=== PATIENT | female | born 1990 | race Caucasian/White ===

== ENCOUNTER 2019-02-09 15:29 | Inpatient (IN) | payer OTHER ==
[2019-02-09] MEDS ORDERED: NA CHLORIDE 0.9% 2,000 ML ONE (16:19)
[2019-02-09] MEDS ORDERED: METHYLPREDNISOLONE 125 MG INJ ONE (16:19)
[2019-02-09] MEDS ORDERED: LEVALBUTEROL 1.25 MG/3 ML NEB ONE (16:19)
[2019-02-09] MEDS ORDERED: MAGNESIUM SULFATE 1 gm IVPB 0 GM/0 ML BAG IV ONE (16:19)
[2019-02-09 16:35] LABS: Absolute Lymphocytes (CBC) 2.9 K/uL (0.7-4.9); Basophils % 0.4 % (0-1.3); Eosinophils % 1.3 % (0-4.4); Lymphocytes % 14.7 % (15.3-44.8); MPV 7.4 fL (7.6-11.3); RBC Red Blood Cell Count 4.91 M/uL (3.86-4.86)
--- NOTE | 2019-02-09 16:37 | RAD REPORT ---
EXAM DESCRIPTION: Landon Marsh And Keila (2 Views)02/09/2019 4:27 pm CLINICAL HISTORY: Cough COMPARISON: None FINDINGS: Very large tension right pneumothorax with shift of mediastinum towards the left IMPRESSION: Very large tension right pneumothorax Dr Rae notified [id number] February 09, 2019
[2019-02-09 16:38] LABS: Protime INR 0.97
[2019-02-09 16:48] LABS: ALT/SGPT 25 U/L (12-78); AST/SGOT 24 U/L (15-37); Albumin 4.3 g/dL (3.4-5.0); Alkaline Phosphatase 70 U/L (45-117); BUN Blood Urea Nitrogen 8 mg/dL (7-18); Bicarbonate 28 mmol/L (21-32); Bilirubin Direct 0.1 mg/dL (0-0.2); Bilirubin Total 0.4 mg/dL (0.2-1.0); CKMB Creatine Kinase MB < 1.0 ng/mL (0.3-3.6); Creatine Phosphokinase 61 U/L (26-192); Glucose Level 128 mg/dL (74-106); Lipase 53 U/L (73-393); Potassium 3.6 mmol/L (3.5-5.1); Protein, Total 8.2 g/dL (6.4-8.2); Sodium Level 140 mmol/L (136-145); Troponin (Emerg Dept Use Only) < 0.02 ng/mL (0.0-0.045)
[2019-02-09] MEDS ORDERED: HYDROMORPHONE HCL 1 MG/ML INJ ONE (16:48)
[2019-02-09] MEDS ORDERED: ONDANSETRON 4 MG/2 ML VIAL ONE ×2 (16:48→20:17)
[2019-02-09] MEDS ORDERED: KETAMINE HCL 500 MG/5 ML VIAL ONE (16:53)
[2019-02-09] MEDS ORDERED: MIDAZOLAM HCL 2 MG/2 ML INJ ONE (16:53)
[2019-02-09] MEDS ORDERED: LIDOCAINE 1% 20 ML MDV ONE (16:54)
--- NOTE | 2019-02-09 17:31 | RAD REPORT ---
EXAM DESCRIPTION: Cmt Single View02/09/2019 5:17 pm CLINICAL HISTORY: Right pneumothorax COMPARISON: February 09, 2019 chest x-ray FINDINGS: A right chest tube has been placed. Partial reexpansion of the right lung. Moderate right pneumothorax persists.
--- NOTE | 2019-02-09 18:13 | RAD REPORT ---
EXAM DESCRIPTION: Landon Single View02/09/2019 5:55 pm CLINICAL HISTORY: Right pneumothorax COMPARISON: February 09, 2019 FINDINGS: Right chest tube has its tip in the upper medial right hemithorax. Right pneumothorax has enlarged and is large. Zachariah from the ER notified 6:07 p.m. February 09, 2019
--- NOTE | 2019-02-09 18:50 | RAD REPORT ---
EXAM DESCRIPTION: Landon Single View02/09/2019 6:29 pm CLINICAL HISTORY: Right pneumothorax FINDINGS: The right chest tube has been retracted. Right pneumothorax still is large. Exam discussed with Dr. Masters in the emergency room 6:45 p.m.
--- NOTE | 2019-02-09 19:23 | RAD REPORT ---
EXAM DESCRIPTION: CT - Thorax W/ Con - 02/09/2019 6:51 pm CLINICAL HISTORY: Chest pain right pneumothorax COMPARISON: Multiple chest x-rays February 09, 2019 TECHNIQUE: Computed axial tomography of the chest was obtained. 100 cc Isovue 300 was administered i ntravenously. All CT scans are performed using dose optimization technique as appropriate and may include automated exposure control or mA/KV adjustment according to patient size. FINDINGS: A large tension right pneumothorax with depression of the right hemidiaphragm. Left lung is clear The right chest tube is entirely subcutaneous. It extends superiorly medially and posterior. No mediastinal or hilar lymphadenopathy is seen. A pleural effusion is not present. A pericardial effusion is not seen. IMPRESSION: Large tension right pneumothorax Right chest tube is subcutaneous Exam discussed Dr. Masters in Emergency Room 6:55 p.m. February 09, 2019
[2019-02-09] MEDS ORDERED: CEFTRIAXONE/SWI 1gm 1 GM/10 ML SYR ONE (19:28)
[2019-02-09] MEDS ORDERED: LIDOCAINE 1% MPF 30 ML VIAL ONE (19:30)
[2019-02-09] MEDS ORDERED: FENTANYL CITR 100 MCG/2 ML ONE (20:17)
--- NOTE | 2019-02-09 20:39 | ER ---
Nurse's Notes [facility] Name: Jemima Parmar Age: 28 yrs Sex: Female : 1990 Arrival Date: 02/09/2019 Time: 15:32 Bed 4 Private MD: Diagnosis: Spontaneous tension pneumothorax Presentation: 02/09 15:33 Presenting complaint: Patient states: i have bronchitis and was Rx with amoxicillin, hj today, my chest congestion is back and coughing is worse and im short of breath and sharp pain on my back; reports fever; reports night sweats;. Transition of care: patient was not received from another setting of care. Onset of symptoms was February 09, 2019. Risk Assessment: Do you want to hurt yourself or someone else? Patient reports no desire to harm self or others. Initial Sepsis Screen: Does the patient meet any 2 criteria? No. Patient's initial sepsis screen is negative. Does the patient have a suspected source of infection? No. Patient's initial sepsis screen is negative. Care prior to arrival: None. 15:33 Method Of Arrival: Ambulatory 15:33 Acuity: DEJON 3 hj 16:15 Acuity: DEJON 2 ss Triage Assessment: 19:45 General: Appears uncomfortable, slender, Behavior is calm, cooperative. Neuro: Level of bb Consciousness is awake, alert, obeys commands, Oriented to person, place, time, situation. Cardiovascular: Heart tones S1 S2 present. Respiratory: Onset: The symptoms/episode began/occurred today, the patient has moderate shortness of breath. GI: No signs and/or symptoms were reported involving the gastrointestinal system. Derm: Skin is pale. Musculoskeletal: Circulation, motion, and sensation intact. WOOL HAT FLANGER: 21:43 LMP N/A - bb Historical: - Allergies: 15:35 No Known Allergies; hj - Home Meds: 17:53 None [Active]; ch - PMHx: 17:53 placenta stuck in uterus, pt bleeding after delivery, given two blood transfusion; ch - PSHx: 15:35 None; hj - Immunization history:: Adult Immunizations up to date. - Social history:: Smoking status: Patient/guardian denies using tobacco. - Ebola Screening: : No symptoms or risks identified at this time. Screenin:56 Abuse screen: Denies threats or abuse. Denies injuries from another. Nutritional ch screening: No deficits noted. Tuberculosis screening: No symptoms or risk factors identified. Fall Risk None identified. Assessment: 15:56 Reassessment: pt appears very anxious, is speaking rapidly, full sentences well. c/o ch back pain, worsening. states family member has similar symptoms. pt is restless. 16:26 Pain: Complains of pain in back Pain currently is 8 out of 10 on a pain scale. ch Cardiovascular: Heart tones S1 S2 present Rhythm is sinus tachycardia. Respiratory: Reports shortness of breath at rest Airway is patent Respiratory effort is even, labored, Breath sounds are diminished in right middle lobe, right lower lobe, right posterior middle lobe and right posterior lower lobe Breath sounds with wheezes bilaterally. GI: Abdomen is flat, non-distended, Bowel sounds present X 4 quads. : No signs and/or symptoms were reported regarding the genitourinary system. Derm: Skin is pale. Musculoskeletal: Circulation, motion, and sensation intact. 16:30 Reassessment: Patient appears in no apparent distress at this time. pneumothorax ch identified, pt moved to room 4. 16:30 Reassessment: Patient appears in no apparent distress at this time. 1635, pt consented. ch 1639, time out performed. 17:21 Reassessment: Patient appears in no apparent distress at this time. Patient is alert, ch oriented x 3, equal unlabored respirations, skin warm/dry/pink. pt numbed at 1645, neb stopped pt placed on NRB. Chest tube successfully paced at 1657. 1658 pt tube sutured in place. Patient states feeling better. Patient states symptoms have improved. 17:26 Reassessment: Patient appears in no apparent distress at this time. pt states she still ch feels quite a bit of pain. Dr. Masters and [place] back in room to reassess, decision made to replace tube with different type due to remaining pneumo. 17:48 Reassessment: chest tube changed to cook tube, pt states she feels much better. X ray ch in room now. 17:55 Reassessment: chest tube in place, pneumo persists. physician in room to readjust and ch reassess. 18:15 Reassessment: when valve removed, suction heard, manual syring pull by results ch in small amount of air and small amount of fluids. consulting another physician now. 18:28 Reassessment: Patient appears in no apparent distress at this time. Patient and/or ch family updated on plan of care and expected duration. Pain level reassessed. Patient is alert, oriented x 3, equal unlabored respirations, skin warm/dry/pink. Patient states feeling better. Patient states symptoms have improved. Respiratory: Airway is patent Respiratory effort is even, unlabored, pt has lung sounds reji, still diminished on R side. 18:36 Reassessment: Patient appears in no apparent distress at this time. Patient and/or ch family updated on plan of care and expected duration. Pain level reassessed. order to close valve and take pt to CT. 19:09 Reassessment: Patient appears in no apparent distress at this time. I accompany pt to ct and return. pt chest tube in subcutaneous. pt tolerated trip well. pt informed she needs another chest tube. pt states she doesn't think she can do that again. pt family is angry and states they want a different dr or a surgeon or something, that her Grandma had it done and they did it on the first try. 19:12 Reassessment: Patient appears in no apparent distress at this time. pt states she is fine with Dr. Masters doing this. pt verb understanding of possible risks. 19:29 Reassessment: Patient appears in no apparent distress at this time. No changes from previously documented assessment. awaiting another Chest tube pt states she is just very tired, sleeping in room. c/o pain to R side and back intermittently. 19:40 Reassessment: pt is resting quietly Dr Masters at bedside for right sided chest tube bb placement, family at bedside. 20:24 Reassessment: Pt resting quietly, states she is feeling better, is able to take a bb deeper breath after chest tube placement. Dr Masters discussed need for admit to hospital pt verbalized understanding of and agrees to plan of care. 21:40 Reassessment: pt is A\T\O x 4, resp unlabored, NRB changed to NC at 4 LPM per verbal bb order Dr Masters, pt /o pain and medicated as ordered see MAR. Chest tube is in place, IV sites intact, patent with no erythema or edema noted. family at bedside. Vital Signs: 15:35 BP 108 / 72; Pulse 130; Resp 20; Temp 97.5(O); Pulse Ox 97% on R/A; Weight 52.62 kg; hj Height 5 ft. 7 in. (170.18 cm); Pain 8/10; 15:56 BP 90 / 52; Pulse 115; Resp 20; Pulse Ox 100% on Nebulizer Mask; ch 16:30 BP 112 / 72; Pulse 122; Resp 27; Pulse Ox 99% on Nebulizer Mask; ch 17:21 BP 124 / 85; Pulse 90; Resp 16; Temp 98.8; Pulse Ox 100% on R/A; Pain 3/10; ch 17:26 BP 128 / 93; Pulse 84; Resp 20; Pulse Ox 100% on R/A; Pain 2/10; ch 18:11 BP 126 / 94; Pulse 90; Resp 17; Pulse Ox 100% on Venturi mask; aj 18:33 BP 123 / 79; Pulse 89; Resp 23; Temp 97.9; Pulse Ox 97% on 4 lpm NC; Pain 2/10; ch 19:09 BP 118 / 81; Pulse 95; Resp 28; Pulse Ox 100% on 100% Non-rebreather mask; Pain 4/10; ch 19:31 BP 122 / 94; Pulse 79; Resp 15; Pulse Ox 100% on Non-rebreather mask; Pain 0/10; ch 20:21 BP 117 / 91; Pulse 74; Resp 18 S; Pulse Ox 100% on Non-rebreather mask; bb 20:30 BP 128 / 97; Pulse 94; Resp 22; Temp 98.5(O); Pulse Ox 100% on 15% Non-rebreather mask; bb Pain 5/10; 21:44 BP 138 / 102; Pulse 87; Resp 22 S; Pulse Ox 100% on 4 lpm NC; bb 15:35 Body Mass Index 18.17 (52.62 kg, 170.18 cm) ED Course: 15:32 Patient arrived in ED. mr 15:34 Triage completed. hj 15:35 Arm band placed on left wrist. hj 15:49 Austin Garcia NP is PHCP. pm1 15:49 Bharat Rae MD is Attending Physician. pm1 15:50 Hortencia Monson, RN is Primary Nurse. 15:56 Patient has correct armband on for positive identification. Bed in low position. Call light in reach. Side rails up X 1. security monitor on. Pulse ox on. NIBP on. Door closed. Noise minimized. Lights dimmed. 15:56 Inserted saline lock: 18 gauge in right upper arm, using aseptic technique. Blood ch collected. 16:24 Chest Pa And Lat (2 Views) XRAY In Process Unspecified. EDMS 16:24 No apparent distress. Resting quietly. ch 16:24 Initial lab(s) drawn, by mi, sent to lab. First set of blood cultures drawn. ch 17:14 XRAY Chest (1 view) In Process Unspecified. EDMS 17:55 XRAY Chest (1 view) In Process Unspecified. EDMS 17:57 Assist provider with chest tube insertion with 16 Fr. in right anterior lateral chest ch wall. Tray was set up. Attached to wall suction, Chest tube inserted by Cleveland Masters MD Placement verified by. 18:29 Chest Single View XRAY In Process Unspecified. EDMS 18:[address] via stretcher. nj 18:51 CT completed. Patient tolerated procedure well. Patient moved back from CT. nj 18:52 CT Chest W/ Con In Process Unspecified. EDMS 19:45 Assist provider with chest tube insertion with 16 Fr. in right anterior lateral chest bb wall. Tray was set up. Attached to wall suction, Chest tube inserted by Cleveland Masters MD Placement verified by CXR, fluctuation of fluid, return of air, Dressed with foam tape, silk tape, 4X4s, tegaderm Patient tolerated poorly. IV is patent, is intact. 20:18 Dionne Álvarez RN is Primary Nurse. bb 20:38 Rohan Sims MD is Hospitalizing Provider. pm1 20:40 XRAY Chest (1 view) In Process Unspecified. EDMS 20:54 Attending Physician role handed off by Bharat Rae MD ps1 20:54 Cleveland Masters MD is Attending Physician. ps1 21:43 Patient admitted, IV remains in place. bb Administered Medications: 16:10 Drug: Xopenex (3) 1.25 mg Route: Inhalation; ch 16:35 Follow up: Response: No adverse reaction; Marked relief of symptoms ch 16:20 Drug: AtroVENT Aerosol 0.5 mg Route: Inhalation; ch 16:40 Follow up: Response: No adverse reaction; Wheezing diminished ch 16:25 Drug: NS 0.9% (30 ml/kg) 30 ml/kg Route: IV; Rate: bolus; Site: right upper arm; ch 18:26 Follow up: IV Status: Order to discontinue infusion; IV Intake: 1000ml 16:25 Drug: NS 0.9% (30 ml/kg) 1500 ml Route: IV; Rate: bolus; Site: right upper arm; ch 19:19 Drug: Rocephin 1 grams Route: IV; Rate: calculated rate; Site: right antecubital; bb 19:25 Follow up: IV Status: Completed infusion; IV Intake: 10ml bb 20:08 Drug: Zofran 4 mg Route: IVP; Site: left antecubital; aj 21:04 Follow up: Response: No adverse reaction bb 20:09 Drug: fentaNYL (PF) 100 mcg Route: IVP; Site: left antecubital; aj 21:00 Follow up: Response: No adverse reaction; Pain is decreased bb 21:39 Drug: morphine 4 mg Route: IVP; Site: right antecubital; bb 21:39 Follow up: Response: medication administered prior to pt transferred to bed 407 bb Intake: 18:26 IV: 1000ml; Total: 1000ml. 19:25 IV: 10ml; Total: 1010ml. bb Outcome: 20:00 Instructed on the need for admit. bb 20:38 Decision to Hospitalize by Provider. pm1 21:42 Admitted to Med/surg accompanied by nurse, family with patient, via stretcher, room bb 407, with oxygen, with chart, Report called to Augustina RN by Ifeoma DANIEL 21:42 Condition: stable 22:00 Patient left the ED. aj Signatures: Dispatcher [employer] EDMS Hortencia Monson RN Deepthi Quijano ch RN Michelle Nguyen mr ÁlvarezDionne RN Cheri Israel RN RN ss Joaquin, Henry, RN RN hj Austin Garcia, YURI FLOOR MANAGER pm1 Edilberto Shaikh Phillip, MD MD ps1 Corrections: (The following items were deleted from the chart) 15:39 15:35 BP 108 / 72; Pulse 121bpm; Resp 20bpm; Pulse Ox 100% RA; Temp 97.5F Oral; 52.62 hj kg; Height 5 ft. 7 in.; BMI: 18.1; Pain 03/21; hj 17:20 15:56 Reassessment: Patient appears in no apparent distress at this time. pt appears ch very anxious, is speaking rapidly, full sentences well. no s/s of distress, c/o back pain, worsening. states family member has similar symptoms. pt is restless. 17:53 15:35 PMHx: None; ch 17:53 17:26 Reassessment: Patient appears in no apparent distress at this time. pt states she ch still feels quite a bit of pain. Dr. Masters and [place] back in room to reassess, decision made to replace tube with different type ch 18:49 18:[address] via wheelchair. nj nj
--- NOTE | 2019-02-09 20:39 | EDPHYS ---
Physician Documentation [facility] Name: Jemima Parmar Age: 28 yrs Sex: Female : 1990 Arrival Date: 02/09/2019 Time: 15:32 Bed 4 Private MD: ED Physician Cleveland Masters HPI: 02/09 17:11 This 28 yrs old Female presents to ER via Ambulatory with complaints of Chest pm1 Congestion, Breathing Difficulty, Back Pain. 17:11 The patient has shortness of breath at rest. Onset: The symptoms/episode began/occurred pm1 this morning. Duration: The symptoms are continuous, and are steadily getting worse. The patient's shortness of breath is aggravated by nothing, is alleviated by nothing. Associated signs and symptoms: Pertinent positives: non-productive cough, right sided back pain, Pertinent negatives: chest pain, fever, nausea, vomiting. Severity of symptoms: in the emergency department the symptoms are worse. The patient has not experienced similar symptoms in the past. The patient has not recently seen a physician. Patient with bronchitis onset about two weeks ago. Finished amoxicillin prescription from [facility] 2 days ago. Patient felt completely well yesterday and was actually went jogging yesterday. Patient reports return of cough, shortness of breath, and right sided back pain. LAB COURIER: 21:43 LMP N/A - bb Historical: - Allergies: 15:35 No Known Allergies; hj - Home Meds: 17:53 None [Active]; ch - PMHx: 17:53 placenta stuck in uterus, pt bleeding after delivery, given two blood transfusion; - PSHx: 15:35 None; hj - Immunization history:: Adult Immunizations up to date. - Social history:: Smoking status: Patient/guardian denies using tobacco. - Ebola Screening: : No symptoms or risks identified at this time. ROS: 17:11 Constitutional: Negative for fever, chills, and weight loss, Eyes: Negative for injury, pm1 pain, redness, and discharge, ENT: Negative for injury, pain, and discharge, Neck: Negative for injury, pain, and swelling, Cardiovascular: Negative for chest pain, palpitations, and edema. 17:11 Abdomen/GI: Negative for abdominal pain, nausea, vomiting, diarrhea, and constipation, Back: Negative for injury and pain, : Negative for injury, bleeding, discharge, and swelling, MS/Extremity: Negative for injury and deformity, Skin: Negative for injury, rash, and discoloration, Neuro: Negative for headache, weakness, numbness, tingling, and seizure. 17:11 Respiratory: Positive for cough, shortness of breath, Negative for wheezing. Exam: 17:11 Constitutional: This is a well developed, well nourished patient who is awake, alert, pm1 and in no acute distress. Head/Face: Normocephalic, atraumatic. Eyes: Pupils equal round and reactive to light, extra-ocular motions intact. Lids and lashes normal. Conjunctiva and sclera are non-icteric and not injected. Cornea within normal limits. Periorbital areas with no swelling, redness, or edema. ENT: Nares patent. No nasal discharge, no septal abnormalities noted. Tympanic membranes are normal and external auditory canals are clear. Oropharynx with no redness, swelling, or masses, exudates, or evidence of obstruction, uvula midline. Mucous membranes moist. Neck: Trachea midline, no thyromegaly or masses palpated, and no cervical lymphadenopathy. Supple, full range of motion without nuchal rigidity, or vertebral point tenderness. No Meningismus. Chest/axilla: Normal chest wall appearance and motion. Nontender with no deformity. No lesions are appreciated. 17:11 Abdomen/GI: Soft, non-tender, with normal bowel sounds. No distension or tympany. No guarding or rebound. No evidence of tenderness throughout. 17:11 Skin: Warm, dry with normal turgor. Normal color with no rashes, no lesions, and no evidence of cellulitis. MS/ Extremity: Pulses equal, no cyanosis. Neurovascular intact. Full, normal range of motion. 17:11 Cardiovascular: Rate: tachycardic, Rhythm: regular, Heart sounds: normal. 17:11 Respiratory: Breath sounds: decreased breath sounds, are heard in the right posterior upper lobe and right posterior middle lobe. 17:11 Back: pain, that is mild, of the right mid back. 17:11 Neuro: Motor: is normal, moves all fours. Vital Signs: 15:35 BP 108 / 72; Pulse 130; Resp 20; Temp 97.5(O); Pulse Ox 97% on R/A; Weight 52.62 kg; hj Height 5 ft. 7 in. (170.18 cm); Pain 8/10; 15:56 BP 90 / 52; Pulse 115; Resp 20; Pulse Ox 100% on Nebulizer Mask; ch 16:30 BP 112 / 72; Pulse 122; Resp 27; Pulse Ox 99% on Nebulizer Mask; ch 17:21 BP 124 / 85; Pulse 90; Resp 16; Temp 98.8; Pulse Ox 100% on R/A; Pain 3/10; ch 17:26 BP 128 / 93; Pulse 84; Resp 20; Pulse Ox 100% on R/A; Pain 2/10; ch 18:11 BP 126 / 94; Pulse 90; Resp 17; Pulse Ox 100% on Venturi mask; aj 18:33 BP 123 / 79; Pulse 89; Resp 23; Temp 97.9; Pulse Ox 97% on 4 lpm NC; Pain 2/10; ch 19:09 BP 118 / 81; Pulse 95; Resp 28; Pulse Ox 100% on 100% Non-rebreather mask; Pain 4/10; ch 19:31 BP 122 / 94; Pulse 79; Resp 15; Pulse Ox 100% on Non-rebreather mask; Pain 0/10; ch 20:21 BP 117 / 91; Pulse 74; Resp 18 S; Pulse Ox 100% on Non-rebreather mask; bb 20:30 BP 128 / 97; Pulse 94; Resp 22; Temp 98.5(O); Pulse Ox 100% on 15% Non-rebreather mask; bb Pain 5/10; 21:44 BP 138 / 102; Pulse 87; Resp 22 S; Pulse Ox 100% on 4 lpm NC; bb 15:35 Body Mass Index 18.17 (52.62 kg, 170.18 cm) Procedures: 17:11 Chest tube insertion: the site was prepped using Betadine, in sterile fashion, Tube pm1 size: a 8 scottish chest tube was inserted, introduced in right lateral [facility], dressed with tegaderm, the patient tolerated the procedure well. MDM: 15:49 Patient medically screened. pm1 20:33 Data reviewed: vital signs. Data interpreted: Pulse oximetry: on room air is 100 %. pm1 Interpretation: normal. Counseling: I had a detailed discussion with the patient and/or guardian regarding: the historical points, exam findings, and any diagnostic results supporting the discharge/admit diagnosis, lab results, radiology results, to return to the emergency department if symptoms worsen or persist or if there are any questions or concerns that arise at home. 20:37 Physician consultation: Rohan Sims MD was called at 20:37, was contacted at 20:37, pm1 regarding admission, patient's condition, and will see patient tomorrow, would like further tests performed, chest xray in the AM. 20:54 ED course: patient initially had a non-fenestrated chest tube placed from the Thal kit. ps1 It had moderate resolution of the pneumothorax. We then used the pneumothorax kit tube. CXR was used for confirmation and it appeared to look in good position but would not pull air and the PTX was worsened. CT was ordered for confimation and tube was subcutaneous in the posterior chest. Replacement of the chest tube was performed by myself and had good condensation in the tube. CXR confirmed resolution of PTX. No complications. Pt to be admitted to surgery service. . 02/09 16:03 Order name: Basic Metabolic Panel pm1 02/09 16:03 Order name: Blood Culture Adult (2) pm1 02/09 16:03 Order name: CBC with Diff pm1 02/09 16:03 Order name: Ckmb pm1 02/09 16:03 Order name: CPK; Complete Time: 17:11 pm1 02/09 16:03 Order name: Lactate; Complete Time: 17:11 pm1 02/09 16:03 Order name: LFT's; Complete Time: 17:11 pm1 02/09 16:03 Order name: Lipase; Complete Time: 17:11 pm1 02/09 16:03 Order name: Procalcitonin; Complete Time: 17:11 pm1 02/09 16:03 Order name: Protime (+inr); Complete Time: 17:11 pm1 02/09 16:03 Order name: Ptt, Activated; Complete Time: 17:11 pm1 02/09 16:03 Order name: Troponin (emerg Dept Use Only); Complete Time: 17:11 pm1 02/09 16:03 Order name: Urine Microscopic Only pm1 02/09 16:04 Order name: Basic Metabolic Panel; Complete Time: 17:11 EDWA 02/09 16:04 Order name: Blood Culture EDWA 02/09 16:04 Order name: CBC with Automated Diff; Complete Time: 17:11 EDWA 02/09 16:04 Order name: CKMB Creatine Kinase MB; Complete Time: 17:11 EDWA 02/09 16:09 Order name: Chest Pa And Lat (2 Views) XRAY; Complete Time: 17:11 pm1 02/09 16:53 Order name: XRAY Chest (1 view); Complete Time: 18:06 ss 02/09 17:38 Order name: XRAY Chest (1 view); Complete Time: 18:19 ss 02/09 18:19 Order name: Chest Single View XRAY; Complete Time: 19:59 pm1 02/09 18:38 Order name: CT Chest W/ Con; Complete Time: 19:59 pm1 02/09 20:17 Order name: XRAY Chest (1 view); Complete Time: 20:47 bb 02/09 16:03 Order name: Cardiac monitoring; Complete Time: 16:25 pm1 02/09 16:03 Order name: EKG - Nurse/Tech; Complete Time: 21:45 pm1 02/09 16:03 Order name: IV Saline Lock - Large Bore; Complete Time: 16:25 pm1 02/09 16:03 Order name: Labs collected and sent; Complete Time: 16:25 pm1 02/09 16:03 Order name: O2 Per Protocol; Complete Time: 16:25 pm1 02/09 16:03 Order name: O2 Sat Monitoring; Complete Time: 16:26 pm1 02/09 20:44 Order name: NPO EDWA Administered Medications: 16:10 Drug: Xopenex (3) 1.25 mg Route: Inhalation; ch 16:35 Follow up: Response: No adverse reaction; Marked relief of symptoms ch 16:20 Drug: AtroVENT Aerosol 0.5 mg Route: Inhalation; ch 16:40 Follow up: Response: No adverse reaction; Wheezing diminished ch 16:25 Drug: NS 0.9% (30 ml/kg) 30 ml/kg Route: IV; Rate: bolus; Site: right upper arm; ch 18:26 Follow up: IV Status: Order to discontinue infusion; IV Intake: 1000ml ch 16:25 Drug: NS 0.9% (30 ml/kg) 1500 ml Route: IV; Rate: bolus; Site: right upper arm; ch 19:19 Drug: Rocephin 1 grams Route: IV; Rate: calculated rate; Site: right antecubital; bb 19:25 Follow up: IV Status: Completed infusion; IV Intake: 10ml bb 20:08 Drug: Zofran 4 mg Route: IVP; Site: left antecubital; aj 21:04 Follow up: Response: No adverse reaction bb 20:09 Drug: fentaNYL (PF) 100 mcg Route: IVP; Site: left antecubital; aj 21:00 Follow up: Response: No adverse reaction; Pain is decreased bb 21:39 Drug: morphine 4 mg Route: IVP; Site: right antecubital; bb 21:39 Follow up: Response: medication administered prior to pt transferred to bed 407 bb Disposition: 02/10 13:13 Co-signature as Attending Physician, Cleveland Masters MD I agree with the assessment and ps1 plan of care. PA/RF MANAGER's history reviewed, patient interviewed, and examined. See my notes for additional details of service. Patient tolerated the procedure well. No VS changes. Pain addressed during procedure and breaks taken to ensure comfort. Pain medications ordered and re-administration of lidocaine injections to site. Patient experienced reasonable expected amount of discomfort during procedure however tolerated the procedure well and I addressed her pain during the procedure. Addressed concerns with patient and family. Patient led the conversation and did not express any concern and requested that I perform the procedure. . Disposition: 02/09/19 20:38 Hospitalization ordered by Rohan Sims for Inpatient Admission. Preliminary diagnosis is Spontaneous tension pneumothorax. - Bed requested for Telemetry/MedSurg (Inpatient). - Status is Inpatient Admission. aj - Condition is Stable. - Problem is new. - Symptoms have improved. UTI on Admission? No Critical care time excluding procedures: 02/09 22:20 Critical care time: Bedside Care: 25 minutes, Consultation: 20 minutes, Family pm1 Intervention: 15 minutes. Total time: 60 minutes Signatures: Dispatcher [employer] Hortencia Johansen RN RN ch Myers, Amanda, RN RN aj Ballard, Brenda, RN RN bb Joaquin, Henry, RN RN hj Garcia, Cindy, RN RN cg Marinas, Patrick, RF MANAGER RF MANAGER pm1 Cleveland Masters MD MD ps1 Corrections: (The following items were deleted from the chart) 16:12 16:05 Chest Single View+RAD.RAD.[email or web address] ordered. EDMS EDMS 17:53 15:35 PMHx: None; ch 18:28 16:03 Accucheck ordered. pm1 ch 20:57 20:38 Hospitalization Ordered by Rohan Sims MD for Inpatient Admission. Preliminary cg diagnosis is Spontaneous tension pneumothorax. Bed requested for Telemetry/MedSurg (Inpatient). Status is Inpatient Admission. Condition is Stable. Problem is new. Symptoms have improved. UTI on Admission? No. pm1 22:00 20:57 02/09/2019 20:38 Hospitalization Ordered by Rohan Sims MD for Inpatient aj Admission. Preliminary diagnosis is Spontaneous tension pneumothorax. Bed requested for Telemetry/MedSurg (Inpatient). Status is Inpatient Admission. Condition is Stable. Problem is new. Symptoms have improved. UTI on Admission? No. cg 02/10 02:49 07 17:11 Chest tube insertion: the site was prepped using Betadine, in sterile pm1 fashion, pm1
--- NOTE | 2019-02-09 20:45 | RAD REPORT ---
EXAM DESCRIPTION: RADChest Single View02/09/2019 8:39 pm CLINICAL HISTORY: Pneumothorax COMPARISON: February 09, 2019 FINDINGS: Right chest tube has been placed with re-expansion of the right lung. Small right residual pneumothorax. Right lateral chest wall subcutaneous emphysema
[2019-02-09] MEDS: NA CHLORIDE 0.9% 1,000 ML IV SCH (22:47)
[2019-02-10] MEDS: MORPHINE 4 MG/ML SYR IV PRN ×4 (04:20→20:04)
[2019-02-10 04:59] LABS: Urine Appearance CLEAR; Urine Bilirubin NEGATIVE (NEG); Urine Blood TRACE (NEG); Urine Color YELLOW; Urine Glucose NEGATIVE (NEG); Urine Protein NEGATIVE (NEG); Urine Specific Gravity >=1.030 (1.005-1.030); Urine Urobilinogen 0.2 mg/dL (0.2-1.0)
[2019-02-10 05:03] LABS: Urine Microscopic Reflex ORDER UMIC
[2019-02-10 05:17] LABS: Urine Bacteria <20 /HPF (<20); Urine Culture Reflex Order NOT NEEDED; Urine RBC <5 /HPF (NONE SEEN)
--- NOTE | 2019-02-10 08:23 | RAD REPORT ---
EXAM DESCRIPTION: RAD - Chest Single View - 02/10/2019 5:49 am CLINICAL HISTORY: Follow up admission chest Xray Chest pain. COMPARISON: Chest Single View dated 02/09/2019; Chest Single View dated 02/09/2019; Chest Single View da randy 02/09/2019; Chest Single View dated 02/09/2019; Thorax W/ Con dated 02/09/2019 FINDINGS: Portable technique limits examination quality. Moderate to large right pneumothorax is present with right-sided chest tube in place. Cardiomediastin al structures are midline. No displaced fractures. IMPRESSION: Moderate to large right pneumothorax is seen with chest tube in place directed cephalad.
[2019-02-10] MEDS: NA CHLORIDE 0.9% 1,000 ML IV SCH ×2 (09:13→17:13)
--- NOTE | 2019-02-10 10:57 | EKG ---
Test Date: 2019-02-09 Test Time: 21:27:28 Plant Taxonomist: BRANDON MEASUREMENT RESULTS: Intervals: Rate: 74 DE: 132 QRSD: 94 QT: 400 QTc: 444 Call: P: 50 DE: 132 QRS: 82 T: 72 INTERPRETIVE STATEMENTS: Normal sinus rhythm Normal ECG No previous ECG available for comparison Electronically Signed On 02-10-19 10:54:57 CDT by Juan M Soriano
--- NOTE | 2019-02-10 11:18 | P.HP ---
Date of Service: 02/10/19 PC: This patient was out running, when she noticed sudden onset of shortness of breath. She came to the emergency room for diagnosis and treatment. HPC: Patient had recently had some bronchitis. Went out for a run to see if she could help clear it. Had some coughing proceeded shortness of breath. PMH: Negative PSHx: Retained placenta SOC: No known allergies SYS REVIEW: Had a cough (which she called bronchitis) last week. No urinary complaints. Otherwise states she has a relatively good health O/E awake alert in no acute distress HEENT: Trachea midline. No JVD Chest: Surgical dressing on the right side of the chest ABD: Soft LOCO: Intact DATA: Chest x-ray shows residual pneumothorax this morning. IMPRESSION: On physical exam today and well explained to the patient her underlying pathology, noted that the wall suction had come detached from the Pleur-Evac. This may account for her residual pneumo. Obviously has air leak has the chest tube is bubbling previous sleep when not connected to the wall. PLAN: I will transfer the patient to the ICU. We will monitor her clinically. Encourage incentive spirometry. She has large bleb seen on the CT scan. I will contact a thoracic surgeon if there is no improvement and she may be a candidate for an early VATS.
--- NOTE | 2019-02-10 11:23 | P.CNS ---
Date of Consult: 02/10/19
[2019-02-10] MEDS: ONDANSETRON 4 MG/2 ML VIAL IV PRN (12:27)
--- NOTE | 2019-02-10 12:54 | RAD REPORT ---
EXAM DESCRIPTION: RAD - Chest Single View - 02/10/2019 12:47 pm CLINICAL HISTORY: Pneumothorax COMPARISON: February 09 and February 10 portable imaging, February 09 CT chest TECHNIQUE: AP portable chest image was obtained 1241 hours in expiration . FINDINGS: Right-sided chest tube remains in place with the tip in the medial right apex. Positioning is stable. Small pneumothorax remains in the apex and lateral upper right chest. The pneumothorax mclaughlin s very substantially improved imaging earlier in the day. Heart size is normal. No vascular engorgement. Minimal right pleural fluid collection present. No acu te bony abnormality seen. No acute aortic finding. Subcutaneous emphysema on the right has not change d. IMPRESSION: Right-sided pneumothorax has substantially reduced from earlier in the day. Approximatel y 10% pneumothorax remaining in the apex and lateral right upper chest. Chest tube is in place with the tip in the medial right apex similar to earlier in the day.
[2019-02-10] MEDS: HYDROCODONE/APAP 5/325 MG TAB PO PRN (17:13)
[2019-02-11] MEDS: HYDROCODONE/APAP 5/325 MG TAB PO PRN ×3 (00:21→20:00)
[2019-02-11] MEDS: NA CHLORIDE 0.9% 1,000 ML IV SCH ×4 (03:00→14:27)
[2019-02-11] MEDS: MORPHINE 4 MG/ML SYR IV PRN ×2 (05:07→20:25)
[2019-02-11 05:46] LABS: BUN Blood Urea Nitrogen 5 mg/dL (7-18); Bicarbonate 29 mmol/L (21-32); Glucose Level 95 mg/dL (74-106); Sodium Level 141 mmol/L (136-145)
[2019-02-11 05:54] LABS: Absolute Lymphocytes (CBC) 2.9 K/uL (0.7-4.9); Basophils % 0.4 % (0-1.3); Eosinophils % 4.4 % (0-4.4); Hematocrit 37.4 % (36.0-45.0); Lymphocytes % 37.7 % (15.3-44.8); MPV 7.3 fL (7.6-11.3); Monocytes % 7.3 % (3.3-12.3); RBC Red Blood Cell Count 4.13 M/uL (3.86-4.86)
--- NOTE | 2019-02-11 08:28 | RAD REPORT ---
EXAM DESCRIPTION: RAD - Chest Pa And Lat (2 Views) - 02/11/2019 7:27 am CLINICAL HISTORY: Pneumothorax, right-sided chest tube COMPARISON: February 10 TECHNIQUE: PA and lateral views the chest were obtained. PA imaging was performed in both inspiratio n and expiration. FINDINGS: The patient's known right-sided pneumothorax has substantially enlarged since the prior da y study. Pneumothorax is approximately 50% on the inspiration film and 60% or greater on the expirati on film. Right pleural fluid collection remains. Chest tube remains in place with the tip in the medi al right apex. Trachea is midline. No acute lung parenchymal process. Subcutaneous emphysema has not changed along the right lateral chest. Heart size is normal and central vasculature is within normal limits. No acute bony finding noted. No aortic abnormality. IMPRESSION: Right-sided hydropneumothorax has substantially enlarged since the prior day study. Pneu mothorax is approximately 50% on the inspiration film and 60% or greater on the expiration film. Pleural fluid volume has not changed. No change in positioning of the chest tube.
[2019-02-11] MEDS ORDERED: IBUPROFEN 200 MG TAB PO PRN (14:22)
--- NOTE | 2019-02-11 14:35 | P.PN ---
Date of Service: 02/11/19 S: S: S: Patient feels well today, in no discomfort at the moment. Does not feel short of breath. [place] tapping in the right side of the chest earlier today , but has resolved. O: Vital signs remain stable, and chest movement appears to be equal bilaterally surgical dressing is intact water-seal as connected to wall suction. Chest x-rays did today showed a 60 to 40% pneumothorax on the right side. A: The patient appears much improved, and from clinical impression I believe that the ruptured bleb is resolving. The chest x-ray today was taken down in the department is bone inspiration and expiration view but more importantly the patient was taken off the negative suction and was just to underwater seal wall she was down in the department. I believe that the size of the air leak is still in there and that is why she had size of residual pneumo on the film. P: I believe that we are making progress with this patient. Her long will stay appy if left to underwater seal and it appears that the air leak is much less today and in fact is only intermittent. Will Chest text x-ray in a.m.. If it shows improvement, may transfer to the floor. Anticipate chest tube removal possibly on Saturday or Saturday with the patient being discharged on Saturday. Later on we will try and arrange for a thoracic surgeon to evaluate this patient and see whether any further surgery such as a VATS is necessary
[2019-02-11] MEDS: ONDANSETRON 4 MG/2 ML VIAL IV PRN (20:25)
[2019-02-12] MEDS: ONDANSETRON 4 MG/2 ML VIAL IV PRN ×2 (01:08→08:32)
[2019-02-12] MEDS: MORPHINE 4 MG/ML SYR IV PRN ×5 (01:10→20:24)
[2019-02-12 07:22] VITALS: BMI 17.6
--- NOTE | 2019-02-12 08:26 | RAD REPORT ---
EXAM DESCRIPTION: RADChest Single View02/12/2019 6:00 am CLINICAL HISTORY: Right pneumothorax COMPARISON: February 11, 2019 FINDINGS: Right pneumothorax has decreased in size and is moderate. The pneumothorax involves the en tire lateral upper, mid and lower right hemithorax. Chest tube has its tip overlying upper medial rig ht hemithorax Small right pleural effusion Mild right lung opacities. Heart is normal size IMPRESSION: Right pneumothorax has decreased in size and is moderate
[2019-02-12] MEDS: NA CHLORIDE 0.9% 1,000 ML IV SCH (08:35)
--- NOTE | 2019-02-12 15:02 | P.PN ---
Date of Service: 02/12/19 S: Patient has no specific complaints. Yesterday evening has some chest discomfort, was relieved by morphine. The like something was poking on her insides. O: Chest x-ray still shows residual pneumothorax. The chest tube system was checked. I suspect the air leak at the wall suction to the apparatus connection. Chest movement equal bilaterally. The old dressing was taken down and the chest tube was inspected from insertion site to the Pleur-Evac. The Pleur-Evac was changed out. A: Considerable progress being made. It appears that the pneumo is starting to resolve. P: Patient stable the transfer to the floor. We will repeat the chest x-ray in the a.m.. In the meantime she is to continue on-20 cm of water. Underwater seal.
[2019-02-12] MEDS: HYDROCODONE/APAP 5/325 MG TAB PO PRN (22:46)
[2019-02-13] MEDS: MORPHINE 4 MG/ML SYR IV PRN ×6 (05:31→22:58)
[2019-02-13] MEDS: HYDROCODONE/APAP 5/325 MG TAB PO PRN ×2 (07:54→21:04)
--- NOTE | 2019-02-13 08:23 | RAD REPORT ---
EXAM DESCRIPTION: Cmt Single View02/13/2019 6:59 am CLINICAL HISTORY: Right pneumothorax COMPARISON: February 12, 2019 FINDINGS: The right chest tube has retracted with its tip lateral to the pleural space. Right pneumo thorax is large. Shift of mediastinum and flattening of the right hemidiaphragm indicates the pneumot horax is under tension IMPRESSION: Large tension right pneumothorax Patient's nurse Renard notified 8:15 a.m. on 02/13/2019
--- NOTE | 2019-02-13 10:01 | RAD REPORT ---
EXAM DESCRIPTION: L[place] Single View02/13/2019 9:53 am CLINICAL HISTORY: Right pneumothorax COMPARISON: February 13, 2019 FINDINGS: Chest tube has been placed with its tip in the medial upper right hemithorax. Right lung h as re-expanded. Small right pneumothorax and small right pleural effusion IMPRESSION: Right chest tube has been inserted. Right lung has re-expanded. Small residual right pne umothorax
--- NOTE | 2019-02-13 10:19 | P.PN ---
Date of Service: 02/13/19 See the call from the surgical floor that the patient's chest tube was out of the pleural cavity. Patient was admitted acute distress, but was transferred to the ICU. On physical exam the patient was relatively comfortable vital signs were stable. A 32 Slovenian chest tube was read placed into the right pleural cavity. Chest x-ray initially showed a to be advanced slightly across the midline. It has been pulled back and another chest x-ray is pending. The patient is comfortable, vital signs are stable, and she is been were reattached to the Pleur-Evac.
--- NOTE | 2019-02-13 10:22 | P.OP ---
Date of Service: 02/13/19 Findings and Operative Technique In the ICU, the patient with position on the bed with the right arm elevated. After observing universal precautions and a surgical time-out, the 5th intercostal space was identified. It was marked and then injected with 1% lidocaine. A skin incision was made. This brought down through the skin and subcutaneous tissue. We were now able to insert a thoracostomy catheter. The catheter is 32 Persian. Then the catheter was sutured in place. A chest x-ray showed that the chest tube was across the midline. It was gently withdrawn and the patient was in a comfortable condition with another chest x-ray pending. A sterile dressing has been applied.
--- NOTE | 2019-02-13 10:40 | RAD REPORT ---
[facility] 10[facility]28 am CLINICAL HISTORY: Right pneumothorax COMPARISON: February 13, 2019 FINDINGS: Right chest tube has been retracted. Tip overlies the medial mid right hemithorax. Right pneumothorax is mildly increased in size and is small to moderate.
[2019-02-13] MEDS: ONDANSETRON 4 MG/2 ML VIAL IV PRN (17:55)
[2019-02-13] MEDS ORDERED: CEFOXITIN SODIUM 1 GM/VIAL IVPB SCH (18:00)
[2019-02-13] MEDS: CEFOXITIN/SWI 1gm 1 GM/10 ML SYR IVP SCH (18:13)
[2019-02-14] MEDS: CEFOXITIN/SWI 1gm 1 GM/10 ML SYR IVP SCH ×4 (00:03→17:27)
[2019-02-14] MEDS: HYDROCODONE/APAP 5/325 MG TAB PO PRN ×2 (03:52→08:28)
--- NOTE | 2019-02-14 11:46 | RAD REPORT ---
EXAM DESCRIPTION: RAD - Chest Single View - 02/14/2019 6:59 am CLINICAL HISTORY: reassess pneumo, chest tube Chest pain. COMPARISON: Chest Single View dated 02/13/2019; Chest Single View dated 02/13/2019; Chest Single View da randy 02/13/2019; Chest Single View dated 02/12/2019; Chest Pa And Lat (2 Views) dated 02/11/2019; Chest Sing le View dated 02/10/2019; Chest Single View dated 02/10/2019 FINDINGS: Portable technique limits examination quality. Large bore right-sided chest tube is in place, unchanged. Small right apical pneumothorax is seen, mi ldly decreased in size since 02/13/2019. The heart is normal in size. Cardiomediastinal structures ar e midline. IMPRESSION: Right-sided chest tube is in place with small right apical pneumothorax, mildly diminish ed in size since 02/13/2019.
[2019-02-14] MEDS ORDERED: MAGNESIUM HYDROXIDE 8% 30 ML PO ONE (12:08)
--- NOTE | 2019-02-14 13:49 | P.PN ---
Date of Service: 02/14/19 Recieved a call from the surgical floor that the patient's chest tube was out of the pleural cavity. Patient was admitted acute distress, but was transferred to the ICU. On physical exam the patient was relatively comfortable vital signs were stable. A 32 [place] chest tube was read placed into the right pleural cavity. Chest x-ray initially showed a to be advanced slightly across the midline. It has been pulled back and another chest x-ray is pending. The patient is comfortable, vital signs are stable, and she is been were reattached to the Pleur-Evac.
--- NOTE | 2019-02-14 13:51 | P.PN ---
Date of Service: 02/14/19 S: The patient is no specific complaints, in fact is quite comfortable today. She does state however she is not had a bowel movement for 1 week. O: Vital signs remain stable, chest x-ray shows small right apical pneumo. No air leak. A: Surgically stable P: Patient will receive a laxative to have stridor have bowel movements. We will leave her on underwater seal until tomorrow's a chest x-ray. At that point , may be stable for transfer to the floor on underwater seal. This was explained to the patient, she seems comfortable with this.
[2019-02-14] MEDS: ONDANSETRON 4 MG/2 ML VIAL IV PRN ×2 (14:59→22:00)
[2019-02-14] MEDS: MORPHINE 4 MG/ML SYR IV PRN (14:59)
[2019-02-14] MEDS ORDERED: MINERAL OIL 30 ML UCUP PO ONE (17:36)
[2019-02-14] MEDS ORDERED: MAGNESIUM CITRATE 300 ML BOT PO SCH (18:00)
[2019-02-14] MEDS: IBUPROFEN 400 MG TAB PO PRN (18:15)
[2019-02-15] MEDS: CEFOXITIN/SWI 1gm 1 GM/10 ML SYR IVP SCH ×4 (00:55→17:24)
[2019-02-15] MEDS: HYDROCODONE/APAP 7.5/325 MG TAB PO PRN ×2 (06:28→21:30)
--- NOTE | 2019-02-15 07:40 | RAD REPORT ---
EXAM DESCRIPTION: RAD - Chest Single View - 02/15/2019 6:52 am CLINICAL HISTORY: Right-sided pneumothorax COMPARISON: February 14 TECHNIQUE: AP portable chest image was obtained 0643 hours . FINDINGS: No change in positioning of the right-side chest tube. Small right apical pneumothorax is still present. Size of the pneumothorax is not significantly different from the prior day study. No new or progressive lung parenchymal finding. Left lung field is clear. Trachea remains in the midl ine. Heart and vasculature are normal. No pleural fluid collection. No acute bony abnormality seen. N o acute aortic findings suspected. IMPRESSION: Right-sided apical pneumothorax stable in size from February 14 study. No change in positioning of the right chest tube.
[2019-02-15] MEDS ORDERED: BISACODYL 10 MG RECTAL SUPP PR ONE (13:00)
[2019-02-15] MEDS: IBUPROFEN 400 MG TAB PO PRN (14:22)
[2019-02-15 17:04] VITALS: O2SAT 97
--- NOTE | 2019-02-15 21:02 | P.PN ---
Date of Service: 02/15/19 S: Patient had a relatively uneventful day. No specific complaints. Finally had bowel movements. O.: Chest x-ray still shows a small apical pneumo on the right side. Chest tube was in good position with the midline inside the chest. No subcutaneous emphysema. Chest tube is on suction and there is no evidence of any leak. A: Surgically stable at the moment. Still has persistent right apical pneumo. Will just 6 x-ray in the a.m.. If still shows pneumo will discuss with thoracic surgeon regarding possible transfer as I am concerned that with the chest tube is removed with the pneumothorax will recur. P: Chest x-ray in a.m.. Possible transfer to the regular floor in the morning.
[2019-02-16] MEDS: CEFOXITIN/SWI 1gm 1 GM/10 ML SYR IVP SCH ×4 (00:50→18:35)
--- NOTE | 2019-02-16 07:52 | RAD REPORT ---
EXAM DESCRIPTION: RAD - Chest Single View - 02/16/2019 7:17 am CLINICAL HISTORY: Pneumothorax COMPARISON: February 15 TECHNIQUE: AP portable chest image was obtained 0713 hours . FINDINGS: Small right apical pneumothorax has not changed. Chest tube is unchanged in position. Left lung field remains clear. Heart and vasculature are normal. No pleural fluid collection. No acut e bony abnormality seen. No acute aortic findings suspected. IMPRESSION: No change the small right apical pneumothorax. No change in positioning of the chest tube.
[2019-02-16] MEDS: HYDROCODONE/APAP 7.5/325 MG TAB PO PRN (07:54)
[2019-02-16] MEDS: ONDANSETRON 4 MG/2 ML VIAL IV PRN (11:19)
[2019-02-16] MEDS ORDERED: DOCUSATE NA 100 MG CAP PO PRN (11:24)
--- NOTE | 2019-02-16 14:04 | P.PN ---
Date of Service: 02/16/19 S: Patient remains comfortable, no respiratory distress, no shortness of breath. O: Vital signs are stable, air entry appears to be equal bilaterally. No oscillation sh from the Pleur-Evac when taking the chest tube off section. However the chest x-ray still shows small apical right pneumothorax. A: Surgically stable but still has small right apical pneumo P: Patient is now on underwater seal. There is no evidence of any air leak. I reviewed the chest x-ray with the radiologist. He does show a small right apical pneumo. My concern is the fact that the patient has bleb seen on the original CT scan. If the chest tube is removed IM concerned that she will have an immediate recurrence or shortly thereafter of her pneumothorax. I will try and transfer this to a thoracic surgeon or at least discuss further management with him.
[2019-02-16 19:12] VITALS: BP 104/68
[2019-02-16 19:19] VITALS: TEMP 97.2
== END 2019-02-16 19:45 | disposition short-term general hospital (02) | DRG 201 ==
LOC: ER 15:29 → ERHOLD 20:40 → 4TH 21:34 → 3RD-ICU 02-10 11:28 → 2ND 02-12 16:10 → 3RD-ICU 02-13 08:45
PROVIDERS: ADMIT Surgery; ATTEND Surgery
PROC: 0W9930Z Drainage of Right Pleural Cavity with Drainage Device, Percutaneous Approach (ICD-10-PCS; principal; 2019-02-09)
PROC: 0W9930Z Drainage of Right Pleural Cavity with Drainage Device, Percutaneous Approach (ICD-10-PCS; 2019-02-13)
DX: J93.0 Spontaneous tension pneumothorax (principal)
CPT/HCPCS: 36415; 71045; 71046; 71260; 80048; 80076; 81003; 81015; 82550; 82553; 83605; 83690; 84145; 84484; 85025; 85610; 85730; 87040; 93005; 99291; 99292; J0696; J1170; J2250; J2405; J2930; J3010; J3475; J7030; Q9967

== ENCOUNTER 2019-03-14 14:15 | Emergency (ER) | payer OTHER ==
--- OUTSIDE RECORDS SUMMARY | 2019-03-14 14:17 | XMS REPORT | Clinical Summary ---
:1990 Author Organization [facility] Address [address] [place] [address] Care Team Providers Name Role Phone Pcp, No Primary Care Provider Unavailable Allergies No Known Allergies Medications Medication Sig Dispensed Refills Start End Date Status Date gabapentin Take 400 mg by 0 02/21/20 Discontinued (NEURONTIN) 400 MG mouth as needed. 19 capsule gabapentin Take 1 capsule 30 capsule 0 03/02/20 (NEURONTIN) 300 MG (300 mg total) 9 19 capsule by mouth 3 (three) times daily for 10 days. acetaminophen Take 2 tablets 30 tablet 0 03/02/20 (TYLENOL) 325 MG (650 mg total) 9 19 tablet by mouth every 6 (six) hours as needed for Pain for up to 10 days. cyclobenzaprine Take 1 tablet 30 tablet 0 03/02/20 (FLEXERIL) 10 MG (10 mg total) by 9 19 tablet mouth 3 (three) times daily as needed for Muscle spasms for up to 10 days. docusate sodium Take 1 capsule 10 capsule 0 03/02/20 (COLACE) 100 MG (100 mg total) 9 19 capsule by mouth 3 (three) times daily as needed for Constipation for up to 10 days. oxyCODONE Take 1 tablet (5 30 tablet 0 03/02/20 (ROXICODONE) 5 MG mg total) by 9 19 immediate release mouth every 4 tablet (four) hours as needed for up to 10 days. Max Daily Amount: 30 mg Active Problems Problem Noted Date Pneumothorax 02/16/2019 Encounters Date Type Specialty Care Team Description 02/17/2019 Anesthesia Event Luan Clarke 02/17/2019 Surgery ChristianoLuan vasquez THORACOSCOPY Ifeoma Mcgee MD (VATS),PARIETAL PLEURECTOMY 02/16/2019 - Hospital Encounter Intensive Care Luan Alvarado Primary spontaneous 02/20/2019 Ifeoma Mcgee MD pneumothorax 02/16/2019 Travel 02/16/2019 Orders Only Jenn Mclain MD after 03/13/2018 Family History Medical History Relation Name Comments Hypertension Father Colon cancer Maternal Grandmother Lung cancer Maternal Grandmother Hypertension Mother Relation Name Status Comments Father Maternal Grandmother Mother Social History Tobacco Use Types Packs/Day Years Used Date Former Smoker Cigarettes 0.5 10 Quit: 01/10/2019 Smokeless Tobacco: Never Used Comments: e-cigs and vape user when quitting cigarettes Alcohol Use Drinks/Week oz/Week Comments No Alcohol Habits Answer Date Recorded How often do you have a drink containing alcohol? Never 02/16/2019 How many drinks containing alcohol do you have on a typical Not asked day when you are drinking? How often do you have six or more drinks on one occasion? Not asked Sex Assigned at Date Recorded Not on file Job Start Date Occupation Industry Not on file Not on file Not on file Travel History Travel Start Travel End No recent travel history available. Last Filed Vital Signs Vital Sign Reading Time Taken Blood Pressure 111/67 02/20/2019 6:00 AM CDT Pulse 92 02/20/2019 8:46 AM CDT Temperature 36.8 C (98.3 F) 02/20/2019 6:00 AM CDT Respiratory Rate 20 02/20/2019 8:46 AM CDT Oxygen Saturation 99% 02/20/2019 8:46 AM CDT Inhaled Oxygen Concentration - - Weight 51.8 kg (114 lb 3.2 oz) 02/20/2019 6:00 AM CDT Height 170.2 cm (5' 7") 02/16/2019 9:00 PM CDT Body Mass Index 17.89 02/20/2019 6:00 AM CDT Plan of Treatment Not on file Procedures Procedure Name Priority Date/Time Associated Comments Diagnosis RHYTHM STRIP - SCAN 02/23/2019 2:14 PM CDT XR CHEST 1 VIEW Routine 02/20/2019 12:13 Results for this PORTABLE/BEDSIDE PM CDT procedure are in the results section. XR CHEST 1 VIEW Routine 02/20/2019 4:04 Results for this PORTABLE/BEDSIDE AM CDT procedure are in the results section. XR CHEST 1 VIEW STAT 02/19/2019 11:00 Results for this PORTABLE/BEDSIDE PM CDT procedure are in the results section. XR CHEST 1 VIEW Routine 02/19/2019 12:15 Results for this PORTABLE/BEDSIDE PM CDT procedure are in the results section. CBC W/PLT COUNT & AUTO Routine 02/19/2019 4:43 Results for this DIFFERENTIAL AM CDT procedure are in the results section. MAGNESIUM Routine 02/19/2019 4:43 Results for this AM CDT procedure are in the results section. BASIC METABOLIC PANEL Routine 02/19/2019 4:43 Results for this (7) AM CDT procedure are in the results section. CBC W/PLT COUNT & AUTO Routine 02/19/2019 4:43 Results for this DIFFERENTIAL AM CDT procedure are in the results section. XR CHEST 1 VIEW Routine 02/19/2019 3:19 Results for this PORTABLE/BEDSIDE AM CDT procedure are in the results section. TRANSFUSION SERVICE 02/18/2019 5:52 REPORT - SCAN PM CDT CBC W/PLT COUNT & AUTO Routine 02/18/2019 12:53 Results for this DIFFERENTIAL PM CDT procedure are in the results section. CBC W/PLT COUNT & AUTO Routine 02/18/2019 12:53 Results for this DIFFERENTIAL PM CDT procedure are in the results section. XR CHEST 1 VIEW Routine 02/18/2019 4:02 Results for this PORTABLE/BEDSIDE AM CDT procedure are in the results section. XR CHEST 1 VIEW Routine 02/17/2019 10:11 Results for this PORTABLE/BEDSIDE AM CDT procedure are in the results section. TISSUE EXAM AP Routine 02/17/2019 8:52 Results for this AM CDT procedure are in the results section. THORACOSCOPY 02/17/2019 7:30 Pneumothorax, (VATS),WEDGE RESECTION AM CDT right W/ OR W/OUT LYMPHADENECTOMY THORACOSCOPY 02/17/2019 7:30 Pneumothorax, (VATS),PLEURODESIS AM CDT right THORACOSCOPY 02/17/2019 7:30 Pneumothorax, (VATS),PARIETAL AM CDT right PLEURECTOMY ABORH, MANUAL STAT 02/17/2019 6:15 Results for this AM CDT procedure are in the results section. PHOSPHORUS Routine 02/17/2019 6:15 Results for this AM CDT procedure are in the results section. MAGNESIUM Routine 02/17/2019 6:15 Results for this AM CDT procedure are in the results section. BASIC METABOLIC PANEL Routine 02/17/2019 6:15 Results for this (7) AM CDT procedure are in the results section. TYPE AND SCREEN, Routine 02/17/2019 5:17 Results for this AUTOMATED AM CDT procedure are in the results section. CBC (HEMOGRAM ONLY) Routine 02/17/2019 5:17 Results for this AM CDT procedure are in the results section. XR CHEST 1 VIEW Routine 02/17/2019 3:45 Results for this PORTABLE/BEDSIDE AM CDT procedure are in the results section. CT CHEST WITHOUT IV STAT 02/17/2019 1:19 Results for this CONTRAST AM CDT procedure are in the results section. SCREEN, URINE REYMUNDO 02/16/2019 10:39 Results for this PM CDT procedure are in the results section. XR CHEST 1 VIEW STAT 02/16/2019 9:42 Results for this PORTABLE/BEDSIDE PM CDT procedure are in the results section. after 03/13/2018 Results RHYTHM STRIP - SCAN (02/23/2019 2:14 PM CDT) Narrative Performed At XR chest 1 view portable / bedside (02/20/2019 12:13 PM CDT)Only the most recent of9 resultswithin the time period is included. Specimen Narrative Performed At FINAL REPORT [facility] Exam: RAD, CHEST, 1 VIEW, NON DEPT Date: 02/20/2019 1:05 PM Indication: Chest tube removal Comparison: Chest radiograph of earlier the same day. FINDINGS: Lines/Tubes: Interval removal of both right chest tubes. EKG leads overlie the thorax. Lungs: The lungs are well-inflated. No focal consolidation or pulmonary edema. Pleura: Unchanged layering right pleural effusion. No pneumothorax. Heart/Mediastinum:The cardiomediastinal silhouette is unchanged in size and contour. Bones/Soft Tissues:No acute fracture or dislocation. Abdomen:No free air under the diaphragm. IMPRESSION: Interval removal of right chest tubes. No pneumothorax. Unchanged layering right pleural effusion. Signed: Radha Cardozo MD Report Verified Date/Time:02/20/2019 13:07:10 Reading Location: [facility] C0[facility] Transitional Reading Room Procedure Note Interface, External Ris In - 02/20/2019 1:09 PM CDT FINAL REPORT Exam: RAD, CHEST, 1 VIEW, NON DEPT Date: 02/20/2019 1:05 PM Indication: Chest tube removal Comparison: Chest radiograph of earlier the same day. FINDINGS: Lines/Tubes: Interval removal of both right chest tubes. EKG leads overlie the thorax. Lungs: The lungs are well-inflated. No focal consolidation or pulmonary edema. Pleura: Unchanged layering right pleural effusion. No pneumothorax. Heart/Mediastinum:The cardiomediastinal silhouette is unchanged in size and contour. Bones/Soft Tissues:No acute fracture or dislocation. Abdomen:No free air under the diaphragm. IMPRESSION: Interval removal of right chest tubes. No pneumothorax. Unchanged layering right pleural effusion. Signed: Radha Cardozo MD Report Verified Date/Time: 02/20/2019 13:07:10 Reading Location: [address] Transitional Reading Room Performing Organization Address City/State/Zipcode Phone Number RIS CBC with platelet count + automated diff (02/19/2019 4:43 AM CDT)Only the most recent of2 resultswithin the time period is included. WBC 10.3 3.5 - 10.5 K/L [facility] RBC 3.06 (L) 3.93 - 5.22 M/L [facility] Hemoglobin 9.3 (L) 11.2 - 15.7 GM/DL [facility] Hematocrit 28.7 (L) 34.1 - 44.9 % [facility] MCV 93.8 79.4 - 94.8 fL [facility] MCH 30.4 25.6 - 32.2 pg [facility] MCHC 32.4 32.2 - 35.5 GM/DL [facility] RDW 11.9 11.7 - 14.4 % [facility] Platelets 283 150 - 450 K/CU MM [facility] MPV 9.2 (L) 9.4 - 12.3 fL [facility] nRBC 0 0 - 0 /100 WBC [facility] % Neutros 59 % [facility] % Lymphs 26 % [facility] % Monos 9 % [facility] % Eos 5 % [facility] % Baso 0 % [facility] # Neutros 6.13 1.56 - 6.13 K/L [facility] # Lymphs 2.71 1.18 - 3.74 K/L [facility] # Monos 0.90 (H) 0.24 - 0.36 K/L [facility] # Eos 0.50 (H) 0.04 - 0.36 K/L [facility] # Baso 0.04 0.01 - 0.08 K/L [facility] Immature Granulocytes-Relative 1 0 - 1 % [facility] Specimen Blood Performing Organization Address City/[facility]/Zipcode Phone Number [address] [address] CENTER Magnesium (02/19/2019 4:43 AM CDT)Only the most recent of2 resultswithin the time period is included. Magnesium 1.7 1.6 - 2.6 mg/dL [facility] Specimen Blood Performing Organization Address City/[facility]/Zipcode Phone Number [address] [address] [phone] CENTER Basic Metabolic Panel (02/19/2019 4:43 AM CDT)Only the most recent of2 resultswithin the time period is included. Sodium 136 136 - 145 meq/L [facility] Potassium 4.0 3.5 - 5.1 meq/L [facility] Chloride 102 98 - 107 meq/L [facility] CO2 26 22 - 29 meq/L [facility] BUN 5 (L) 7 - 21 mg/dL [facility] Creatinine 0.64 0.57 - 1.25 mg/dL [facility] Glucose 129 (H) 70 - 105 mg/dL [facility] Calcium 8.8 8.4 - 10.2 mg/dL [facility] EGFR 112Comment: ESTIMATED GFR IS mL/min/1.73 sq m [facility] NOT ACCURATE CREATININE [facility] CLEARANCE IN PREDICTING GLOMERULAR FILTRATION RATE. ESTIMATED GFR IS NOT APPLICABLE FOR DIALYSIS PATIENTS. Specimen Blood Performing Organization Address City/State/Zipcode Phone Number [address] [address] CENTER TRANSFUSION SERVICE REPORT - SCAN (02/18/2019 5:52 PM CDT) Narrative Performed At Tissue Exam (02/17/2019 8:52 AM CDT) Case Report Surgical Pathology Report Case: [id number] [facility] Authorizing Provider:Luan Alvarado Jr., Collected: 02/17/2019 0852 [facility] Ordering Location: [address]: 02/17/2019 0943 Pathologist: Jing Ch MD Specimens: A) - Lung, Right Middle Lobe, Right Middle Lobe Wedge B) - Lung, Right Upper Lobe, Right Upper Lobe Wedge C) - Pleura, Right Parietal Pleura DIAGNOSIS A. LUNG, RIGHT MIDDLE LOBE, WEDGE RESECTION: [facility] - PLEURAL THICKENING WITH FIBROSIS AND ADHESION [facility] - BENIGN BULLOUS DISEASE - GRANULATION TISSUE AND FOCAL HEMORRHAGE - MESOTHELIAL HYPERPLASIA B. LUNG, RIGHT UPPER LOBE, WEDGE RESECTION: - PLEURAL THICKENING WITH FIBROSIS AND ADHESION - BENIGN BULLOUS DISEASE - GRANULATION TISSUE AND FOCAL HEMORRHAGE - MESOTHELIAL HYPERPLASIA C. RIGHT PARIETAL PLEURA, PARTIAL PARIETAL PLEURECTOMY: - PLEURAL WITH ADHESION, MARKED MESOTHELIAL HYPERPLASIA AND REACTIVE CHANGE CC/pl Signing Pathologist Direct Phone Line: [phone] COMMENT The overall findings are [facility] compatible with history of [facility] spontaneous pneumothorax. Recommend clinical correlation. CPT Code(s) 64495 x2, [address] [facility] CLINICAL HISTORY Pre and postop diagnosis: [facility] Pneumothorax, right [facility] SPECIMEN SOURCE A. Right middle lobe wedge; [facility] B. Right upper lobe wedge; C. [facility] Right parietal pleura GROSS DESCRIPTION A. Received fresh labeled with the patient's name, accession number and "lung, right middle lobe" is a 1.9 cm, 5 x 1.5 x 1 cm lung wedge. The pleura displays a focal area of hemorrhage. The remaining pl [facility] eura is lavender-pink and smooth. The specimen is serially sectioned to reveal pink-red, spongy parenchyma with no gross lesions. The specimen is entirely submitted in A1-A3. [facility] B. Received fresh labeled with the patient's name, accession number and "right upper lobe wedge" is 4.0 gm, 5.9 x 2.5 x 1.3 cm lung wedge. The pleura displays a focal area of adhesion with hemorrhage. T he remaining pleura is lavender-warner, maroon to pink and mottled and smooth. The area of adhesion is inked blue. The specimen is serially sectioned to reveal red-pink, spongy parenchyma with areas of ant hracosis. No gross lesions are identified. Manager Bridge sections of the area of adhesion with hemorrhage are submitted in B1-B3. C. Received in formalin labeled with the patient's name, accession number and "right parietal" is a 2.5 x 2 x 0.3 cm aggregate of multiple, irregular pink -white fibromembranous tissue fragments with att ached adipose tissue. The specimen is submitted in toto in C1. CG/pl MICROSCOPIC DESCRIPTION A and B: The right middle [facility] lobe and right upper lobe [facility] wedge resection show similar findings. They show the lung parenchyma with markedly thickened pleura with fibrosis and adhesion. There is also benign with granulation tissue and hemorrhage . Focal mesothelial hyperplasia is also seen. It is negative for malignancy. Specimen Tissue Tissue - Structure of upper lobe of right lung (body structure) Tissue - Pleural membrane structure (body structure) Performing Organization Address [facility] Phone Number [address] [address] CENTER ABORH, manual (02/17/2019 6:15 AM CDT) ABO Grouping O [facility] Rh Factor NEG [facility] Specimen Blood Performing Organization Address [facility] Phone Number [address] [address] [phone] Phosphorus (02/17/2019 6:15 AM CDT) Phosphorus 3.7Comment: Specimen slightly 2.3 - 4.7 mg/dL [facility] hemolyzed [facility] Specimen Blood Performing Organization Address [facility] Phone Number [address] [address] [phone] CENTER Type and screen, automated (02/17/2019 5:17 AM CDT) ABO/RH AUTOMATED (BEAKER) O NEGATIVE [facility] Ab Scrn NEGATIVE [facility] Specimen Blood Performing Organization Address [facility] Phone Number [address] [address] CBC (Hemogram only) (02/17/2019 5:17 AM CDT) WBC 8.6 3.5 - 10.5 K/L [facility] RBC 4.16 3.93 - 5.22 M/L [facility] Hemoglobin 12.6 11.2 - 15.7 GM/DL [facility] Hematocrit 37.8 34.1 - 44.9 % [facility] MCV 90.9 79.4 - 94.8 fL [facility] MCH 30.3 25.6 - 32.2 pg [facility] MCHC 33.3 32.2 - 35.5 GM/DL [facility] RDW 11.8 11.7 - 14.4 % [facility] Platelets 302 150 - 450 K/CU MM [facility] MPV 9.0 (L) 9.4 - 12.3 fL [facility] nRBC 0 0 - 0 /100 WBC [facility] Specimen Blood Performing Organization Address City/State/Zipcode Phone Number [facility] [address] [place] [address] chest without IV contrast (02/17/2019 1:19 AM CDT) Specimen Narrative Performed At FINAL REPORT [place] CLINICAL INDICATION: Shortness of breath, pneumothorax COMPARISON: None Multiple axial images of the chest were performed without IV contrast. This exam was performed according to our departmental dose-optimization program, which includes automated exposure control, adjustment of the mA and/or kV according to patient size and/or use of the iterative reconstruction technique. FINDINGS: Lung parenchyma: Punctate calcified granulomata in the bilateral upper lobes. No consolidation, mass or suspicious nodule. Small biapical bullae/blebs. Pleural effusion: None. Pneumothorax: Small right pneumothorax, primarily in the nondependent anterior right pleural space. A right chest tube is present in the major fissure. There is a small amount of overlying cutaneous emphysema. Tracheobronchial tree: No significant findings. Pulmonary vasculature: No significant findings. Cardiac contours and great vessels: No significant findings. Mediastinum: No significant findings. Lymph Nodes: No adenopathy in the mediastinum or armando. Skeleton: No acute abnormality. Limited images of upper abdomen: No significant findings. IMPRESSION: Small right pneumothorax. A right chest tube is in place, with the distal portion in the major fissure. Small biapical bullae/blebs. Signed: Oscar Noel MD Report Verified Date/Time:02/17/2019 02:53:00 Reading Location: [address] Reading Room Procedure Note Interface, External Ris In - 02/17/2019 2:55 AM CDT FINAL REPORT CLINICAL INDICATION: Shortness of breath, pneumothorax COMPARISON: None Multiple axial images of the chest were performed without IV contrast. This exam was performed according to our departmental dose-optimization program, which includes automated exposure control, adjustment of the mA and/or kV according to patient size and/or use of the iterative reconstruction technique. FINDINGS: Lung parenchyma: Punctate calcified granulomata in the bilateral upper lobes. No consolidation, mass or suspicious nodule. Small biapical bullae/blebs. Pleural effusion: None. Pneumothorax: Small right pneumothorax, primarily in the nondependent anterior right pleural space. A right chest tube is present in the major fissure. There is a small amount of overlying cutaneous emphysema. Tracheobronchial tree: No significant findings. Pulmonary vasculature: No significant findings. Cardiac contours and great vessels: No significant findings. Mediastinum: No significant findings. Lymph Nodes: No adenopathy in the mediastinum or armando. Skeleton: No acute abnormality. Limited images of upper abdomen: No significant findings. IMPRESSION: Small right pneumothorax. A right chest tube is in place, with the distal portion in the major fissure. Small biapical bullae/blebs. Signed: Oscar Noel MD Report Verified Date/Time: 02/17/2019 02:53:00 Reading Location: [address] Reading Room Performing Organization Address City/State/Zipcode Phone Number RIS Screen, urine (02/16/2019 10:39 PM CDT) Preg Test, Ur Negative [facility] Specimen Urine Performing Organization Address City/[facility]/Zipcode Phone Number [address] [address] [phone] CENTER after 03/13/2018 Insurance Payer Benefit Plan / Subscriber ID Type Phone Address Group MEDICAID - MEDICAID [facility] COMM STAR xxxxxxxxx Medicaid Contracted MGD CARE PLAN Advance Directives For more information, please contact:[address] [phone] Code Status Date Activated Date Inactivated Comments Full Code 02/16/2019 10:02 PM 02/20/2019 5:30 PM This code status was determined by: Patient
--- OUTSIDE RECORDS SUMMARY | 2019-03-14 14:17 | XMS REPORT ---
:1990 [facility] Sourav Tolentino [address] [place] [id number] Care Team Providers Name Role Phone RADHA ARAUJO Unavailable Unavailable Problems This patient has no known problems. Allergies, Adverse Reactions, Alerts This patient has no known allergies or adverse reactions. Medications This patient has no known medications. Results Test Description Test Time Test Comments Text Results Atomic Results Result Comments TISSUE EXAM 2019-02-23 Surgical Pathology Report 18:18:00 Case: [id number] Authorizing Provider: Radha Araujo Jr., Collected: 02/17/2019 0852 Ordering Location: [address] Received: 02/17/2019 0943 Pathologist: Jing Ch MD Specimens: A) - Lung, Right Middle Lobe, Right Middle Lobe Wedge B) - Lung, Right Upper Lobe, Right Upper Lobe Wedge C) - Pleura, Right Parietal Pleura A. LUNG, RIGHT MIDDLE LOBE, WEDGE RESECTION: - PLEURAL THICKENING WITH FIBROSIS AND ADHESION - BENIGN BULLOUS DISEASE - GRANULATION TISSUE AND FOCAL HEMORRHAGE - MESOTHELIAL HYPERPLASIA B. LUNG, RIGHT UPPER LOBE, WEDGE RESECTION: - PLEURAL THICKENING WITH FIBROSIS AND ADHESION - BENIGN BULLOUS DISEASE - GRANULATION TISSUE AND FOCAL HEMORRHAGE - MESOTHELIAL HYPERPLASIAC. RIGHT PARIETAL PLEURA, PARTIAL PARIETAL PLEURECTOMY: - PLEURAL WITH ADHESION, MARKED MESOTHELIAL HYPERPLASIA AND REACTIVE CHANGECC/pl Signing Pathologist Direct Phone Line: [phone] signed by Jing Ch MD on 02/23/2019 at 6:18 PMThe overall findings are compatible with history of spontaneous pneumothorax. [place]. [id number] x2, 15[address]Ffm and postop diagnosis: Pneumothorax, rightA. Right middle lobe wedge; B. Right upper lobe wedge; C. Right parietal pleuraA. Received fresh labeled with the patient's name, accession number and "lung, right middle lobe" is a 1.9 cm, 5 x 1.5 x 1 cm lung wedge. The pleura displays a focal area of hemorrhage. The remaining pleura is lavender-pink and smooth. The specimen is serially sectioned to reveal pink-red, spongy parenchyma with no gross lesions. The specimen is entirely submitted in A1-A3. B. Received fresh labeled with the patient's name, accession number and "right upper lobe wedge" is 4.0 gm, 5.9 x 2.5 x 1.3 cm lung wedge. The pleura displays a focal area of adhesion with hemorrhage. The remaining pleura is lavender-warner, maroon to pink and mottled and smooth. The area of adhesion is inked blue. The specimen is serially sectioned to reveal red-pink, spongy parenchyma with areas of anthracosis. No gross lesions are identified. Paste Mixer Liquid sections of the area of adhesion with hemorrhage are submitted in B1-B3. C. Received in formalin labeled with the patient's name, accession number and "right parietal" is a 2.5 x 2 x 0.3 cm aggregate of multiple, irregular pink-white fibromembranous tissue fragments with attached adipose tissue. The specimen is submitted in toto in C1. CG/pl A and B: The right middle lobe and right upper lobe wedge resection show similar findings. They show the lung parenchyma with markedly thickened pleura with fibrosis and adhesion. There is also benign with granulation tissue and hemorrhage . Focal mesothelial hyperplasia is also seen. It is negative for malignancy. RAD, CHEST, 1 2019-02-20 Reason for exam:->CT FINAL REPORT PATIENT ID: INGA TORIBIO 13:07:00 removalShould this [id number] Exam: RAD, CHEST, 1 DEPT [facility], NON DEPTDate: 02/20/2019 bedside?->Yes 1:05 PM Indication: Chest tube removal Comparison: [...] dislocation. Abdomen:No free air under the diaphragm. IMPRESSION:Interval removal of right chest tubes. No pneumothorax. Unchanged layering right pleural effusion. Signed: Radha Cardozo MDRroseannort Verified Date/Time: 02/20/2019 13:07:10 Reading Location: [facility] [address] [place] [address] Reading Room , CHEST, 1 2019-02-20 Reason for FINAL REPORT PATIENT ID: VIEW, NON 05:26:00 exam:->pneumothoraxS [id number] Chest one view. DEPT hould this be Clinical history: pneumothorax performed at the Comparison: Chest radiograph bedside?->Yes 02/19/2019 Technique: A single frontal view of the chest was obtained. Findings:There are right-sided chest tubes unchanged.The cardiomediastinal contours are stable. There are post surgical changes in the right hemithorax with small loculated pleural fluid. There is no pneumothorax. Signed: Silver Novak MDReport Verified Date/Time: 02/20/2019 05:26:31 , CHEST, 1 2019-02-19 Reason for FINAL REPORT PATIENT ID: VIEW, NON 23:15:00 exam:->pneomothoraxS [id number] EXAMINATION: AP PORTABLE DEPT hould this be CHEST RADIOGRAPH CLINICAL performed at the INDICATION: Pneumothorax. Chest bedside?->Yes tubes. IMPRESSION: Compared with 02/19/2019, 1215 hours. Right-sided chest tubes are again noted, similar in position. Asymmetric right lung parenchymal and pleural opacities are similar to previous. A small right-sided pneumothorax is also again suspected, stable. Left lung remains relatively clear. Cardiac and mediastinal contours are unchanged. Signed: Dereje Elliott MDRroseannort Verified Date/Time: 02/19/2019 23:15:02 Reading Location: [address] Reading Room , CHEST, 1 2019-02-19 Reason for exam:->CT FINAL REPORT PATIENT ID: VIEW, NON 13:31:00 to water sealShould [id number] TECHNIQUE: Frontal DEPT this be performed at chest radiograph dated 02/19/2019. the bedside?->Yes CLINICAL HISTORY: CT to water seal COMPARISON STUDY: Chest radiograph performed earlier the same day Impression:Two right-sided chest tubes are unchanged in position. There is increased density in the lateral aspect of the right lung, likely bilateral layering effusion versus overlying objects. Left lung is clear. No pneumothorax. Cardiomediastinal silhouette is normal in size. No pulmonary edema. Bones appear osteopenic for patient's stated age. Signed: Kali Chavez MDReport Verified Date/Time: 02/19/2019 13:31:14 Reading Location: [facility] Reading Room ESIUM 2019-02-19 06:28:00 Test Item Value Reference Range Comments MAGNESIUM (BEAKER) (test gbjn=147) 1.7 mg/dL 1.6-2.6 BASIC METABOLIC [id number] 06:28:00 Test Item Value Reference Range Comments SODIUM (BEAKER) (test 136 meq/L 136-145 cbgb=115) POTASSIUM (BEAKER) (test 4.0 meq/L 3.5-5.1 rjpa=236) CHLORIDE (BEAKER) (test 102 meq/L 98-107 xgnm=752) CO2 (BEAKER) (test 26 meq/L 22-29 obwv=341) BLOOD UREA NITROGEN 5 mg/dL 7-21 (BEAKER) (test yzcw=140) CREATININE (BEAKER) (test 0.64 mg/dL 0.57-1.25 yiob=992) GLUCOSE RANDOM (BEAKER) 129 mg/dL 70-105 (test sypj=186) CALCIUM (BEAKER) (test 8.8 mg/dL 8.4-10.2 orue=165) EGFR (BEAKER) (test 112 mL/min/1.73 sq m ESTIMATED GFR IS NOT reot=5836) ACCURATE CREATININE CLEARANCE IN PREDICTING GLOMERULAR FILTRATION RATE. ESTIMATED GFR IS NOT APPLICABLE FOR DIALYSIS PATIENTS. CBC W/PLT COUNT & AUTO [id number] 05:42:00 Test Item Value Reference Range Comments WHITE BLOOD CELL COUNT (BEAKER) (test iyrz=207) 10.3 K/ L 3.5-10.5 RED BLOOD CELL COUNT (BEAKER) (test zuym=466) 3.06 M/ L 3.93-5.22 HEMOGLOBIN (BEAKER) (test cspc=857) 9.3 GM/DL 11.2-15.7 HEMATOCRIT (BEAKER) (test wpkh=473) 28.7 % 34.1-44.9 MEAN CORPUSCULAR VOLUME (BEAKER) (test yety=879) 93.8 fL 79.4-94.8 MEAN CORPUSCULAR HEMOGLOBIN (BEAKER) (test 30.4 pg 25.6-32.2 vaoy=709) MEAN CORPUSCULAR HEMOGLOBIN CONC (BEAKER) (test 32.4 GM/DL 32.2-35.5 gltt=208) RED CELL DISTRIBUTION WIDTH (BEAKER) (test 11.9 % 11.7-14.4 vcos=151) PLATELET COUNT (BEAKER) (test sgba=044) 283 K/CU MM 150-450 MEAN PLATELET VOLUME (BEAKER) (test uxkv=116) 9.2 fL 9.4-12.3 NUCLEATED RED BLOOD CELLS (BEAKER) (test 0 /100 WBC 0-0 cdin=345) NEUTROPHILS RELATIVE PERCENT (BEAKER) (test 59 % vdbd=299) LYMPHOCYTES RELATIVE PERCENT (BEAKER) (test 26 % gjpc=773) MONOCYTES RELATIVE PERCENT (BEAKER) (test 9 % tgcn=939) EOSINOPHILS RELATIVE PERCENT (BEAKER) (test 5 % wzyg=798) BASOPHILS RELATIVE PERCENT (BEAKER) (test 0 % wehc=271) NEUTROPHILS ABSOLUTE COUNT (BEAKER) (test 6.13 K/ L 1.56-6.13 jgvk=570) LYMPHOCYTES ABSOLUTE COUNT (BEAKER) (test 2.71 K/ L 1.18-3.74 usmd=170) MONOCYTES ABSOLUTE COUNT (BEAKER) (test 0.90 K/ L 0.24-0.36 iysu=459) EOSINOPHILS ABSOLUTE COUNT (BEAKER) (test 0.50 K/ L 0.04-0.36 ojhl=881) BASOPHILS ABSOLUTE COUNT (BEAKER) (test 0.04 K/ L 0.01-0.08 qtiv=390) IMMATURE GRANULOCYTES-RELATIVE PERCENT (BEAKER) 1 % 0-1 (test qpem=8353) RAD, CHEST, 1 VIEW, NON [id number] 04:23:00Reason for exam:-> pneumothoraxShould this be performed at the bedside?->YesFINAL REPORT EXAMINATION: AP PORTABLE CHEST RADIOGRAPH CLINICAL INDICATION: Pneumothorax IMPRESSION: Compared with 02/18/2019. Right-sided chest tubes are grossly stable in position. The asymmetric right lung opacities, right pleural effusion and small right-sided pneumothorax are similar to previous. No definite evidence of new lung consolidation. Cardiac and mediastinal contours are unchanged. Signed: Dereje Elliott MDReport Verified Date/ Time: 02/19/2019 04:23:03 Reading Location: [address] Reading Room CBC W/PLT COUNT & AUTO [id number] 13:24:00 Test Item Value Reference Range Comments WHITE BLOOD CELL COUNT (BEAKER) (test nxxv=700) 11.6 K/ L 3.5-10.5 RED BLOOD CELL COUNT (BEAKER) (test eibu=725) 3.40 M/ L 3.93-5.22 HEMOGLOBIN (BEAKER) (test sbeo=508) 10.4 GM/DL 11.2-15.7 HEMATOCRIT (BEAKER) (test rpug=691) 31.3 % 34.1-44.9 MEAN CORPUSCULAR VOLUME (BEAKER) (test emed=526) 92.1 fL 79.4-94.8 MEAN CORPUSCULAR HEMOGLOBIN (BEAKER) (test 30.6 pg 25.6-32.2 cofp=489) MEAN CORPUSCULAR HEMOGLOBIN CONC (BEAKER) (test 33.2 GM/DL 32.2-35.5 qmby=826) RED CELL DISTRIBUTION WIDTH (BEAKER) (test 11.9 % 11.7-14.4 rzis=233) PLATELET COUNT (BEAKER) (test xvzg=369) 321 K/CU MM 150-450 MEAN PLATELET VOLUME (BEAKER) (test cmyn=397) 8.9 fL 9.4-12.3 NUCLEATED RED BLOOD CELLS (BEAKER) (test 0 /100 WBC 0-0 ilae=585) NEUTROPHILS RELATIVE PERCENT (BEAKER) (test 67 % hdbc=374) LYMPHOCYTES RELATIVE PERCENT (BEAKER) (test 20 % dfxg=644) MONOCYTES RELATIVE PERCENT (BEAKER) (test 9 % plia=193) EOSINOPHILS RELATIVE PERCENT (BEAKER) (test 3 % ycmj=485) BASOPHILS RELATIVE PERCENT (BEAKER) (test 0 % hyap=164) NEUTROPHILS ABSOLUTE COUNT (BEAKER) (test 7.76 K/ L 1.56-6.13 muda=909) LYMPHOCYTES ABSOLUTE COUNT (BEAKER) (test 2.33 K/ L 1.18-3.74 fgoe=816) MONOCYTES ABSOLUTE COUNT (BEAKER) (test 1.01 K/ L 0.24-0.36 xwnc=333) EOSINOPHILS ABSOLUTE COUNT (BEAKER) (test 0.38 K/ L 0.04-0.36 heif=285) BASOPHILS ABSOLUTE COUNT (BEAKER) (test 0.04 K/ L 0.01-0.08 hbnn=805) IMMATURE GRANULOCYTES-RELATIVE PERCENT (BEAKER) 0 % 0-1 (test lpci=6356) RAD, CHEST, 1 VIEW, NON [id number] 04:39:00Reason for exam:-> pneumothoraxShould this be performed at the bedside?->YesFINAL REPORT CLINICAL INDICATION: Pneumothorax Comparison: 02/17/2019 at 1011 hours The cardiomediastinal contours are stable. Postsurgical changes are present in the right mid toupper lung. There is a stable right hydropneumothorax. Right chest tubes remain in place. Signed: Raciel Macias MDRroseannort Verified Date/Time: 02/18/2019 04:39:20 Reading Location: [address] Reading Room RAD, CHEST, 1 VIEW, NON [id number] 10:34:00Reason for exam:->post opIs the patient ?->NoShould this be performed at the bedside?->YesFINAL REPORT Chest, 1 view. History: Postop. Comparison: 02/17/2019. Impression: There is a grossly stable small right apicolateral pneumothorax. Two right-sided chest tubes are identified in place. The trachea is midline. There is no evidence for new large focal consolidation orsignificant pleural effusion. The cardiomediastinal silhouette is within normal limits. No acute osseous abnormalities identified. Signed: Saud Serrato MDReport Verified Date/Time: 02/17/2019 10:34:25 Reading Location : [facility] Reading Room [id number] 07:07:00 Test Item Value Reference Range Comments MAGNESIUM (BEAKER) (test 1.8 mg/dL 1.6-2.6 Specimen slightly hemolyzed dqru=912) [id number] 07:07:00 Test Item Value Reference Range Comments PHOSPHORUS (BEAKER) (test 3.7 mg/dL 2.3-4.7 Specimen slightly hemolyzed ueas=204) BASIC METABOLIC [id number] 07:07:00 Test Item Value Reference Range Comments SODIUM (BEAKER) (test 136 meq/L 136-145 nrfn=167) POTASSIUM (BEAKER) (test 4.0 meq/L 3.5-5.1 Specimen slightly zoki=470) hemolyzed CHLORIDE (BEAKER) (test 106 meq/L 98-107 pumw=335) CO2 (BEAKER) (test 24 meq/L 22-29 ohri=355) BLOOD UREA NITROGEN 12 mg/dL 7-21 (BEAKER) (test sgql=593) CREATININE (BEAKER) (test 0.65 mg/dL 0.57-1.25 Specimen slightly vbjc=418) hemolyzed GLUCOSE RANDOM (BEAKER) 98 mg/dL 70-105 (test gwzy=935) CALCIUM (BEAKER) (test 9.3 mg/dL 8.4-10.2 wutw=690) EGFR (BEAKER) (test 110 mL/min/1.73 sq m ESTIMATED GFR IS NOT ugjq=7185) ACCURATE CREATININE CLEARANCE IN PREDICTING GLOMERULAR FILTRATION RATE. ESTIMATED GFR IS NOT APPLICABLE FOR DIALYSIS PATIENTS. CBC (HEMOGRAM ONLY)2019-02-17 06:36:00 Test Item Value Reference Range Comments WHITE BLOOD CELL COUNT (BEAKER) (test qcyi=251) 8.6 K/ L 3.5-10.5 RED BLOOD CELL COUNT (BEAKER) (test acnk=228) 4.16 M/ L 3.93-5.22 HEMOGLOBIN (BEAKER) (test ywxf=676) 12.6 GM/DL 11.2-15.7 HEMATOCRIT (BEAKER) (test xtzf=851) 37.8 % 34.1-44.9 MEAN CORPUSCULAR VOLUME (BEAKER) (test xxpu=112) 90.9 fL 79.4-94.8 MEAN CORPUSCULAR HEMOGLOBIN (BEAKER) (test 30.3 pg 25.6-32.2 mxdi=562) MEAN CORPUSCULAR HEMOGLOBIN CONC (BEAKER) (test 33.3 GM/DL 32.2-35.5 dcks=309) RED CELL DISTRIBUTION WIDTH (BEAKER) (test 11.8 % 11.7-14.4 bcud=809) PLATELET COUNT (BEAKER) (test uxoz=654) 302 K/CU MM 150-450 MEAN PLATELET VOLUME (BEAKER) (test zpuo=874) 9.0 fL 9.4-12.3 NUCLEATED RED BLOOD CELLS (BEAKER) (test 0 /100 WBC 0-0 zgva=108) RAD, CHEST, 1 VIEW, NON [id number] 04:59:00Reason for exam:-> pneumothoraxShould this be performed at the bedside?->YesFINAL REPORT RAD, CHEST, 1 VIEW, NON DEPT INDICATION: pneumothorax COMPARISON: Prior day's exam FINDINGS: Portable frontal view of the chest. IMPRESSION: Lungs and pleura: Lungs are clear. No pleural effusion. Unchanged small right apical pneumothorax. No left pneumothorax.Heart and mediastinum: Stable contours. Additional findings: None. Signed: Destiny Cespedes MDReportVerified Date/Time: 02/17/2019 04:59:14 Reading Location: [address] Transitional Reading Room CT, CHEST, WITHOUT [id number] 02:53:00FINAL REPORT CLINICAL INDICATION: Shortness of breath, pneumothorax COMPARISON: None Multiple axial images of the chest were performed without IV contrast. This exam was performed according to our departmental dose- optimization program, which includes automated exposure control, adjustment of the mA and/or kV according to patient size and/or use of the iterative reconstructiontechnique. FINDINGS: Lung parenchyma: Punctate calcified granulomata in [...] armando. Skeleton: No acute abnormality. Limited images ofupper abdomen: No significant findings. IMPRESSION : Small right pneumothorax. A right chest tube is in place, with the distal portion in the major fissure. Small biapical bullae/blebs. Signed: Raciel Macias Verified Date/Time: 02/17/2019 02:53:00 Reading Location: [address] Reading Room PREGNANCY SCREEN, [id number] 23:45:00 Test Item Value Reference Range Comments TEST URINE (BEAKER) (test wxzl=020) Negative RAD, CHEST, 1 VIEW, NON [id number] 22:03:00Reason for exam:-> pneumothoraxShould this be performed at the bedside?->YesIs the patient ?->NoFINAL REPORT History: Pneumothorax. Comparison: None. Findings: A single view of the chest is submitted. There is a right apical pneumothorax with approximately 2.4 cm of lateral separation. A right-sided chest tube is in place. The proximal sidehole appears to be at the chondral margin. The cardiomediastinal contours are unremarkable. There is no focal consolidation, large pleural effusion or evidence of overt pulmonary edema. There is no acute bony abnormality. Signed: Raciel Macias Verified Date/Time: 02/16/2019 22:03:20 Reading Location: [address] Reading Room Electronically signed by: RACIEL MACIAS M.D. on 10:03 PM
[2019-03-14] MEDS ORDERED: NA CHLORIDE 0.9% 1,000 ML ONE ×2 (15:28→16:33)
[2019-03-14 15:33] LABS: Absolute Lymphocytes (CBC) 3.5 K/uL (0.7-4.9); Hematocrit 35.8 % (36.0-45.0); MPV 7.1 fL (7.6-11.3); RBC Red Blood Cell Count 4.07 M/uL (3.86-4.86)
[2019-03-14 15:36] LABS: Protime INR 1.17
[2019-03-14 15:46] LABS: Blood Morphology Comment NOT SEEN (NOT SEEN); Platelet Estimate INCR; Urine White Blood Cell Casts OK
[2019-03-14 15:58] LABS: ALT/SGPT 21 U/L (12-78); AST/SGOT 15 U/L (15-37); Albumin 4.4 g/dL (3.4-5.0); Alkaline Phosphatase 89 U/L (45-117); BUN Blood Urea Nitrogen 8 mg/dL (7-18); Bicarbonate 23 mmol/L (21-32); Bilirubin Direct 0.1 mg/dL (0-0.2); Bilirubin Total 0.4 mg/dL (0.2-1.0); Glucose Level 113 mg/dL (74-106); Potassium 3.8 mmol/L (3.5-5.1); Protein, Total 8.1 g/dL (6.4-8.2); Sodium Level 137 mmol/L (136-145)
[2019-03-14 16:19] LABS: Urine Blood TRACE (NEG); Urine Glucose NEGATIVE (NEG); Urine Protein NEGATIVE (NEG)
[2019-03-14] MEDS ORDERED: DIAZEPAM 5 MG TABLET ONE (16:33)
[2019-03-14 16:34] LABS: Barbiturates NEGATIVE (NEGATIVE); Benzodiazepines NEGATIVE (NEGATIVE); Cocaine NEGATIVE (NEGATIVE); METHAMPHETAM POSITIVE (NEGATIVE); Methadone NEGATIVE (NEGATIVE); Opiates NEGATIVE (NEGATIVE); Phencyclidine NEGATIVE (NEGATIVE); THC Cannibis POSITIVE (NEGATIVE)
--- NOTE | 2019-03-14 17:17 | RAD REPORT ---
EXAM DESCRIPTION: Landon Single View03/14/2019 4:36 pm CLINICAL HISTORY: Chest pain COMPARISON: February 16, 2019 FINDINGS: Postsurgical changes involve the right hemithorax. Right lateral upper hemithorax is luce nt. It is unclear if this is secondary to a pneumothorax, bleb or hypoaerated lungs. Further evaluati on with an unenhanced CT chest would be helpful Left lung appears clear. Heart is normal size
--- NOTE | 2019-03-14 17:44 | ER ---
Nurse's Notes [facility] Name: Jemima Parmar Age: 29 yrs Sex: Female : 1990 Arrival Date: 03/14/2019 Time: 14:18 Bed 3 Private MD: Diagnosis: Methamphetamine abuse and adverse effects;Dehydration Presentation: 03/14 14:18 Presenting complaint: Patient states: "im just having a really bad day, im not sleeping hj for couple of night now, havent been eating well" denies SI or homicidal; pr on triage is A\\T\\O x 3; per mom, "shes not acting right for a week now, she had a 2 year old that she forgets to feed and shes not going out of the house and not driving, not eating well and not taking a shower". Transition of care: patient was not received from another setting of care. Onset of symptoms was March 14, 2019. Risk Assessment: Do you want to hurt yourself or someone else? Patient reports no desire to harm self or others. Initial Sepsis Screen: Does the patient meet any 2 criteria? No. Patient's initial sepsis screen is negative. Does the patient have a suspected source of infection? No. Patient's initial sepsis screen is negative. Care prior to arrival: None. 14:18 Method Of Arrival: Ambulatory 14:18 Acuity: DEJON 2 hj Triage Assessment: 14:44 General: Appears in no apparent distress. comfortable, Behavior is cooperative, bp appropriate for age, anxious. Pain: Denies pain. EENT: No deficits noted. Neuro: Level of Consciousness is awake, alert, obeys commands, Oriented to person, place, time, situation, Appropriate for age Reports CONFUSION. Cardiovascular: No deficits noted. Respiratory: No deficits noted. GI: No signs and/or symptoms were reported involving the gastrointestinal system. : No signs and/or symptoms were reported regarding the genitourinary system. Derm: No deficits noted. Musculoskeletal: No deficits noted. Historical: - Allergies: 14:21 No Known Allergies; hj - PMHx: 14:21 placenta stuck in uterus, pt bleeding after delivery, given two blood transfusion; hj - PSHx: 14:21 lung collapsew surgery; hj - Immunization history:: Adult Immunizations up to date. - Social history:: Smoking status: Patient/guardian denies using tobacco. - Family history:: not pertinent. - Ebola Screening: : No symptoms or risks identified at this time. - Hospitalizations: : Patient was recently seen at. Screenin:45 Abuse screen: Denies threats or abuse. Denies injuries from another. Nutritional bp screening: No deficits noted. Tuberculosis screening: No symptoms or risk factors identified. Fall Risk None identified. Assessment: 14:45 General: SEE TRIAGE NOTE. bp 16:01 Reassessment: UOP OBTAINED AND SENT TO LAB. ALL CURRENT ORDERS COMPLETED, RESULTS bp PENDING. 17:10 Reassessment: Patient appears in no apparent distress at this time. Patient and/or rv family updated on plan of care and expected duration. Pain level reassessed. Patient is alert, oriented x 3, equal unlabored respirations, skin warm/dry/pink. 17:48 Reassessment: PT D/C HOME AMBULATORY WITH FAMILY, DX WITH METHAMPHETAMINE ABUSE. bp Vital Signs: 14:21 BP 133 / 93; Pulse 127; Resp 18; Temp 98.1(O); Pulse Ox 98% on R/A; Weight 56.7 kg; hj Height 5 ft. 8 in. (172.72 cm); Pain 0/10; 16:00 BP 123 / 91; Pulse 110; Resp 18; Pulse Ox 100% ; bp 16:30 BP 120 / 95; Pulse 106; Resp 15; Pulse Ox 100% ; rv 17:00 BP 116 / 91; Pulse 108; Resp 16; Pulse Ox 100% on R/A; rv 14:21 Body Mass Index 19.01 (56.70 kg, 172.72 cm) ED Course: 14:18 Patient arrived in ED. mr 14:21 Triage completed. hj 14:21 Arm band placed on right wrist. hj 14:30 Inserted saline lock: 22 gauge in right antecubital area, using aseptic technique. bp Blood collected. 14:41 Talat Hayden, RN is Primary Nurse. bp 14:43 [place] Lynne MD is Attending Physician. rn 14:45 Patient has correct armband on for positive identification. Placed in gown. Bed in low bp position. Call light in reach. Side rails up X2. Adult w/ patient. 16:36 XRAY Chest (1 view) In Process Unspecified. EDMS 17:21 Acetaminophen Sent. bp 17:21 Basic Metabolic Panel Sent. bp 17:49 No provider procedures requiring assistance completed. IV discontinued, intact, bp bleeding controlled, No redness/swelling at site. Pressure dressing applied. Administered Medications: 15:31 Drug: NS 0.9% 1000 ml Route: IV; Rate: 1000 ml; Site: right antecubital; bp 16:39 Follow up: IV Status: Completed infusion; IV Intake: 1000ml bp 16:39 Drug: NS 0.9% 1000 ml Route: IV; Rate: 1000 ml; Site: right antecubital; bp 16:39 Drug: Valium 5 mg Route: PO; bp 17:21 Follow up: Response: Anxiety decreased bp Intake: 16:39 IV: 1000ml; Total: 1000ml. bp Outcome: 17:43 Discharge ordered by MD. rn 17:49 Discharged to home ambulatory, with family. bp 17:49 Condition: stable 17:49 Discharge instructions given to patient, family, Instructed on discharge instructions, follow up and referral plans. Demonstrated understanding of instructions, follow-up care. 17:49 Patient left the ED. bp Signatures: Dispatcher [employer] LEOBARDOMT JacksonMichelle Roman, MD MD rn Joaquin, Henry, RN RN hj Peltier, Brian, RN RN bp Vicente, Ronaldo, RN RN rv Corrections: (The following items were deleted from the chart) 14:29 14:18 Presenting complaint: Patient states: "im just having a really bad day, im not hj sleeping for couple of night now, havent been eating well" denies SI or homicidal; per mom, "shes not acting right for a week now, she had a 2 year old that she forgets to feed and shes not going out of the house and not driving" hj
--- NOTE | 2019-03-14 17:44 | EDPHYS ---
Physician Documentation [facility] Name: Jemima Parmar Age: 29 yrs Sex: Female : 1990 Arrival Date: 03/14/2019 Time: 14:18 Bed 3 Private MD: ED Physician Berlin Lynne HPI: 03/14 15:33 This 29 yrs old Female presents to ER via Ambulatory with complaints of rn altered mental status. 15:33 The patient presents with agitation, confusion. rn 15:33 Onset: The symptoms/episode began/occurred 3 day(s) ago. Possible causes: unknown. rn Associated signs and symptoms: Pertinent positives: agitation, confusion. Current symptoms: In the emergency department the patient's symptoms have improved. The patient has experienced similar episodes in the past. Family reports was hospitalized with CV surgery for pneumothorax 3 weeks ago, since then just not acting right, hasn't been taking a lot of pain medication, no drug use, no ETOH. + hx of bipolar and depression, used to be on lithium and anti-depressant, but no longer takes. Patient reports is under a lot of stress and can't handle it. Family reports yesterday said "wanted to ", but denies current suicidal or homicidal thoughts. No previous attempts. Reports would not hurt herself. Family reports decreased interest, not leaving house, not eating, not taking proper care of 2 year old daughter. . Historical: - Allergies: 14:21 No Known Allergies; hj - PMHx: 14:21 placenta stuck in uterus, pt bleeding after delivery, given two blood transfusion; hj - PSHx: 14:21 lung collapsew surgery; hj - Immunization history:: Adult Immunizations up to date. - Social history:: Smoking status: Patient/guardian denies using tobacco. - Family history:: not pertinent. - Ebola Screening: : No symptoms or risks identified at this time. - Hospitalizations: : Patient was recently seen at. ROS: 15:33 Constitutional: Negative for fever, chills, and weight loss, Eyes: Negative for injury, rn pain, redness, and discharge, Neck: Negative for injury, pain, and swelling, Cardiovascular: Negative for chest pain, palpitations, and edema, Respiratory: Negative for shortness of breath, cough, wheezing, and pleuritic chest pain, Abdomen/GI: Negative for abdominal pain, nausea, vomiting, diarrhea, and constipation, Back: Negative for injury and pain, : Negative for injury, bleeding, discharge, and swelling, MS/Extremity: Negative for injury and deformity, Skin: Negative for injury, rash, and discoloration, Neuro: + generalized weakness, no headache or focal neurological problem Psych: Negative for suicide ideation, homicidal ideation, and hallucinations. Exam: 15:33 Constitutional: Very thin girl, no acute distress, sleeping Head/Face: Normocephalic, rn atraumatic. Eyes: Pupils equal round and reactive to light, extra-ocular motions intact. Lids and lashes normal. Conjunctiva and sclera are non-icteric and not injected. Cornea within normal limits. Periorbital areas with no swelling, redness, or edema. ENT: dry MM Neck: Trachea midline, no thyromegaly or masses palpated, and no cervical lymphadenopathy. Supple, full range of motion without nuchal rigidity, or vertebral point tenderness. No Meningismus. Cardiovascular: Regular rate and rhythm with a normal S1 and S2. No gallops, murmurs, or rubs. Normal PMI, no JVD. No pulse deficits. Respiratory: Lungs have equal breath sounds bilaterally, clear to auscultation. No increased work of breathing, no retractions or nasal flaring. Speaking full sentences Abdomen/GI: Soft, non-tender, with normal bowel sounds. No distension or tympany. No guarding or rebound. No evidence of tenderness throughout. MS/ Extremity: Pulses equal, no cyanosis. Neurovascular intact. Full, normal range of motion. Equal circumference. Neuro: Awake and alert, GCS 15, oriented to person, place, time, and situation. Cranial nerves II-XII grossly intact. Motor strength 5/5 in all extremities. Sensory grossly intact. Cerebellar exam normal Vital Signs: 14:21 BP 133 / 93; Pulse 127; Resp 18; Temp 98.1(O); Pulse Ox 98% on R/A; Weight 56.7 kg; hj Height 5 ft. 8 in. (172.72 cm); Pain 0/10; 16:00 BP 123 / 91; Pulse 110; Resp 18; Pulse Ox 100% ; bp 16:30 BP 120 / 95; Pulse 106; Resp 15; Pulse Ox 100% ; rv 17:00 BP 116 / 91; Pulse 108; Resp 16; Pulse Ox 100% on R/A; rv 14:21 Body Mass Index 19.01 (56.70 kg, 172.72 cm) hj MDM: 14:43 Patient medically screened. rn 17:23 ED course: Patient + for meth and marijuana, spoke with mother, states she used to use rn meth but has been clean, definitely can explain her agitation/restlessness/decreased sleep/weight loss/decreased appetite. . 17:41 Differential Diagnosis: hypoglycemia, overdose, UTI, volume depletion. Differential rn Diagnosis: electrolyte abnormality. Data reviewed: vital signs, nurses notes. Data reviewed: lab test result(s), EKG, radiologic studies, and as a result, I will discharge patient. Counseling: I had a detailed discussion with the patient and/or guardian regarding: the historical points, exam findings, and any diagnostic results supporting the discharge/admit diagnosis, lab results, radiology results, the need for outpatient follow up, to return to the emergency department if symptoms worsen or persist or if there are any questions or concerns that arise at home. Response to treatment: the patient's symptoms have mildly improved after treatment, and as a result, I will discharge patient. ED course: Patient's mother states patient admits to meth use, has previously used meth, told her we could not admit just for drug use/abuse, and psychiatric transfer likely not going to happen due to drug use and currently denies suicidal/homicidal. . 03/14 15:03 Order name: Acetaminophen rn 03/14 15:03 Order name: Basic Metabolic Panel rn 03/14 15:03 Order name: CBC with Diff; Complete Time: 16:13 rn 03/14 15:03 Order name: ETOH Level; Complete Time: 16:13 rn 03/14 15:03 Order name: Hepatic Function; Complete Time: 16:13 rn 03/14 15:03 Order name: PT-INR; Complete Time: 16:13 rn 03/14 15:03 Order name: Ptt, Activated; Complete Time: 16:13 rn 03/14 15:03 Order name: Salicylate; Complete Time: 16:13 rn 03/14 15:03 Order name: Urine Drug Screen; Complete Time: 17:18 rn 03/14 15:03 Order name: Acetaminophen Level; Complete Time: 16:13 EDMI 03/14 15:03 Order name: Basic Metabolic Panel; Complete Time: 16:13 [facility] 03/14 15:38 Order name: CBC Smear Scan; Complete Time: 16:13 [facility] 03/14 16:17 Order name: Urine Dipstick--Ancillary (enter results); Complete Time: 16:29 03/14 16:17 Order name: Urine --Ancillary (enter results); Complete Time: 16:29 03/14 15:03 Order name: Urine Test (obtain specimen); Complete Time: 16:00 rn 03/14 15:03 Order name: EKG; Complete Time: 15:04 rn 03/14 15:03 Order name: EKG - Nurse/Tech; Complete Time: 15:31 rn 03/14 15:03 Order name: IV Saline Lock; Complete Time: 15: rn 03/14 15:03 Order name: Labs collected and sent; Complete Time: 15:31 rn 03/14 15:03 Order name: Urine Dipstick-Ancillary (obtain specimen); Complete Time: 16:00 rn 03/14 16:14 Order name: XRAY Chest (1 view); Complete Time: 17:19 rn Administered Medications: 15:31 Drug: NS 0.9% 1000 ml Route: IV; Rate: 1000 ml; Site: right antecubital; bp 16:39 Follow up: IV Status: Completed infusion; IV Intake: 1000ml bp 16:39 Drug: NS 0.9% 1000 ml Route: IV; Rate: 1000 ml; Site: right antecubital; bp 16:39 Drug: Valium 5 mg Route: PO; bp 17:21 Follow up: Response: Anxiety decreased bp Disposition: 03/14/19 17:43 Discharged to Home. Impression: Methamphetamine abuse and adverse effects, Dehydration. - Condition is Stable. - Discharge Instructions: Dehydration, Adult, Stimulant Use Disorder-Methamphetamines. - Medication Reconciliation Form, Thank You Letter, Antibiotic Education, Prescription Opioid Use form. - Follow up: Private Physician; When: As needed; Reason: Recheck today's complaints, Re-evaluation by your physician. - Problem is new. - Symptoms have improved. Signatures: Dispatcher [employer] EDMS Berlin Lynne MD MD rn Joaquin, Henry, RN RN hj Peltier, Brian, RN RN bp Corrections: (The following items were deleted from the chart) 17:49 17:43 03/14/2019 17:43 Discharged to Home. Impression: Methamphetamine abuse and bp adverse effects; Dehydration. Condition is Stable. Forms are Medication Reconciliation Form, Thank You Letter, Antibiotic Education, Prescription Opioid Use. Follow up: Private Physician; When: As needed; Reason: Recheck today's complaints, Re-evaluation by your physician. Problem is new. Symptoms have improved. rn
[2019-03-14 18:01] VITALS: TEMP 98.1
[2019-03-14 18:03] VITALS: O2SAT 100
[2019-03-14 18:05] VITALS: BP 116/91
--- NOTE | 2019-03-16 07:47 | EKG ---
Test Date: 2019-03-14 Test Time: 15:12:16 Nursing Teacher: ASHLEY MEASUREMENT RESULTS: Intervals: Rate: 107 ME: 180 QRSD: 104 QT: 346 QTc: 461 Allison: P: 74 ME: 180 QRS: 85 T: 72 INTERPRETIVE STATEMENTS: Sinus tachycardia Incomplete right bundle branch block Borderline ECG Compared to ECG 02/09/2019 21:27:28 Incomplete right bundle-branch block now present Sinus rhythm no longer present Electronically Signed On 03-16-19 07:45:28 CDT by Juancarlos Murray
== END 2019-03-14 17:49 | disposition home or self-care (01) ==
LOC: ER 14:15
DX: E86.0 Dehydration (principal); F15.10 Other stimulant abuse, uncomplicated; T43.625A Adverse effect of amphetamines, initial encounter; F31.9 Bipolar disorder, unspecified
CPT/HCPCS: 93005; 85025; 80048; 36415; 80320; 80329 ×2; 81025; 85610; 80076; 80307 ×8; 85730; 81003; 71045; 96360; 99284; J7030 ×2

== ENCOUNTER 2020-05-17 14:45 | Emergency (ER) | payer OTHER ==
--- NOTE | 2020-05-17 16:19 | RAD REPORT ---
EXAM DESCRIPTION: RAD - Chest Single View - 05/17/2020 4:00 pm CLINICAL HISTORY: Cough;Chest pain COMPARISON: Portable March 2019 TECHNIQUE: AP portable chest image was obtained 05/17/2020 4:00 pm . FINDINGS: Lungs are clear. Granulomatous calcifications are present. Suture line is seen in the late ral mid right chest. Trachea is midline. Heart and vasculature are normal. No measurable pleural effu laurle and no pneumothorax. No acute bony abnormality seen. No acute aortic findings suspected. IMPRESSION: No acute cardiopulmonary process. No significant change from comparison.
--- NOTE | 2020-05-17 16:23 | EDPHYS ---
Physician Documentation [facility] Name: Jemima Parmar Age: 30 yrs Sex: Female : 1990 Arrival Date: 05/17/2020 Time: 14:49 Bed 30 Private MD: ED Physician Berlin Lynne HPI: 05/17 15:46 This 30 yrs old Female presents to ER via Ambulatory with complaints of Side rn Pain, R/O COVID. 15:46 The patient or guardian reports cough. Onset: The symptoms/episode began/occurred 3 rn day(s) ago. Severity of symptoms: At their worst the symptoms were very mild, in the emergency department the symptoms are unchanged. Modifying factors: The symptoms are alleviated by nothing, the symptoms are aggravated by nothing. The patient has experienced a previous episode. Reports came in today to get COVID testing, has slight cough and right chest tightness. Has had spontaneous pneumothorax in past. No fever. NO sick contacts. . 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 - Social history:: Smoking status: Patient reports the use of cigarette tobacco products, smokes one-half pack cigarettes per day. - Family history:: not pertinent. - Hospitalizations: : No recent hospitalization is reported. ROS: 15:46 Constitutional: Negative for fever, chills, and weight loss, Eyes: Negative for injury, rn pain, redness, and discharge, Neck: Negative for injury, pain, and swelling, Cardiovascular: Negative for palpitations, and edema, Respiratory: Negative for shortness of breath, wheezing Abdomen/GI: Negative for abdominal pain, nausea, vomiting, diarrhea, and constipation, MS/Extremity: Negative for injury and deformity, Skin: Negative for injury, rash, and discoloration, Neuro: Negative for headache, weakness, numbness, tingling, and seizure. Exam: 15:46 Constitutional: This is a well developed, well nourished patient who is awake, alert, rn and in no acute distress. Head/Face: Normocephalic, atraumatic. Eyes: Pupils equal round. Periorbital areas normal without swelling. Cardiovascular: Regular rate and rhythm. Respiratory: No increased work of breathing, no retractions or nasal flaring. Skin: Warm, no cyanosis MS/ Extremity: No cyanosis. Neuro: Awake and alert, GCS 15, ambulatory with normal gait. Vital Signs: 15:07 BP 107 / 69; Pulse 79; Resp 17; Temp 98.2; Pulse Ox 100% ; Weight 55.79 kg; Height 5 ll1 ft. 8 in. (172.72 cm); Pain 5/10; 15:07 Body Mass Index 18.70 (55.79 kg, 172.72 cm) ll1 MDM: 15:32 Patient medically screened. rn 16:22 Differential Diagnosis: Viral Syndrome Pneumonia Other pneumothorax. Data reviewed: rn vital signs, nurses notes, radiologic studies, and as a result, I will discharge patient. Counseling: I had a detailed discussion with the patient and/or guardian regarding: the historical points, exam findings, and any diagnostic results supporting the discharge/admit diagnosis, radiology results, the need for outpatient follow up, to return to the emergency department if symptoms worsen or persist or if there are any questions or concerns that arise at home. Special discussion: I discussed with the patient/guardian in detail that at this point there is no indication for admission to the hospital. It is understood, however, that if the symptoms persist or worsen the patient needs to return immediately for re-evaluation. 05/17 15:36 Order name: ASAF-19 rn 05/17 15:36 Order name: XRAY Chest (1 view); Complete Time: 16:22 rn Administered Medications: No medications were administered Disposition: 05/17/20 16:23 Discharged to Home. Impression: Cough, Chest pain, unspecified. - Condition is Stable. - Discharge Instructions: Nonspecific Chest Pain, Chest Wall Pain. - Medication Reconciliation Form, Thank You Letter, Antibiotic Education, Prescription Opioid Use form. - Follow up: Private Physician; When: As needed; Reason: Recheck today's complaints, Re-evaluation by your physician. - Problem is new. - Symptoms are unchanged. Signatures: Dispatcher [employer] EDTory Lozoya RN RN iw Nieto, Roman, MD MD rn Lewis, Lynsay, RN RN ll1 Corrections: (The following items were deleted from the chart) 16:29 16:23 05/17/2020 16:23 Discharged to Home. Impression: Cough; Chest pain, unspecified. iw Condition is Stable. Forms are Medication Reconciliation Form, Thank You Letter, Antibiotic Education, Prescription Opioid Use. Follow up: Private Physician; When: As needed; Reason: Recheck today's complaints, Re-evaluation by your physician. Problem is new. Symptoms are unchanged. rn
--- NOTE | 2020-05-17 16:23 | ER ---
Nurse's Notes [facility] Name: Jemima Parmar Age: 30 yrs Sex: Female : 1990 Arrival Date: 05/17/2020 Time: 14:49 Bed 30 Private MD: Diagnosis: Cough;Chest pain, unspecified Presentation: 05/17 15:07 Chief complaint: Patient states: Nasal congestion, slight cough for 3 days. No fever. ll1 Right lateral CP for 1 week. Had chest tube placed there 1 year ago for collapsed lung. Coronavirus screen: Client denies travel out of the [place] in the last 14 days. congestion, cough unrelated to allergies, headache, sore throat, Client presents with at least one sign or symptom that may indicate coronavirus-19. Standard/surgical mask placed on the client. Ebola Screen: Patient denies travel to an Ebola-affected area in the 21 days before illness onset. Initial Sepsis Screen: Does the patient meet any 2 criteria? No. Patient's initial sepsis screen is negative. Does the patient have a suspected source of infection? Yes: Productive cough/pneumonia. Risk Assessment: Do you want to hurt yourself or someone else? Patient reports no desire to harm self or others. Onset of symptoms was May 14, 2020. 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 - Social history:: Smoking status: Patient reports the use of cigarette tobacco products, smokes one-half pack cigarettes per day. - Family history:: not pertinent. - Hospitalizations: : No recent hospitalization is reported. Screenin:41 Abuse screen: Denies threats or abuse. Denies injuries from another. Nutritional iw screening: No deficits noted. Tuberculosis screening: No symptoms or risk factors identified. Fall Risk None identified. Assessment: 15:40 General: Appears in no apparent distress. Behavior is calm, cooperative. Pain: iw Complains of pain in chest. Neuro: Level of Consciousness is awake, alert, obeys commands, Oriented to person, place, time, situation, Moves all extremities. Full function. Cardiovascular: Patient's skin is warm and dry. Derm: Skin is intact, is healthy with good turgor. Vital Signs: 15:07 BP 107 / 69; Pulse 79; Resp 17; Temp 98.2; Pulse Ox 100% ; Weight 55.79 kg; Height 5 ll1 ft. 8 in. (172.72 cm); Pain 5/10; 15:07 Body Mass Index 18.70 (55.79 kg, 172.72 cm) ll1 ED Course: 14:49 Patient arrived in ED. ag5 15:10 Triage completed. ll1 15:10 Arm band placed on. ll1 15:32 Berlin Lynne MD is Attending Physician. rn 15:37 Tory Bernardo RN is Primary Nurse. iw 15:40 Patient has correct armband on for positive identification. iw 16:00 XRAY Chest (1 view) In Process Unspecified. EDMS 16:28 No provider procedures requiring assistance completed. Patient did not have IV access iw during this emergency room visit. Administered Medications: No medications were administered Outcome: 16:23 Discharge ordered by . rn 16:28 Discharged to home ambulatory, with family. iw 16:28 Condition: good 16:28 Discharge instructions given to patient, Instructed on discharge instructions, follow up and referral plans. Demonstrated understanding of instructions, follow-up care. 16:29 Patient left the ED. iw Addendum: 05/20/2020 10:52 Addendum: COVID-19 Result: Negative result given to RN to notify pt. Contacted by: . shelly valdivia Notified pt of negative COVID 19 swab results. Pt advised that even with a negative test result they should remain in isolation until symptom free for 3 days without medication. Pt also advised to return to the ED for worsening symptoms. Signatures: Dispatcher [employer] EDMS Tory Bernardo, RN RN Berlin Lynne MD MD rn Botello, Elizabeth eb Gaskin, Ajare ag5 Manuel Mcintyre RN RN 1
[2020-05-17 16:45] VITALS: BP 107/69; TEMP 98.2; O2SAT 100
--- OUTSIDE RECORDS SUMMARY | 2020-05-19 15:49 | XMS REPORT | Clinical Summary ---
:1990 Author Organization [facility] Address [address] [place] [address] Care Team Providers Name Role Phone Pcp, No Primary Care Provider Unavailable Allergies No Known Allergies Medications No known medications Active Problems Problem Noted Date Pneumothorax 02/16/2019 Family History Medical History Relation Name Comments Hypertension Father Colon cancer Maternal Grandmother Lung cancer Maternal Grandmother Hypertension Mother Relation Name Status Comments Father Maternal Grandmother Mother Social History Tobacco Use Types Packs/Day Years Used Date Former Smoker Cigarettes 0.5 10 Quit: 01/11/20 19 Smokeless Tobacco: Never Used Comments: e-cigs and vape user when quit ting cigarettes Alcohol Use Drinks/Week oz/Week Comments No Alcohol Habits Answer Date Recorded How often do you have a drink containing alcohol? Never 02/16/2019 How many drinks containing alcohol do you have on a typical Not asked day when you are drinking? How often do you have six or more drinks on one occasion? No t asked Sex Assigned at Date Recorded Not on file Job Start Date Occupation Industry Not on file Not on file Not on file Travel History Travel Start Travel End No recent travel history available. Last Filed Vital Signs Not on file Plan of Treatment Not on file Results Not on fileafter 05/18/2019 Insurance Payer Benefit Plan / Subscriber ID Type Phone Address Group MEDICAID - MEDICAID [facility] xxxxxxxxx Medicaid Contracted [employer] CARE PLAN Advance Directives For more information, please contact:[place] [address] [place], [place] [phone] Code Status Date Activated Date Inactivated Comments Full Code 02/16/2019 10:02 PM 02/20/2019 5:30 PM This code status was determined by: Patient
--- OUTSIDE RECORDS SUMMARY | 2020-05-19 15:49 | XMS REPORT | Continuity of Care Document ---
:1990 Author Organization [facility] t Address [address] [place] [address] Care Team Providers Name Role Phone Pcp, No Primary Care Physician Unavailable Visit, Ang-Rmchp Nurse Attending Clinician Unavailable Doctor Unassigned, Name Attending Clinician Unavailable Sim Cary Attending Clinician IRMA ARAUJO Attending Clinician Unavailable IRMA ARAUJO Admitting Clinician Unavailable Problems Condition Condition Condition Status Onset Resolution Last Treating Co mments Source Name Details Category Date Date Treatment Clinician Date Pneumothor Pneumothor Disease Active [facility] Allergies, Adverse Reactions, Alerts This patient has no known allergies or adverse reactions. Family History Family Member Diagnosis Comments Start Date Stop Date Source Natural father Hypertension [facility] Maternal grandmother Colon cancer [facility] Maternal grandmother Lung cancer [facility] Natural mother Hypertension [facility] Social History Social Habit Start Date Stop Date Quantity Comments Source History SDOH [facility] - Alcohol Std Drinks [facility] Center History SDOH [facility] - Alcohol Binge Medical [facility] ter Sex Assigned At [facility] Cigarettes smoked 2019-02-17 2019-02-17 [facility] - current (pack per 00:00:00 00:00:00 Medical Center day) - Reported Cigarette 2019-02-17 2019-02-[address] [facility] - pack-years 00:00:00 00:00:00 [facility] History SDOH 2019-02-16 2019-02-[address] [facility] - Alcohol Frequency 00:00:00 00:00:00 [facility] Tobacco Comment 2019-02-16 2019-02-16 e-cigs and vape [facility] - 00:00:00 00:00:00 [facility] cigarettes History of tobacco 2019-01-10 Current smoker [facility] - use 00:00:00 [facility] Smoking Status Start Date Stop Date Source Former smoker 2019-02-17 00:00:00 2019-02-17 00:00:[address] [facility] Medications This patient has no known medications. Procedures This patient has no known procedures. Encounters Start End Encounter Admission Attending Care Care Encounter Source Date/Time Date/Time Type Type Clinicians Facility Department ID 2020-05-18 2020-05-18 Nurse Visit, [facility] [id number] 18 13:23:28 13:38:12 Visit Scott PIPELINE SYSTEMS OPERATOR [id number] Nurse [facility] [id number] MATERNAL [id number] & CHILD 107 [facility] 2020-05-18 2020-05-18 Orders Doctor CITLALY [id number] 00:00:00 00:00:00 Only Unassigned, FANNIE [id number] [place] [facility] [id number] [id number] 2019-10-06 2019-10-06 Office [place], [facility] [id number] 15:32:19 16:10:25 Visit Jennifer Montemayor PIPELINE SYSTEMS OPERATOR [id number] [facility] [id number] MATERNAL [id number] & CHILD 107 [facility] 2019-10-06 2019-10-06 Orders Doctor CITLALY [id number] 00:00:00 00:00:00 Only Unassigned, FANNIE [id number] [place] [facility] [id number] [id number] Results Test Description Test Time Test Comments Results Result [facility] e Comments TISSUE EXAM 2019-02-09 Surgical Pathology 5 Report 18:18:00 Case: [id number] Authorizing Provider: Luan Araujo Jr., Collected: 02/17/2019 0852 Ordering Location: [address] Received: 02/17/2019 0943 Pathologist: Jing Ch [...] REACTIVE CHANGECC/pl Signing Pathologist Direct Phone Line: [phone] ally signed by Jing Ch MD on 02/23/2019 at 6:18 PMThe overall findings are compatible with history of spontaneous pneumothorax. [place]. [id number] x2, [id number] and postop diagnosis: Pneumothorax, rightA. 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 No gross lesions are identified. Home Performance Consultant sections of the area of adhesion with [...] is negative for malignancy. RAD, CHEST, 1 2019-02-09 Reason for FINAL REPORT PATIENT VIEW, NON DEPT 2 exam:->CT ID: [id number] Exam: 13:07:00 removalShould this RAD, CHEST, 1 VIEW, be performed at NON DEPTDate: the bedside?->Yes 02/20/2019 1:05 PM Indication: Chest tube removal [...] layering right pleural effusion. Signed: Radha Cardozo MDReport Verified Date/Time: 02/20/2019 13:07:10 Reading Location: [facility] Transitional Reading Room , CHEST, 1 2019-02-09 Reason for FINAL REPORT PATIENT VIEW, NON DEPT 2 exam:->pneumothora ID: [id number] Chest 05:26:00 xShould this be one view. Clinical performed at the history: pneumothorax bedside?->Yes Comparison: Chest radiograph 02/19/2019 Technique: A single frontal view of the chest was obtained. Findings:There are right-sided chest tubes unchanged.The cardiomediastinal contours are stable. There are post surgical changes in the right hemithorax with small loculated pleural fluid. There is no pneumothorax. Signed: Silver Novakort Verified Date/Time: 02/20/2019 05:26:31 , CHEST, 1 2019-02-09 Reason for FINAL REPORT PATIENT VIEW, NON DEPT 1 exam:->pneomothora ID: [id number] 23:15:00 xShould this be EXAMINATION: AP performed at the PORTABLE CHEST bedside?->Yes RADIOGRAPH CLINICAL INDICATION: Pneumothorax. Chest tubes. IMPRESSION: Compared with 02/19/2019, 1215 hours. Right-sided chest tubes are again noted, similar in position. Asymmetric right lung parenchymal and pleural opacities are similar to previous. A small right-sided pneumothorax is also again suspected, stable. Left lung remains relatively clear. Cardiac and mediastinal contours are unchanged. Signed: Dereje Elliott Verified Date/Time: 02/19/2019 23:15:02 Reading Location: [address] Reading Room , CHEST, 1 2019-02-09 Reason for FINAL REPORT PATIENT VIEW, NON DEPT 1 exam:->CT to water ID: [id number] 13:31:00 sealShould this be TECHNIQUE: Frontal performed at the chest radiograph dated bedside?->Yes 02/19/2019. CLINICAL HISTORY: CT to water seal COMPARISON [...] MDReport Verified Date/Time: 02/19/2019 13:31:14 Reading Location: [facility] Reading Room ESIUM 2019-02-19 06:28:00 Test Item Value Reference Range Interpretation Comme nts MAGNESIUM (BEAKER) (test code = 627) 1.7 mg/dL 1.6-2.6 BASIC METABOLIC [id number] 06:28:00 Test Item Value Reference Range Interpretation Comments SODIUM (BEAKER) 136 meq/L 136-145 (test code = 381) POTASSIUM (BEAKER) 4.0 meq/L 3.5-5.1 (test code = 379) CHLORIDE (BEAKER) 102 meq/L 98-107 (test code = 382) CO2 (BEAKER) (test 26 meq/L 22-29 code = 355) BLOOD UREA NITROGEN 5 mg/dL 7-21 L (BEAKER) (test code = 354) CREATININE (BEAKER) 0.64 mg/dL 0.57-1.25 (test code = 358) GLUCOSE RANDOM 129 mg/dL 70-105 H (BEAKER) (test code = 652) CALCIUM (BEAKER) 8.8 mg/dL 8.4-10.2 (test code = 697) EGFR (BEAKER) (test 112 mL/min/1.73 ESTIM ATED GFR IS code = 1092) sq m NOT ACCURATE CREATININE CLEARANCE IN PREDICTING GLOMERULAR FILTRATION RATE . ESTIMATED GFR I S NOT APPLICABLE FOR DIALYSIS PATIEN TS. CBC W/PLT COUNT & AUTO [id number] 05:42:00 Test Item Value Reference Range Interpretation Comments WHITE BLOOD CELL COUNT (BEAKER) 10.3 K/ L 3.5-10.5 (test code = 775) RED BLOOD CELL COUNT (BEAKER) 3.06 M/ L 3.93-5.22 L (test code = 761) HEMOGLOBIN (BEAKER) (test code = 9.3 GM/DL 11.2-15.7 L 410) HEMATOCRIT (BEAKER) (test code = 28.7 % 34.1-44.9 L 411) MEAN CORPUSCULAR VOLUME (BEAKER) 93.8 fL 79.4-94.8 (test code = 753) MEAN CORPUSCULAR HEMOGLOBIN 30.4 pg 25.6-32.2 (BEAKER) (test code = 751) MEAN CORPUSCULAR HEMOGLOBIN CONC 32.4 GM/DL 32.2-35.5 (BEAKER) (test code = 752) RED CELL DISTRIBUTION WIDTH 11.9 % 11.7-14.4 (BEAKER) (test code = 412) PLATELET COUNT (BEAKER) (test 283 K/CU MM 150-450 code = 756) MEAN PLATELET VOLUME (BEAKER) 9.2 fL 9.4-12.3 L (test code = 754) NUCLEATED RED BLOOD CELLS 0 /100 WBC 0-0 (BEAKER) (test code = 413) NEUTROPHILS RELATIVE PERCENT 59 % (BEAKER) (test code = 429) LYMPHOCYTES RELATIVE PERCENT 26 % (BEAKER) (test code = 430) MONOCYTES RELATIVE PERCENT 9 % (BEAKER) (test code = 431) EOSINOPHILS RELATIVE PERCENT 5 % (BEAKER) (test code = 432) BASOPHILS RELATIVE PERCENT 0 % (BEAKER) (test code = 437) NEUTROPHILS ABSOLUTE COUNT 6.13 K/ L 1.56-6.13 (BEAKER) (test code = 670) LYMPHOCYTES ABSOLUTE COUNT 2.71 K/ L 1.18-3.74 (BEAKER) (test code = 414) MONOCYTES ABSOLUTE COUNT (BEAKER) 0.90 K/ L 0.24-0.36 H (test code = 415) EOSINOPHILS ABSOLUTE COUNT 0.50 K/ L 0.04-0.36 H (BEAKER) (test code = 416) BASOPHILS ABSOLUTE COUNT (BEAKER) 0.04 K/ L 0.01-0.08 (test code = 417) IMMATURE GRANULOCYTES-RELATIVE 1 % 0-1 PERCENT (BEAKER) (test code = 2801) RAD, CHEST, 1 VIEW, NON [id number] 04:23:00Reason for exam:- >pneumothoraxShould this be performed at the bedside?->YesFINAL REPORT EXAMINATION: AP PORTABLE CHEST RADIOGRAPH CLINICAL INDICATION: Pneumothorax IMPRESSION: Compared with 02/18/2019. Right-sided chest tubes are grossly stable in position. The asymmetric right lung opacities, right pleural effusion and small right-sided pneumothorax are similar to previous. No definite evidence of new lung consolidation. Cardiac and mediastinal contours are unchanged. Signed: Dereje Elliott MDRroseannort Verified Date/Time: 02/19/2019 04:23:03 Reading Location: [address] Reading Room CBC W/PLT COUNT & AUTO [id number] 13:24:00 Test Item Value Reference Range Interpretation Comments WHITE BLOOD CELL COUNT (BEAKER) 11.6 K/ L 3.5-10.5 H (test code = 775) RED BLOOD CELL COUNT (BEAKER) 3.40 M/ L 3.93-5.22 L (test code = 761) HEMOGLOBIN (BEAKER) (test code = 10.4 GM/DL 11.2-15.7 L 410) HEMATOCRIT (BEAKER) (test code = 31.3 % 34.1-44.9 L 411) MEAN CORPUSCULAR VOLUME (BEAKER) 92.1 fL 79.4-94.8 (test code = 753) MEAN CORPUSCULAR HEMOGLOBIN 30.6 pg 25.6-32.2 (BEAKER) (test code = 751) MEAN CORPUSCULAR HEMOGLOBIN CONC 33.2 GM/DL 32.2-35.5 (BEAKER) (test code = 752) RED CELL DISTRIBUTION WIDTH 11.9 % 11.7-14.4 (BEAKER) (test code = 412) PLATELET COUNT (BEAKER) (test 321 K/CU MM 150-450 code = 756) MEAN PLATELET VOLUME (BEAKER) 8.9 fL 9.4-12.3 L (test code = 754) NUCLEATED RED BLOOD CELLS 0 /100 WBC 0-0 (BEAKER) (test code = 413) NEUTROPHILS RELATIVE PERCENT 67 % (BEAKER) (test code = 429) LYMPHOCYTES RELATIVE PERCENT 20 % (BEAKER) (test code = 430) MONOCYTES RELATIVE PERCENT 9 % (BEAKER) (test code = 431) EOSINOPHILS RELATIVE PERCENT 3 % (BEAKER) (test code = 432) BASOPHILS RELATIVE PERCENT 0 % (BEAKER) (test code = 437) NEUTROPHILS ABSOLUTE COUNT 7.76 K/ L 1.56-6.13 H (BEAKER) (test code = 670) LYMPHOCYTES ABSOLUTE COUNT 2.33 K/ L 1.18-3.74 (BEAKER) (test code = 414) MONOCYTES ABSOLUTE COUNT (BEAKER) 1.01 K/ L 0.24-0.36 H (test code = 415) EOSINOPHILS ABSOLUTE COUNT 0.38 K/ L 0.04-0.36 H (BEAKER) (test code = 416) BASOPHILS ABSOLUTE COUNT (BEAKER) 0.04 K/ L 0.01-0.08 (test code = 417) IMMATURE GRANULOCYTES-RELATIVE 0 % 0-1 PERCENT (BEAKER) (test code = 2801) RAD, CHEST, 1 VIEW, NON [id number] 04:39:00Reason for exam:- >pneumothoraxShould this be performed at the bedside?->YesFINAL REPORT CLINICAL INDICATION: Pneumothorax Comparison: 02/17/2019 at 1011 hours The cardiomediastinal contours are stable. Postsurgical changes are present in the right mid toupper lung. There is a stable right hydropneumothorax. Right chest tubes remain in place. Signed: Raciel Macias MDReport Verified Date/Time: 02/18/2019 04:39:20 Reading Location: [address] Reading Room RAD, CHEST, 1 VIEW, NON [id number] 10:34:00Reason for exam:->post opIs the patient ?->NoShould [...] Serrato MDReport Verified Date/Time: 02/17/2019 10:34:25 Reading Location: [facility] Reading Room [id number] 07:07:00 Test Item Value Reference Range Interpretation Comments MAGNESIUM (BEAKER) 1.8 mg/dL 1.6-2.6 Specimen slightly (test code = 627) hemolyzed [id number] 07:07:00 Test Item Value Reference Range Interpretation Comments PHOSPHORUS (BEAKER) 3.7 mg/dL 2.3-4.7 Specimen slightly (test code = 604) hemolyzed BASIC METABOLIC [id number] 07:07:00 Test Item Value Reference Range Interpretation Comments SODIUM (BEAKER) 136 meq/L 136-145 (test code = 381) POTASSIUM (BEAKER) 4.0 meq/L 3.5-5.1 Specimen slightly (test code = 379) hemolyzed CHLORIDE (BEAKER) 106 meq/L 98-107 (test code = 382) CO2 (BEAKER) (test 24 meq/L 22-29 code = 355) BLOOD UREA NITROGEN 12 mg/dL 7-21 (BEAKER) (test code = 354) CREATININE (BEAKER) 0.65 mg/dL 0.57-1.25 Specimen slightly (test code = 358) hemolyzed GLUCOSE RANDOM 98 mg/dL 70-105 (BEAKER) (test code = 652) CALCIUM (BEAKER) 9.3 mg/dL 8.4-10.2 (test code = 697) EGFR (BEAKER) (test 110 mL/min/1.73 ESTIM ATED GFR IS code = 1092) sq m NOT ACCURATE CREATININE CLEARANCE IN PREDICTING GLOMERULAR FILTRATION RATE . ESTIMATED GFR I S NOT APPLICABLE FOR DIALYSIS PATIEN TS. CBC (HEMOGRAM ONLY)2019-02-17 06:36:00 Test Item Value Reference Range Interpretation Comments WHITE BLOOD CELL COUNT (BEAKER) 8.6 K/ L 3.5-10.5 (test code = 775) RED BLOOD CELL COUNT (BEAKER) 4.16 M/ L 3.93-5.22 (test code = 761) HEMOGLOBIN (BEAKER) (test code = 12.6 GM/DL 11.2-15.7 410) HEMATOCRIT (BEAKER) (test code = 37.8 % 34.1-44.9 411) MEAN CORPUSCULAR VOLUME (BEAKER) 90.9 fL 79.4-94.8 (test code = 753) MEAN CORPUSCULAR HEMOGLOBIN 30.3 pg 25.6-32.2 (BEAKER) (test code = 751) MEAN CORPUSCULAR HEMOGLOBIN CONC 33.3 GM/DL 32.2-35.5 (BEAKER) (test code = 752) RED CELL DISTRIBUTION WIDTH 11.8 % 11.7-14.4 (BEAKER) (test code = 412) PLATELET COUNT (BEAKER) (test 302 K/CU MM 150-450 code = 756) MEAN PLATELET VOLUME (BEAKER) 9.0 fL 9.4-12.3 L (test code = 754) NUCLEATED RED BLOOD CELLS 0 /100 WBC 0-0 (BEAKER) (test code = 413) RAD, CHEST, 1 VIEW, NON [id number] 04:59:00Reason for exam:- >pneumothoraxShould this be performed at the bedside?->YesFINAL REPORT RAD, CHEST, 1 VIEW, NON DEPT INDICATION: pneumothorax COMPARISON: Prior day's exam FINDINGS: Portable frontal view of the chest. IMPRESSION: Lungs and pleura: Lungs are clear. No pleural effusion. Unchanged small right apical pneumothorax. No left pneumothorax.Heart and mediastinum: Stable contours. Additional findings: None. Signed: Destiny Cespedes [facility] SERVICESroseannbarnes-[facility] Verified Date/Time: 02/17/2019 04:59:14 Reading Location: [address] Transitional Reading Room CT, CHEST, WITHOUT [id number] 02:53:00FINAL REPORT CLINICAL INDICATION: Shortness of breath, [...] Limited images ofupper abdomen: No significant findings. IMPRESSION: Small right pneumothorax. A right chest tube is in place, with the distal portion in the major fissure. Small biapical bullae/blebs. Signed: Raciel Macias Verified Date/Time: 02/17/2019 02:53:00 Reading Location: [address] Reading Room PREGNANCY SCREEN, [id number] 23:45:00 Test Item Value Reference Range Interpretation Comments TEST URINE (BEAKER) (test Negative code = 583) RAD, CHEST, 1 VIEW, NON [id number] 22:03:00Reason for exam:- >pneumothoraxShould this be performed at the bedside?->YesIs the [...] no acute bony abnormality. Signed: Raciel Macias MDRroseannort Verified Date/Time: 02/16/2019 22:03:20 Reading Location: [address] on Reading Room
== END 2020-05-17 16:29 | disposition home or self-care (01) ==
LOC: ER 14:45
DX: R07.9 Chest pain, unspecified (principal); Z20.828 Contact with and (suspected) exposure to other viral communicable diseases; F17.210 Nicotine dependence, cigarettes, uncomplicated
CPT/HCPCS: 71045; 99283; U0002

== ENCOUNTER 2020-06-29 09:44 | Emergency (ER) | payer OTHER ==
--- OUTSIDE RECORDS SUMMARY | 2020-06-29 10:05 | XMS REPORT | Summary of Care ---
:1990 Author Organization [facility] - Health Address [address] [place] [address] Care Team Providers Name Role Phone Jennifer Giron LICHA Primary Care Provider [phone] [place], E Insurance Hmo Encounter Details Date Type Department Care Team Description 05/18/2020 Orders Only [facility] Doctor Unassigned, No [address] [facility] [place] [address] [address] [place] [address] Allergies No Known Allergiesdocumented as of this encounter (statuses as of 05/18/2020) Medications Medication Sig Dispensed Refills Start Date End Date Status FERROUS SULFATE ORAL Take by mouth 2 0 Active (two) times daily. ibuprofen 600 mg Take 600 mg by 0 Active tabletIndications: mouth every 6 Palpitations (six) hours as needed. QUEtiapine 100 mg Take 200 mg by 0 Active tabletIndications: mouth daily. Palpitations pramoxine-hydrocortisone Insert into 30 g 0 11/14/2017 Active 1-1 % rectal rectum 2 (two) creamIndications: times daily. Hemorrhoids, unspecified hemorrhoid type norethindrone 0.35 mg Take 1 tablet by 28 tablet 9 03/20/2018 Active tabletIndications: mouth daily. Encounter for contraceptive management, unspecified type azithromycin 250 mg Take 1 tablet by 1 Package 0 09/09/2019 Active tabletIndications: mouth daily. Streptococcal sore Take 500 mg day throat 1, then 250 mg days 2 to 5. norgestimate-ethinyl Take 1 tablet by 1 Package 2 10/06/2019 Active estradiol (ORTHO mouth daily. TRI-CYCLEN, 28,) 0.18/0.215/0.25 mg-35 mcg (28) tabletIndications: Encounter for other contraceptive management documented as of this encounter (statuses as of 05/18/2020) Active Problems Problem Noted Date Encounter for IUD removal 2019 Alopecia 12/25/2018 Overview: Reports may be genetic, her grandmother has it as well Other depression 12/25/2018 UTI symptoms 06/06/2017 Disruption of perineal wound, 01/23/2017 Nexplanon removal 12/06/2016 Overview: Placed in 11/2016 Well woman exam 10/30/2016 Encounter for other contraceptive management 7 documented as of this encounter (statuses as of 05/18/2020) Resolved Problems Problem Noted Date Resolved Date Disruption of perineal wound, 09/25/2016 10/30/2016 Wound disruption 09/25/2016 10/30/2016 Routine follow-up 09/14/2016 10/30/2016 Tear of vaginal muscle 09/14/2016 10/30/2016 hemorrhage 09/13/2016 10/30/2016 Status post vacuum-assisted vaginal delivery 09/11/2016 09/14/2016 S/P dilation and curettage 09/11/2016 09/14/2016 Liveborn by vaginal delivery 09/11/201610/2016 Acute blood loss as cause of postoperative anemia 09/11/2016 09/14/2016 Normal labor 09/10/2016 09/14/2016 History of pyelonephritis 09/10/2016 10/30/2016 Dysuria 05/01/2016 09/10/2016 Pyelonephritis affecting 05/01/201610/30 Overview: On keflex, then suppression therapy UTI in , antepartum 03/07/2016 09/10/2016 Overview: BEATRIZ neg Rh negative state in antepartum period 03/05/2016 0 09/14/2016 Overview: RHOGAM AT 28 WEEKS Supervision of high risk , antepartum 03/02/2016 09/14/2016 Tobacco use affecting , antepartum 03/02/2016 10/30/2016 documented as of this encounter (statuses as of 05/18/2020) Immunizations Name Administration Dates Next Due HPV 09/11/2016 HPV9 03/21/2017, 11/09/2016 Rho (d) Immune Globulin 09/11/2016 TDAP 07/09/2016 documented as of this encounter Social History Tobacco Use Types Packs/Day Years Used Date Current Every Day Smoker Cigarettes 0.5 Sta rted: 12/26/2007 Smokeless Tobacco: Never Used Alcohol Use Drinks/Week oz/Week Comments No 0 Standard drinks or equivalent 0.0 Sex Assigned at Date Recorded Not on file COVID-19 Exposure Response Date Recorded In the last month, have you been in contact with No / Unsure 05/18/2020 1:30 PM CDT someone who was confirmed or suspected to have Coronavirus / COVID-19? documented as of this encounter Last Filed Vital Signs Not on filedocumented in this encounter Plan of Treatment Health Maintenance Due Date Last Done Comments Depression Screening 2004 INFLUENZA VACCINE (#1) 2020 PAP SMEAR 01/08/2022 01/08/2019, 03/02/2016 DTaP,Tdap,and Td Vaccines (2 - Td) 07/09/2026 07/09/2016 PNEUMOCOCCAL 0-64 YEARS COMBINED SERIES Discontinued documented as of this encounter Procedures Procedure Name Priority Date/Time Associated Diagnosis Comme nts ASSIGNMENT OF BENEFITS Routine 05/18/2020 1:39 PM CDT documented in this encounter Results Not on filedocumented in this encounter Insurance Payer Benefit Plan / Subscriber ID Effective Dates Phone Addre ss Type Group [facility] STAR [id number] 2019-Present Medicaid COMM PLAN - MANAGED MEDICAID documented as of this encounter Advance Directives Name Relationship Healthcare Agent Relationship Co mmunication Sara Da Silva Mother Health Care Agent [phone] ( Home)
--- OUTSIDE RECORDS SUMMARY | 2020-06-29 10:05 | XMS REPORT | Clinical Summary ---
:1990 Author Organization [facility] Address [address] [place] [address] Care Team Providers Name Role Phone Pcp, [...] Assigned at Date Recorded Not on file Last Filed Vital Signs Not on file Plan of Treatment Health Maintenance Due Date Last Done Comments INFLUENZA VACCINE (#1) 2020 CERVICAL CANCER SCREENING PAP ONLY (Age 21-65) 01/08/2022 0 01/08/2019 Results Not on fileafter 06/29/2019 Insurance Payer Benefit Plan Subscriber ID Effective Dates Phone Address Type / Group MEDICAID - [facility] COMM [id number] 2019-Michele morgan MEDICAID [employer] STAR PLAN [facility] Advance Directives For more information, please contact: [phone] Code Status Date Activated Date Inactivated Comments Full Code 02/16/2019 10:02 PM 02/20/2019 5:30 PM This code status was determined by: Patient
--- OUTSIDE RECORDS SUMMARY | 2020-06-29 10:06 | XMS REPORT | Continuity of Care Document ---
:1990 Author Organization [facility] t Address [address] [place] [address] Care Team Providers Name Role Phone Pcp Primary Care Physician Unavailable Emily Baker Attending Clinician IRMA ARAUJO Attending Clinician Unavailable IRMA ARAUJO Admitting Clinician Unavailable Problems Condition Condition Condition Status Onset Resolution Last Treating Co mments Source Name Details Category Date Date Treatment Clinician Date Pneumothor Pneumothor Disease Active C [facility] ax ax 02-16 kes - 00:00: [facility] Allergies, Adverse Reactions, Alerts This patient has no known allergies or adverse reactions. Family History Family Member Diagnosis Comments Start Date Stop Date Source Natural father Hypertension [facility] Maternal grandmother Colon cancer [facility] Maternal grandmother Lung cancer [facility] Natural mother Hypertension [facility] Social History Social Habit Start Date Stop Date Quantity Comments Source History SDOH [facility] - Alcohol Std Drinks Medica l Center History SDOH [facility] - Alcohol Binge Medical [facility] ter Sex Assigned At [facility] Cigarettes smoked 2019-02-17 2019-02-17 [facility] - current (pack per 00:00:00 00:00:00 Medical Center day) - Reported Cigarette 2019-02-17 2019-02-17 [facility] - pack-years 00:00:00 00:00:00 [facility] Tobacco use and 2019-02-17 2019-02-[address] [facility] - exposure 00:00:00 00:00:00 [facility] Alcohol intake 2019-02-17 2019-02-[address] [facility] - 00:00:00 00:00:00 non-drinker of Medical Ce nter alcohol (finding) History SDOH 2019-02-16 2019-02-[address] [facility] - Alcohol Frequency 00:00:00 00:00:00 [facility] Tobacco Comment 2019-02-16 2019-02-16 e-cigs and vape [facility] - 00:00:00 00:00:00 [facility] cigarettes History of tobacco 2019-01-10 [facility] sm[facility] use 00:00:00 [facility] Smoking Status Start Date Stop Date Source Former smoker 2019-02-17 00:00:00 2019-02-17 00:00:[address] [facility] Medications This patient has no known medications. Procedures This patient has no known procedures. Plan of Care Planned Activity Planned Date Details Comments Source Future Scheduled 2022-01-[address] [facility] - Test 00:00:00 malignant neoplasm Medical C enter of cervix (procedure) [code = 941516991] Future Scheduled 2020-04-[address] [facility] - Test 00:00:00 (#1) [code = [facility] INFLUENZA VACCINE (#1)] Encounters Start End Encounter Admission Attending Care Care Encounter Source Date/Time Date/Time Type Type Clinicians Facility Department ID 2020-06-01 2020-06-01 [facility] [id number] 00:00:00 00:00:00 Penny Diaz HEALTHCARE PROF [id number] REGIONAL [id number] MATERNAL [id number] & CHILD [address] [place] [address] Results Test Description Test Time Test Comments Results Result [facility] e Comments TISSUE EXAM 2019-02-09 Surgical Pathology 5 Report 18:18:00 Case: [id number] Authorizing Provider: Luan Araujo Jr., Collected: 02/17/2019 0852 Ordering Location: [address] Received: 02/17/2019 0943 Pathologist: Jing Ch [...] REACTIVE CHANGECC/pl Signing Pathologist Direct Phone Line: [phone] ally signed by Jing Ch MD on 02/23/2019 at 6:18 PMThe overall findings are compatible with history of spontaneous pneumothorax. [place]. [id number] x2, [id number] and postop diagnosis: Pneumothorax, rightA. 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 No gross lesions are identified. Primary Operator sections of the area of adhesion with [...] PATIENT VIEW, NON DEPT 2 exam:->CT ID: [id number] Exam: 13:07:00 removalShould this RAD, CHEST, 1 [...] layering right pleural effusion. Signed: Radha Cardozo Verified Date/Time: 02/20/2019 13:07:10 Reading Location: [address] Transitional Reading Room , CHEST, 1 2019-02-09 Reason for FINAL REPORT PATIENT VIEW, NON DEPT 2 exam:->pneumothora ID: [id number] Chest 05:26:00 xShould this be one view. Clinical performed at the history: pneumothorax bedside?->Yes Comparison: Chest radiograph 02/19/2019 Technique: A single frontal view of the chest was obtained. Findings:There are right-sided chest tubes unchanged.The cardiomediastinal contours are stable. There are post surgical changes in the right hemithorax with small loculated pleural fluid. There is no pneumothorax. Signed: Silver Novak Verified Date/Time: 02/20/2019 05:26:31 , CHEST, 1 2019-02-09 Reason for FINAL REPORT PATIENT VIEW, NON DEPT 1 exam:->pneomothora ID: [id number] 23:15:00 xShould this be EXAMINATION: AP performed [...] and mediastinal contours are unchanged. Signed: Dereje Elliottort Verified Date/Time: 02/19/2019 23:15:02 Reading Location: [address] Reading Room , CHEST, 1 2019-02-09 Reason for FINAL REPORT PATIENT VIEW, NON DEPT 1 exam:->CT to water ID: [id number] 13:31:00 sealShould this be TECHNIQUE: Frontal performed [...] osteopenic for patient's stated age. Signed: Kali Chavezeport Verified Date/Time: 02/19/2019 13:31:14 Reading Location: [facility] Reading Room ESIUM 2019-02-19 06:28:00 Test Item Value Reference Range Interpretation Comme nts MAGNESIUM (BEAKER) (test code = 627) 1.7 mg/dL 1.6-2.6 BASIC METABOLIC [id number] 06:28:00 Test Item Value Reference Range Interpretation [...] PATIEN TS. CBC W/PLT COUNT & AUTO [id number] 05:42:00 Test Item Value Reference Range Interpretation [...] = 2801) RAD, CHEST, 1 VIEW, NON [id number] 04:23:00Reason for exam:- >pneumothoraxShould this be performed at the bedside?->YesFINAL REPORT EXAMINATION: AP PORTABLE CHEST RADIOGRAPH CLINICAL INDICATION: Pneumothorax IMPRESSION: Compared with 02/18/2019. Right-sided chest tubes are grossly stable in position. The asymmetric right lung opacities, right pleural effusion and small right-sided pneumothorax are similar to previous. No definite evidence of new lung consolidation. Cardiac and mediastinal contours are unchanged. Signed: [facility] Verified Date/Time: 02/19/2019 04:23:03 Reading Location: [address] Reading Room CBC W/PLT COUNT & AUTO [id number] 13:24:00 Test Item Value Reference Range Interpretation [...] = 2801) RAD, CHEST, 1 VIEW, NON [id number] 04:39:00Reason for exam:- >pneumothoraxShould this be performed at the bedside?->YesFINAL REPORT CLINICAL INDICATION: Pneumothorax Comparison: 02/17/2019 at 1011 hours The cardiomediastinal contours are stable. Postsurgical changes are present in the right mid toupper lung. There is a stable right hydropneumothorax. Right chest tubes remain in place. Signed: Raciel Macias MDReport Verified Date/Time: 02/18/2019 04:39:20 Reading Location: [address] Reading Room RAD, CHEST, 1 VIEW, NON [id number] 10:34:00Reason for exam:->post opIs the patient ?->NoShould [...] MDReport Verified Date/Time: 02/17/2019 10:34:25 Reading Location: [facility] Reading Room [id number] 07:07:00 Test Item Value Reference Range Interpretation Comments MAGNESIUM (BEAKER) 1.8 mg/dL 1.6-2.6 Specimen slightly (test code = 627) hemolyzed [id number] 07:07:00 Test Item Value Reference Range Interpretation Comments PHOSPHORUS (BEAKER) 3.7 mg/dL 2.3-4.7 Specimen slightly (test code = 604) hemolyzed BASIC METABOLIC [id number] 07:07:00 Test Item Value Reference Range Interpretation [...] = 413) RAD, CHEST, 1 VIEW, NON [id number] 04:59:00Reason for exam:- >pneumothoraxShould this be performed at the bedside?->YesFINAL REPORT RAD, CHEST, 1 VIEW, NON DEPT INDICATION: pneumothorax COMPARISON: Prior day's exam FINDINGS: Portable frontal view of the chest. IMPRESSION: Lungs and pleura: Lungs are clear. No pleural effusion. Unchanged small right apical pneumothorax. No left pneumothorax.Heart and mediastinum: Stable contours. Additional findings: None. Signed: Destiny Cespedes MDReport Verified Date/Time: 02/17/2019 04:59:14 Reading Location: [address] Reading [address] CT, CHEST, WITHOUT [id number] 02:53:00FINAL REPORT CLINICAL INDICATION: Shortness of breath, [...] fissure. Small biapical bullae/blebs. Signed: Raciel Macias MDReport Verified Date/Time: 02/17/2019 02:53:00 Reading Location: [address] Reading Room PREGNANCY SCREEN, [id number] 23:45:00 Test Item Value Reference Range Interpretation Comments TEST URINE (BEAKER) (test Negative code = 583) RAD, CHEST, 1 VIEW, NON [id number] 22:03:00Reason for exam:- >pneumothoraxShould this be performed [...] no acute bony abnormality. Signed: Raciel Macias MDReport Verified Date/Time: 02/16/2019 22:03:20 Reading Location: [address] on Reading Room
--- OUTSIDE RECORDS SUMMARY | 2020-06-29 10:06 | XMS REPORT | Summary of Care ---
:1990 Author Organization [facility] - Health Address [address] [place] [address] Care Team Providers Name Role Phone Jennifer Giron [facility] Primary Care Provider [phone] Herib[address] Landrum Insurance Hmo Reason for Visit Reason Comments Well Woman Exam Encounter Details Date Type Department Care Team Description 05/31/2020 Office Visit [facility]- Penny Espinoza control counseling (Primary Dx); Markie R, GOVERNMENT AFFAIRS FELLOW Well woman exam (no gynecological exam); [address] Screen fo r STD (sexually transmitted disease); [address] Tobacco use disorder; [place], [place] [address] Underweight [id number] Allergies No Known Allergiesdocumented as of this encounter (statuses as of 05/31/2020) Medications Medication Sig Dispensed Refills Start Date End Date Status FERROUS SULFATE ORAL Take by 0 0 Discontinued mouth 2 (two) times daily. ibuprofen 600 mg Take 600 mg 0 05/31/2020 Discontinued tabletIndications: by mouth Palpitations every 6 (six) hours as needed. QUEtiapine 100 mg Take 200 mg 0 05/31/2020 Discontinued tabletIndications: by mouth Palpitations daily. pramoxine-hydrocorti Insert into 30 g 0 11/14/201705/31 Discontinued sone 1-1 % rectal rectum 2 creamIndications: (two) times Hemorrhoids, daily. unspecified hemorrhoid type norethindrone 0.35 Take 1 tablet 28 tablet 9 03/20/20182019 Discontinued mg by mouth tabletIndications: daily. Encounter for contraceptive management, unspecified type azithromycin 250 mg Take 1 tablet 1 Package 0 09/09/201905/31 Discontinued tabletIndications: by mouth Streptococcal sore daily. Take throat 500 mg day 1, then 250 mg days 2 to 5. norgestimate-ethinyl Take 1 tablet 1 Package 2 10/06/201905/13 Discontinued estradiol (ORTHO by mouth TRI-CYCLEN, 28,) daily. 0.18/0.215/0.25 mg-35 mcg (28) tabletIndications: Encounter for other contraceptive management documented as of this encounter (statuses as of 05/31/2020) Active Problems Problem Noted Date Underweight 05/31/2020 Tobacco use disorder 05/31/2020 control counseling 2019 Alopecia 12/25/2018 Overview: Reports may be genetic, her grandmother has it as well Other depression 12/25/2018 UTI symptoms 06/06/2017 Disruption of perineal wound, 01/23/2017 Nexplanon removal 12/06/2016 Overview: Placed in 11/2016 Well woman exam 10/30/2016 Encounter for other contraceptive management 7 documented as of this encounter (statuses as of 05/31/2020) Resolved Problems Problem Noted Date Resolved Date Disruption of perineal wound, 09/25/2016 10/30/2016 Wound disruption 09/25/2016 10/30/2016 Routine follow-up 09/14/2016 10/30/2016 Tear of vaginal muscle 09/14/2016 10/30/2016 hemorrhage 09/13/2016 10/30/2016 Status post vacuum-assisted vaginal delivery 09/11/2016 09/14/2016 S/P dilation and curettage 09/11/2016 09/14/2016 Liveborn infant by vaginal delivery 09/11/201610/2016 Acute blood loss [...] as of this encounter (statuses as of 05/31/2020) Immunizations Name Administration Dates Next Due HPV 09/11/2016 HPV9 03/21/2017, 11/09/2016 Influenza Virus Vaccine Quad .5 mL IM 6+ MO 05/18/2020 Rho (d) Immune Globulin 09/11/2016 TDAP 07/09/2016 documented as of this encounter Social History Tobacco Use Types Packs/Day Years Used Date Current Every Day Smoker Cigarettes 0.25 Sta rted: 12/26/2007 Smokeless Tobacco: Never Used Tobacco Cessation: Ready to Quit: No; Co unseling Given: Yes Comments: 6 ciggs a day Alcohol Use Drinks/Week oz/Week Comments No 0 Standard drinks or equivalent 0.0 Sex Assigned at Date Recorded Not on file COVID-19 Exposure Response Date Recorded In the last month, have you been in contact with No / Unsure 05/31/2020 1:40 PM CDT someone who was confirmed or suspected to have Coronavirus / COVID-19? documented as of this encounter Last Filed Vital Signs Vital Sign Reading Time Taken Comments Blood Pressure 122/84 05/31/2020 1:41 PM CDT Pulse 91 05/31/2020 1:41 PM CDT Temperature 36.9 C (98.4 F) 05/31/2020 1:41 PM CDT Respiratory Rate 16 05/31/2020 1:41 PM CDT Oxygen Saturation - - Inhaled Oxygen Concentration - - Weight 52.9 kg (116 lb 11.2 oz) 05/31/2020 1:41 PM CDT Height 170.2 cm (5' 7") 05/31/2020 1:41 PM CDT Body Mass Index 18.28 05/31/2020 1:41 PM CDT documented in this encounter Progress Notes Penny Espinoza, MARCO ANTONIO - 05/31/2020 1:30 PM CDT Chief complaint: Chief Complaint Patient presents with Well Woman Exam HPI 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 Patient denies any abdominal/pelvic pain. Patient denies any other concerns. Patient reports LMP was 05/07/2020. Patient reports lastsexual intercourse was 1 year ago and declines use for BCM. Patient desires need for STD/STI testing. Patient denies current or past physical, sexual or emotional abuse. Histories OB History Para Term AB Living 1 1 1 1 SAB TAB Ectopic Multiple Live Births 1 # Outcome Date GA Lbr Adrian/2nd Weight Sex Delivery Anes PTL Lv 1 Term 09/10/16 37w6d 7 lb 7 oz (3.374 kg) F VAGINAL LEYDA Complications: Other Excessive Bleeding Past Medical History: Diagnosis Date Acute blood loss as cause of postoperative anemia 09/11/2016 Bipolar depression 2016 Depression at 16 years of age, has had thoughts of hurting herself Other depression 12/25/2018 Pyelonephritis affecting in second trimester, antepartum 05/01/2016 Rh negative state in antepartum period 03/05/2016 Transfusion history 08/2016 Family History Problem Relation Age of Onset Hypertension Mother No Significant Medical Problems Father No Significant Medical Problems Sister Diabetes Maternal Grandmother Cancer Maternal Grandmother lung Diabetes Maternal Grandfather Arthritis Paternal Grandmother RA Alzheimers dementia Paternal Grandfather Asthma NoFHx defects NoFHx Breast Cancer NoFHx Colon Cancer NoFHx Ovarian Cancer NoFHx Uterine Cancer NoFHx Depression NoFHx Genetic NoFHx Heart NoFHx High cholesterol NoFHx Mental retardation NoFHx Psychiatry NoFHx Osteoporosis NoFHx Neurological NoFHx Other - see comments NoFHx Family Status Relation Name Status Mo Alive Fa Alive Sis Alive MAunt Alive MUnc Alive PAunt Alive PUnc Alive MGMo Alive MGFa Alive PGMo PGFa Alive NoFHx (Not Specified) Past Surgical History: Procedure Laterality Date DILATION AND CURETTAGE (SHX) N/A 09/10/2016 Surgeon: Hasmukh Alexandra; Location: Labor and Delivery - [facility] Social History Socioeconomic History Marital status: Single Spouse name: Not on file Number of children: Not on file Years of education: Not on file Highest education level: Not on file Occupational History Not on file Social Needs Financial resource strain: Not on file Food insecurity Worry: Not on file Inability: Not on file Transportation needs Medical: Not on file Non-medical: Not on file Tobacco Use Smoking status: Current Every Day Smoker Packs/day: 0.25 Types: Cigarettes Start date: 12/26/2007 Smokeless tobacco: Never Used Tobacco comment: 6 ciggs a day Substance and Sexual Activity Alcohol use: No Alcohol/week: 0.0 standard drinks Drug use: No Sexual activity: Not Currently Partners: Male control/protection: None Comment: last sexual intercourse: 1+ years ago Lifestyle Physical activity Days per week: Not on file Minutes per session: Not on file Stress: Not on file Relationships Social connections Talks on phone: Not on file Gets together: Not on file Attends sabianism service: Not on file Active member of club or organization: Not on file Attends meetings of clubs or organizations: Not on file Relationship status: Not on file Intimate partner violence Fear of current or ex partner: Not on file Emotionally abused: Not on file Physically abused: Not on file Forced sexual activity: Not on file Other Topics Concern Not on file Social History Narrative Anabaptism preference is Quaker. Patient lives with maternal grandparents and child. Social History Substance and Sexual Activity Sexual Activity Not Currently Partners: Male control/protection: None Comment: last sexual intercourse: 1+ years ago Labs Labs are pending. Radiology No new radiology. Allergies Jemima has No Known Allergies. Medications Jemima currently has no medications in their medication list. Review of Systems Constitutional: Negative for activity change, appetite change, fatigue, unexpected weight change, weight gain and weight loss. HENT: Negative for sore throat. Eyes: Negative for visual disturbance. Respiratory: Negative for cough and shortness of breath. Breasts: Negative for discharge, mass, pain and unequal size. Cardiovascular: Negative for chest pain, palpitations and leg swelling. Gastrointestinal: Negative. Negative for abdominal pain, anal bleeding, blood in stool, constipation, diarrhea, nausea, rectal pain and vomiting. Genitourinary: Negative for bladder incontinence, dysuria, urgency, flank pain, vaginal bleeding, vaginal discharge, genital sores, vaginal pain and pelvic pain. Skin: Negative for color change and rash. Neurological: Negative. Negative for dizziness, syncope and headaches. Psychiatric/Behavioral: Negative for confusion, self-injury and sleep disturbance. The patient is not nervous/anxious. Hematological: Negative for cold intolerance and heat intolerance. Endocrine: Negative for hair loss, cold intolerance, heat intolerance, weight gain and weight loss. BP 122/84 (BP Location: Right arm, Patient Position: Sitting, BP CUFF SIZE: Adult Small) | Pulse 91 | Temp 36.9 C (98.4 F) (Oral) | Resp 16 | Ht 5' 7" (1.702 m) | Wt 116 lb 11.2 oz (52.9 kg) | LMP 05/07/2020 | BMI 18.28 kg/m Pregravid BMI: Could not be calculated Physical Exam Vitals reviewed. Constitutional: She is oriented to person, place, and time. She appears well- developed and well-nourished. Her body habitus is normal. Cardiovascular: Regular rate and rhythm. No peripheral edema present. Pulmonary/Chest: Normal inspiratory effort. Neuro/Psychiatric: Inappropriate mood and affect. She is oriented to person, place, and time. Skin: Skin normal. No lesion, no rash and no ulceration present. Assessment/Plan Rubella: VZV: BMI: Td: Pap Smear: Gardasil: Mammogram: Guaiac: Colonoscopy: control counseling (primary encounter diagnosis) Comment: patient declines need for BCM Plan: POCT TEST Well woman exam (no gynecological exam) Comment: Routine WWE Plan: Denies zika virus risk, signs and symptoms such as fever,rash,joint pain, conjunctivitis (red eyes), muscle pain, headaches; outside [place] travel to areas affected by zika, and FOB exposure to zika.Educated on use of mosquito repellent. Covid x12 screening done, screening results are negative. Screen for STD (sexually transmitted disease) Comment: patient desires testing Plan: GC & CHLAMYDIA AMPLIFIED ASSAY, GALV ONLY - SYPHILIS IGG/IGM, HIV 1/2 AG-AB WITH REFLEX Tobacco use disorder Comment: patient smokes 6 cigs a day Plan: Smoking cessation discussed. Patient educated on the effects of chronic health problems of tobacco use on future pregnancies and/or detention health. Underweight Comment: BMI: 18.28 Plan: Patient educated on normal BMI and nutrition Return to clinic in 1 year for WWE. Discussed treatment options. Medications as ordered. Reviewed patient instructions and provided printed copy. This visit did not involve counseling and coordination that comprised more than 50% of the visit time. MARCO ANTONIO [place] 05/31/2020 2:11 PM Mario Tavarez RN - 05/31/2020 1:30 PM CDT30 year old presents to the clinic for wwe. 1) Previous BCM: None 2) Desired BCM: undecided 3) LMP: 05/07/2020 4) Last Ford: 1+ years ago 5) Last Pap: 01/08/2019 Results: Negative 6) Tdap: 2015 7) Gardasil: Completed 8) C/O: Patient denies any issues 9) Patient denies history of physical, emotional, or sexual abuse. Patient states that she currently feels safe at home. MARIO TAVAREZ RN 05/31/2020 1:56 PM documented in this encounter Plan of Treatment Name Type Priority Associated Diagnoses Order S chedule GC & CHLAMYDIA AMPLIFIED LAB Routine Screen for STD ( sexually Ordered: 05/31/2020 ASSAY transmitted disease) [facility] ONLY - SYPHILIS LAB Routine Screen for STD (sexu ally Ordered: 05/31/2020 IGG/IGM transmitted disease) HIV 1/2 AG-AB WITH REFLEX LAB Routine Screen for STD (sexually Ordered: 05/31/2020 transmitted disease) Health Maintenance Due Date Last Done Comments Depression Screening 05/18/2021 05/18/2020 PAP SMEAR 01/08/2022 01/08/2019, 03/02/2016 DTaP,Tdap,and Td Vaccines (2 - Td) 07/09/2026 07/09/2016 INFLUENZA VACCINE Completed 05/18/2020 PNEUMOCOCCAL 0-64 YEARS COMBINED SERIES Discontinued documented as of this encounter Procedures Procedure Name Priority Date/Time Associated Diagnosis Comme nts POCT TEST Routine 05/31/2020 control Results for this counseling procedure are i n the results section . documented in this encounter Results POCT TEST (05/31/2020) Pathologist Sig nature POCT PREG Negative On board controls acceptable Yes with C Line POCT PREG LOT # POCT PREG TEST DATE Specimen Urine - URINE, CLEAN CATCH documented in this encounter Visit Diagnoses Diagnosis control counseling - Primary General counseling for initiation of oth er contraceptive measures Well woman exam (no gynecological exam) Routine general medical examination at a health care facility Screen for STD (sexually transmitted dis ease) Screening examination for venereal disea se Tobacco use disorder Underweight documented in this encounter Insurance Payer Benefit Plan / Subscriber ID Effective Dates Phone Addre ss Type Group [facility] [id number] 2019-Present Medicaid COMM PLAN - MANAGED MEDICAID documented as of this encounter Advance Directives Name Relationship Healthcare Agent Relationship Co mmunication Sara Da Silva Mother Health Care Agent [phone] ( Home)
--- OUTSIDE RECORDS SUMMARY | 2020-06-29 10:06 | XMS REPORT | Summary of Care ---
:[address] [facility] - Health Address [address] [place] [address] Care Team Providers Name Role Phone Jennifer Giron [facility] Primary Care Provider [phone] Heriberto Landrum Insurance Hmo Reason for Visit Reason Comments Well Woman Exam Encounter Details Date Type Department Care Team Description 05/31/2020 Office Visit [facility] RMCHP- Penny Espinoza control counseling (Primary Dx); Markie R, FAILURE ANALYSIS TECHNICIAN Well woman exam (no gynecological exam); [address] Screen fo r STD (sexually transmitted disease); [address] Tobacco use disorder; [place], [place] [address] Underweight [phone] Allergies No Known Allergiesdocumented as of this [...] Alexandra; Location: Labor and Delivery - [facility] [place] Social History Socioeconomic History Marital status: Single [...] file Gets together: Not on file Attends amish service: Not on file Active member of [...] Concern Not on file Social History Narrative Alevism preference is Rastafari. Patient lives with maternal grandparents and child. [...] of tobacco use on future pregnancies and/or shelter health. Underweight Comment: BMI: 18.28 Plan: Patient [...] BCM: undecided 3) LMP: 05/07/2020 4) Last [place]: 1+ years ago 5) Last Pap: 01/08/2019 [...] Effective Dates Phone Addre ss Type Group [facility] STAR [id number] 2019-Present Medicaid COMM PLAN - MANAGED MEDICAID documented as of this encounter Advance Directives Name Relationship Healthcare Agent Relationship Co mmunication Sara Da Silva Mother Health Care Agent [phone] ( Home)
--- OUTSIDE RECORDS SUMMARY | 2020-06-29 10:06 | XMS REPORT | Summary of Care ---
:1990 Author Organization [facility] - Health Address [address] [place] [address] Care Team Providers Name Role Phone Jennifer Giron [facility] Primary Care Provider [phone] Heriberto Landrum Insurance Hmo Reason for Visit Reason Comments Well Woman Exam Encounter Details Date Type Department Care Team Description 05/31/2020 Office Visit [facility] RMCHP- Penny Espinoza control counseling (Primary Dx); Markie R, HAZARDOUS WASTE MANAGEMENT SPECIALIST Well woman exam (no gynecological exam); [address] Screen fo r STD (sexually transmitted disease); [address] [place] Tobacco use disorder; [place], [place] [address] Underweight [phone] Allergies No Known Allergiesdocumented as of this [...] Alexandra; Location: Labor and Delivery - [facility] [place] Social History Socioeconomic History Marital status: Single [...] file Gets together: Not on file Attends temple service: Not on file Active member of [...] Concern Not on file Social History Narrative Worship preference is Restoration. Patient lives with maternal grandparents and child. [...] of tobacco use on future pregnancies and/or fpc health. Underweight Comment: BMI: 18.28 Plan: Patient [...] BCM: undecided 3) LMP: 05/07/2020 4) Last [place]: 1+ years ago 5) Last Pap: 01/08/2019 [...] Effective Dates Phone Addre ss Type Group [facility] STAR [id number] 2019-Present Medicaid COMM PLAN - MANAGED MEDICAID documented as of this encounter Advance Directives Name Relationship Healthcare Agent Relationship Co mmunication Sara Da Silva Mother Health Care Agent [phone] ( Home)
--- OUTSIDE RECORDS SUMMARY | 2020-06-29 10:06 | XMS REPORT | Summary of Care ---
:1990 Author Organization [facility] - Health Address [address] [place] [address] Care Team Providers Name Role Phone Jennifer Giron [facility] Primary Care Provider [phone] Landrum, E Insurance Hmo Reason for Visit Reason Comments NURSE VISIT Encounter Details Date Type Department Care Team Description 05/18/2020 Nurse Visit [facility]- Ezio Giron, [facility] [address] [place], [place] [address] Need for influenza [place] [facility], [facility] Nurse vaccination (Primary [address] [place] [place] Dx) [place] [address] Allergies No Known Allergiesdocumented as of this [...] Sign Reading Time Taken Comments Blood Pressure 119/79 05/18/2020 1:32 PM CDT Pulse 88 05/18/2020 1:32 PM CDT Temperature 36.4 C (97.5 F) 05/18/2020 1:32 PM CDT Respiratory Rate 16 05/18/2020 1:32 PM CDT Oxygen Saturation - - Inhaled Oxygen Concentration - - Weight 54.4 kg (119 lb 14.4 oz) 05/18/2020 1:32 PM CDT Height 172.7 cm (5' 8") 05/18/2020 1:32 PM CDT Body Mass Index 18.23 05/18/2020 1:32 PM CDT documented in this encounter Plan of Treatment Date Type Specialty Care Team Description 06/08/2020 Office Visit [facility] [address] [place], [place] [address] [phone] Health Maintenance Due Date Last Done Comments Depression Screening 05/18/2021 05/18/2020 PAP SMEAR 01/08/2022 01/08/2019, 03/02/2016 DTaP,Tdap,and Td Vaccines (2 - Td) 07/09/2026 07/09/2016 INFLUENZA VACCINE Completed 05/18/2020 PNEUMOCOCCAL 0-64 YEARS COMBINED SERIES Discontinued documented as of this encounter Procedures Procedure Name Priority Date/Time Associated Diagnosis Comme nts FLU VACC ([id number]), Routine 05/18/2020 1:56 PM Need for inf luenza 6+ MONTHS, IM, QUAD CDT vaccination documented in this encounter Results Not on filedocumented in this encounter Visit Diagnoses Diagnosis Need for influenza vaccination - Primary Need for prophylactic vaccination and in oculation against influenza documented in this encounter Insurance Payer Benefit Plan / Subscriber ID Effective Dates Phone Addre ss Type Group [facility] STAR [id number] 2019-Present Medicaid COMM PLAN - MANAGED MEDICAID documented as of this encounter Advance Directives Name Relationship Healthcare Agent Relationship Co mmunication Sara Da Silva Mother Health Care Agent [phone] ( Home)
--- OUTSIDE RECORDS SUMMARY | 2020-06-29 10:07 | XMS REPORT | Summary of Care ---
:1990 Author Organization [facility] - Health Address [address] [place] [address] Care Team Providers Name Role Phone Jennifer Giron [facility] Primary Care Provider [phone] Heriberto Landrum Insurance Hmo Reason for Visit Reason Comments Well Woman Exam Encounter Details Date Type Department Care Team Description 05/31/2020 Office Visit [facility] RMCHP- Penny Espinoza control counseling (Primary Dx); Markie R, FLOW WORKER Well woman exam (no gynecological exam); [address] Screen fo r STD (sexually transmitted disease); [address] [place] Tobacco use disorder; [place], [place] [address] Underweight [phone] Allergies No Known Allergiesdocumented as of this [...] Alexandra; Location: Labor and Delivery - [facility] [place] Social History Socioeconomic History Marital status: Single [...] file Gets together: Not on file Attends latter-day service: Not on file Active member of [...] Concern Not on file Social History Narrative Yarsanism preference is Tenriism. Patient lives with maternal grandparents and child. [...] no rash and no ulceration present. Assessment/Plan Rubella:Positive VZV:Positive BMI:18.28 Td:2016 Pap Smear:2019 Gardasil:2017 Mammogram:N/A Guaiac:N/A Colonoscopy:N/A control counseling (primary encounter diagnosis) Comment: patient [...] of tobacco use on future pregnancies and/or intermission coordinator health. Underweight Comment: BMI: 18.28 Plan: Patient [...] BCM: undecided 3) LMP: 05/07/2020 4) Last [place]: 1+ years ago 5) Last Pap: 01/08/2019 Results: Negative 6) Tdap: 2015 7) Gardasil: Completed 8) C/O: Patient denies any issues 9) Patient denies history of physical, emotional, or sexual abuse. Patient states that she currently feels safe at home. MARIO TAVAREZ RN 05/31/2020 1:56 PM documented in this encounter Plan of Treatment Date Type Specialty Care Team Description 05/31/2021 Office Visit [facility] Penny Espinoza FNP [address] [place], [place] [address] [phone] Name Type Priority Associated Diagnoses Date/Ti me GC & CHLAMYDIA LAB Routine Screen for STD (sexually 1 2:18 PM CDT AMPLIFIED ASSAY transmitted disease) GALV ONLY - [facility] LAB Routine Screen for STD (sexu ally 05/31/2020 2:18 PM CDT IGG/IGM transmitted disease) HIV 1/2 AG-AB WITH LAB Routine Screen for STD (sexual ly 05/31/2020 2:17 PM CDT REFLEX transmitted disease) Health Maintenance Due Date Last [...] Dates Phone Addre ss Type Group [facility] [id number] 2019-Present Medicaid COMM PLAN - MANAGED MEDICAID documented as of this encounter Advance Directives Name Relationship Healthcare Agent Relationship Co mmunication Sara Da Silva Mother Health Care Agent [phone] ( Home)
--- OUTSIDE RECORDS SUMMARY | 2020-06-29 10:07 | XMS REPORT | Summary of Care ---
:1990 Author Organization [facility] - Health Address [address] [place] [address] Care Team Providers Name Role Phone [facility] Primary Care Provider [phone] Landrum, E Insurance Hmo Reason for Visit Reason Comments CHLAMYDIA Encounter Details Date Type Department Care Team Description 06/01/2020 Telephone [facility] Health RMCHP- A Penny Saha, FOOD COUNTER ATTENDANT CHLAMYDIA [address] [facility] [place] [address] [place] [address] [place] [address] [phone] Allergies No Known Allergiesdocumented as of this encounter (statuses as of 06/02/2020) Medications Medication Sig Dispensed Refills Start Date End Date Status azithromycin 500 mg Take 2 tablets 2 tablet 0 06/01/202005/13 Active tabletIndications: by mouth daily Chlamydia for 1 day. documented as of this encounter (statuses as of 06/02/2020) Active Problems Problem Noted Date Underweight 05/31/2020 Tobacco use disorder 05/31/2020 control counseling 2019 Alopecia 12/25/2018 Overview: Reports may be genetic, her grandmother has it as well Other depression 12/25/2018 UTI symptoms 06/06/2017 Disruption of perineal wound, 01/23/2017 Nexplanon removal 12/06/2016 Overview: Placed in 11/2016 Well woman exam 10/30/2016 Encounter for other contraceptive management 7 documented as of this encounter (statuses as of 06/02/2020) Resolved Problems Problem Noted Date Resolved Date [...] as of this encounter (statuses as of 06/02/2020) Immunizations Name Administration Dates Next Due HPV 09/11/2016 HPV9 03/21/2017, 11/09/2016 Influenza Virus Vaccine Quad .5 mL IM 6+ MO 05/18/2020 Rho (d) Immune Globulin 09/11/2016 TDAP 07/09/2016 documented as of this encounter Social History Tobacco Use Types Packs/Day Years Used Date Current Every Day Smoker Cigarettes 0.25 Sta rted: 12/26/2007 Smokeless Tobacco: Never Used Comments: 6 ciggs a day Alcohol Use [...] Signs Not on filedocumented in this encounter Miscellaneous Notes Telephone Encounter - Caryl Shipman LVN - 06/02/2020 8:28 AM CDTJemima Parmar is a 30 year old female 2nd attempt to call patient, no answer, no vm set up. elephone Encounter - Mario Tavarez RN - 06/01/2020 3:38 PM CDT1st attempt. No answer. No vm box set up. MARIO TAVAREZ RN 06/01/2020 3:38 PM Telephone Encounter - Penny Espinoza FNP - 06/01/2020 3:15 PM CDTPlease notify the patient of her positive STI results (Chlmydia+). Please inform patient that RX hasbeen sent to pharmacy. Patient should complete all medication. Please advise her on safe sex practices and to remain abstinent for at least 2 weeks post treatment. Her partner can be treated and testedper protocol. If she is not she will need a BEATRIZ in 3 months, and advise her on HIV testing if she has not recently been tested. documented in this encounter Plan of Treatment Date Type Specialty Care Team Description 05/31/2021 Office Visit [facility] Penny Espinoza FNP [address] [place], [place] [address] [phone] Health Maintenance Due Date Last Done Comments Depression Screening 05/18/2021 05/18/2020 PAP SMEAR 01/08/2022 01/08/2019, 03/02/2016 DTaP,Tdap,and Td Vaccines (2 - Td) 07/09/2026 07/09/2016 INFLUENZA VACCINE Completed 05/18/2020 PNEUMOCOCCAL 0-64 YEARS COMBINED SERIES Discontinued documented as of this encounter Results Not on filedocumented in this encounter Visit Diagnoses Diagnosis Chlamydia - Primary Other specified chlamydial infection, in conditions classified elsewhere and of unspecified site documented in this encounter Insurance Payer Benefit Plan / Subscriber ID Effective Dates Phone Addre ss Type Group [facility] STAR [id number] 2019-Present Medicaid COMM PLAN - MANAGED MEDICAID documented as of this encounter Advance Directives Name Relationship Healthcare Agent Relationship Co mmunication Sara Da Silva Mother Health Care Agent [phone] ( Home)
--- OUTSIDE RECORDS SUMMARY | 2020-06-29 10:07 | XMS REPORT | Summary of Care ---
:1990 Author Organization [facility] - Health Address [address] [place] [address] Care Team Providers Name Role Phone Jennifer Giron [facility] Primary Care Provider [phone] Heriberto Landrum Insurance Hmo Reason for Visit Reason Comments Well Woman Exam Encounter Details Date Type Department Care Team Description 05/31/2020 Office Visit [facility] RMCHP- Penny Espinoza control counseling (Primary Dx); Markie R, COUNTY [place] CITY AUDITOR Well woman exam (no gynecological exam); [address] [place] [address] Screen fo r STD (sexually transmitted disease); [address] [place] Tobacco use disorder; [place], [place] [address] Underweight [phone] Allergies No Known Allergiesdocumented as of this [...] Alexandra; Location: Labor and Delivery - [facility] [place] Social History Socioeconomic History Marital status: Single [...] file Gets together: Not on file Attends moravian service: Not on file Active member of [...] Concern Not on file Social History Narrative Zoroastrian preference is Restoration. Patient lives with maternal [...] of tobacco use on future pregnancies and/or senior living health. Underweight Comment: BMI: 18.28 Plan: Patient [...] BCM: undecided 3) LMP: 05/07/2020 4) Last [place]: 1+ years ago 5) Last Pap: 01/08/2019 [...] [facility] Penny Espinoza FNP [address] [place], [place] [address] [phone] Name Type Priority Associated Diagnoses Date/Ti me [...] Effective Dates Phone Addre ss Type Group [facility] STAR [id number] 2019-Present Medicaid COMM PLAN - MANAGED MEDICAID documented as of this encounter Advance Directives Name Relationship Healthcare Agent Relationship Co mmunication Sara Da Silva Mother Health Care Agent [phone] ( Home)
--- OUTSIDE RECORDS SUMMARY | 2020-06-29 10:07 | XMS REPORT | Summary of Care ---
:1990 Author Organization [facility] - Health Address [address] [place] [address] Care Team Providers Name Role Phone [facility] Primary Care Provider [phone] Landrum, E Insurance Hmo Reason for Visit Reason Comments CHLAMYDIA Encounter Details Date Type Department Care Team Description 06/01/2020 Telephone [facility] Health RMCHP- A Penny Saha, RETAIL PHARMACY MANAGER CHLAMYDIA [address] [facility] [address] [place] [address] [place] [address] [phone] Allergies No Known Allergiesdocumented as of this encounter (statuses as of 06/01/2020) Medications Medication Sig Dispensed Refills Start Date End Date Status azithromycin 500 mg Take 2 tablets 2 tablet 0 06/01/202005/13 Active tabletIndications: by mouth daily Chlamydia for 1 day. documented as of this encounter (statuses as of 06/01/2020) Active Problems Problem Noted Date Underweight 05/31/2020 Tobacco use disorder 05/31/2020 control counseling 2019 Alopecia 12/25/2018 Overview: Reports may be genetic, her grandmother has it as well Other depression 12/25/2018 UTI symptoms 06/06/2017 Disruption of perineal wound, 01/23/2017 Nexplanon removal 12/06/2016 Overview: Placed in 11/2016 Well woman exam 10/30/2016 Encounter for other contraceptive management 7 documented as of this encounter (statuses as of 06/01/2020) Resolved Problems Problem Noted Date Resolved Date [...] as of this encounter (statuses as of 06/01/2020) Immunizations Name Administration Dates Next Due HPV [...] this encounter Miscellaneous Notes Telephone Encounter - Penny Espinoza FNP - [...] [facility] Penny Espinoza FNP [address] [place] [address] [phone] Health Maintenance Due Date Last Done Comments [...] Effective Dates Phone Addre ss Type Group [facility] STAR [id number] 2019-Present Medicaid COMM PLAN - MANAGED MEDICAID documented as of this encounter Advance Directives Name Relationship Healthcare Agent Relationship Co mmunication Sara Da Silva Mother Health Care Agent [phone] ( Home)
--- OUTSIDE RECORDS SUMMARY | 2020-06-29 10:07 | XMS REPORT | Summary of Care ---
:1990 Author Organization [facility] - Health Address [address] [place] [address] Care Team Providers Name Role Phone [facility] Primary Care Provider [phone] Landrum, E Insurance Hmo Reason for Visit Reason Comments CHLAMYDIA Encounter Details Date Type Department Care Team Description 06/01/2020 Telephone [facility] Health RMCHP- A Penny Saha, HELICOPTER TECHNICIAN CHLAMYDIA [address] [facility] tree [address] [place] [address] [place] [address] [phone] Allergies No Known Allergiesdocumented as of this [...] this encounter Miscellaneous Notes Telephone Encounter - Mario Tavarez RN - 06/01/2020 [...] [facility] Penny Espinoza FNP [address] [place], [place] [address] [phone] Health Maintenance Due Date Last Done Comments [...] / Subscriber ID Effective Dates Phone Addre Type Group [facility] [id number] 2019-Present Medicaid COMM PLAN - MANAGED MEDICAID documented as of this encounter Advance Directives Name Relationship Healthcare Agent Relationship Co mmunication Sara Da Silva Mother Health Care Agent [phone] ( Home)
--- OUTSIDE RECORDS SUMMARY | 2020-06-29 10:08 | XMS REPORT | Summary of Care ---
:1990 Author Organization [facility] - Health Address [address] [place] [address] Care Team Providers Name Role Phone [facility] Primary Care Provider [phone] Landrum, E Insurance Hmo Reason for Visit Reason Comments CHLAMYDIA Encounter Details Date Type Department Care Team Description 06/01/2020 Telephone [facility] Health RMCHP- A Penny Saha, TOP EXECUTIVE CHLAMYDIA [address] [facility] tree [address] [place] [address] [place] [address] [phone] Allergies No Known Allergiesdocumented as of this [...] Telephone Encounter - Mario Tavarez RN - 06/02/2020 9:31 AM CDT Notified the patient of her positive STI results Chlamydia. Notified the patient her medication has been sent to her pharmacy on file. Educated patient she should complete the entire course, advised patient to practice safe sex practices and to remain abstinent for at least 1-2 weeks post treatment. Patient declines to have partner treated. Advised patient on HIV testing if she has not recently been tested. Advised BEATRIZ appointment in 3 months. Pt verbalized understanding. MARIO TAVAREZ RN 06/02/2020 9:33 AM Telephone Encounter - Caryl Shipman LVN - [...] Treatment Date Type Specialty Care Team Description 09/02/2020 Acetylene Operator Visit [facility] 05/31/2021 Office Visit [facility] Penny Espinoza FNP [address] [place], [place] [address] [phone] Health Maintenance Due Date Last Done Comments [...] Effective Dates Phone Addre ss Type Group [facility] [id number] 2019-Present Medicaid COMM PLAN - MANAGED MEDICAID documented as of this encounter Advance Directives Name Relationship Healthcare Agent Relationship Co mmunication Sara Da Silva Mother Health Care Agent [phone] ( Home)
--- NOTE | 2020-06-29 10:28 | ER ---
Nurse's Notes [facility] Name: Jemima Parmar Age: 30 yrs Sex: Female : 1990 Arrival Date: 06/29/2020 Time: 09:46 Bed Waiting Private MD: Diagnosis: Assessment: 06/29 10:26 Reassessment: pt told registration that the wait was too long. iw ED Course: 09:46 Patient arrived in ED. ag5 10:01 Brina Zaragoza FNP-C is PSYCHIATRIC. ramos 10:01 Armin Hager MD is Attending Physician. kb Administered Medications: No medications were administered Outcome: : Eloped from waiting room, Time discovered patient gone: June 29, 2020 at 10:26 iw 10:28 Patient left the ED. iw Signatures: Brina Zaragoza FNP-C FNP-Ckb Williams, Irene, MARÍA RN Varghese Smalls ag5
== END 2020-06-29 10:28 | disposition left against medical advice (07) ==
LOC: ER 09:44
DX: Z02.9 Encounter for administrative examinations, unspecified (principal)

== ENCOUNTER 2020-11-20 13:49 | Emergency (ER) | payer OTHER ==
--- OUTSIDE RECORDS SUMMARY | 2020-11-20 13:53 | XMS REPORT | Continuity of Care Document ---
:1990 Author Organization [facility] t Address [address] [place] [address] Care Team Providers Name Role Phone Pcp Primary Care Physician Unavailable Stanislaw BERNARD Attending Clinician Mack IBANEZ C Attending Clinician IRMA ARAUJO Attending Clinician Unavailable IRMA ARAUJO Admitting Clinician Unavailable Problems Condition Condition Condition Status Onset Resolution Last Treating Co mments Source Name Details Category Date Date Treatment Clinician Date Pneumothor Pneumothor Disease Active C HI [facility] ax ax 02-16 [facility] - 00:00: Medical 00 [place] Allergies, Adverse Reactions, Alerts This patient has no known allergies or adverse reactions. Family History Family Member Diagnosis Comments Start Date Stop Date Source Natural father Hypertension [facility] Maternal grandmother Colon cancer [facility] Maternal grandmother Lung cancer [facility] Natural mother Hypertension [facility] Social History Social Habit Start Date Stop Date Quantity Comments Source History SDOH [facility] - Alcohol Std Drinks [facility] History SDOH [facility] - Alcohol Binge [facility] Sex Assigned At [facility] Cigarettes smoked 2019-02-17 2019-02-17 [facility] - current (pack per 00:00:00 00:00:00 [facility] day) - Reported Cigarette 2019-02-17 2019-02-[address] [facility] - pack-years 00:00:00 00:00:00 [facility] Tobacco use and 2019-02-17 2019-02-[address] [facility] - exposure 00:00:00 00:00:00 [facility] Alcohol intake 2019-02-17 2019-02-[address] [facility] - 00:00:00 00:00:00 non-drinker of Medical Ce nter alcohol (finding) History SDOH 2019-02-16 2019-02-[address] [facility] - Alcohol Frequency 00:00:00 00:00:00 [facility] Tobacco Comment 2019-02-16 2019-02-16 e-cigs and vape [facility] - 00:00:00 00:00:[address] [facility] cigarettes History of tobacco 2019-01-10 [facility] sm[facility] use 00:00:00 [facility] Smoking Status Start Date Stop Date Source Former smoker 2019-02-17 00:00:00 2019-02-17 00:00:[address] [facility] - [facility] Medications This patient has no known medications. Procedures This patient has no known procedures. Plan of Care Planned Activity Planned Date Details Comments Source Future Scheduled 2026-07-09 DTAP/TDAP/TD VACCINES [facility] - Test 00:00:00 (2 - Td) [code = [facility] ter DTAP/TDAP/TD VACCINES (2 - Td)] Future Scheduled 2022-01-[address] - Test 00:00:[address] [facility] cervix (procedure) [code = 107434352] Future Scheduled 2021-04-[address] [facility] - Test 00:00:00 (Season Ended) [code Medical Center = INFLUENZA VACCINE (Season Ended)] Future Scheduled 2020-08-[address] [facility] - Test 00:00:00 (12+) [code = [facility] DEPRESSION SCREENING (12+)] Future Scheduled 2010 HEPATITIS C [facility]CRE[facility]ING [facility] - Test 00:00:00 [code = HEPATITIS C [facility] SCREENING] Encounters Start End Encounter Admission Attending Care Care Encounter Source Date/Time Date/Time Type Type Clinicians Facility Department ID 2020-09-06 2020-09-06 Emergency [facility] [id number] 13:53:00 15:52:00 [facility] [id number] [facility] [id number] [facility] [id number] [address] ([facility]) 2020-08-18 2020-08-18 Office Mack [facility] [id number] 14:38:58 15:09:27 Visit Jennifer [facility]em[facility] [id number] [facility] [id number] MATERNAL [id number] & CHILD [address] [place] [address] Results Test Description Test Time Test Comments Results Result [facility] e Comments TISSUE EXAM 2019-02-09 Surgical Pathology 5 Report 18:18:00 Case: [id number] Authorizing Provider: Luan Araujo Jr., Collected: 02/17/2019 0852 Ordering Location: [address] Received: 02/17/2019 0943 Pathologist: Jing Ch [...] REACTIVE CHANGECC/pl Signing Pathologist Direct Phone Line: [phone] ally signed by Jing Ch MD on 02/23/2019 at 6:18 PMThe overall findings are compatible with history of spontaneous pneumothorax. Recommend clinical correlation. [id number] x2, 516[address]Mig and postop diagnosis: Pneumothorax, rightA. 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 No gross lesions are identified. Educational Technology Specialist sections of the area of adhesion with [...] PATIENT VIEW, NON DEPT 2 exam:->CT ID: [id number] Exam: 13:07:00 removalShould this RAD, CHEST, 1 [...] MDReport Verified Date/Time: 02/20/2019 13:07:10 Reading Location: [facility] C013T [facility] Reading Room , CHEST, 1 2019-02-09 Reason for FINAL REPORT PATIENT VIEW, NON DEPT 2 exam:->pneumothora ID: [id number] Chest 05:26:00 xShould this be one view. [...] PATIENT VIEW, NON DEPT 1 exam:->pneomothora ID: [id number] 23:15:00 xShould this be EXAMINATION: AP performed [...] MDRroseannort Verified Date/Time: 02/19/2019 23:15:02 Reading Location: [address] Reading Room , CHEST, 1 2019-02-09 Reason for FINAL REPORT PATIENT VIEW, NON DEPT 1 exam:->CT to water ID: [id number] 13:31:00 sealShould this be TECHNIQUE: Frontal performed [...] MDReport Verified Date/Time: 02/19/2019 13:31:14 Reading Location: [facility] Reading Room ESIUM 2019-02-19 06:28:00 Test Item Value Reference Range Interpretation Comme nts MAGNESIUM (BEAKER) (test code = 627) 1.7 mg/dL 1.6-2.6 BASIC METABOLIC [id number] 06:28:00 Test Item Value Reference Range Interpretation [...] PATIEN TS. CBC W/PLT COUNT & AUTO [id number] 05:42:00 Test Item Value Reference Range Interpretation [...] = 2801) RAD, CHEST, 1 VIEW, NON [id number] 04:23:00Reason for exam:- >pneumothoraxShould this be performed [...] are unchanged. Signed: Dereje Elliott MDReport Verified Date/Time: 02/19/2019 04:23:03 Reading Location: [address] Reading Room CBC W/PLT COUNT & AUTO [id number] 13:24:00 Test Item Value Reference Range Interpretation [...] = 2801) RAD, CHEST, 1 VIEW, NON [id number] 04:39:00Reason for exam:- >pneumothoraxShould this be performed at the bedside?->YesFINAL REPORT CLINICAL INDICATION: Pneumothorax Comparison: 02/17/2019 at 1011 hours The cardiomediastinal contours are stable. Postsurgical changes are present in the right mid toupper lung. There is a stable right hydropneumothorax. Right chest tubes remain in place. Signed: Raciel Macias [facility] Verified Date/Time: 02/18/2019 04:39:20 Reading Location: [address] Reading Room RAD, CHEST, 1 VIEW, NON [id number] 10:34:00Reason for exam:->post opIs the patient ?->NoShould [...] MDReport Verified Date/Time: 02/17/2019 10:34:25 Reading Location: [facility] Radiology Reading Room [id number] 07:07:00 Test Item Value Reference Range Interpretation Comments PHOSPHORUS (BEAKER) 3.7 mg/dL 2.3-4.7 Specimen slightly (test code = 604) hemolyzed BASIC METABOLIC [id number] 07:07:00 Test Item Value Reference Range Interpretation [...] S NOT APPLICABLE FOR DIALYSIS PATIEN TS. [id number] 07:07:00 Test Item Value Reference Range Interpretation Comments MAGNESIUM (BEAKER) 1.8 mg/dL 1.6-2.6 Specimen slightly (test code = 627) hemolyzed CBC (HEMOGRAM ONLY)2019-02-17 06:36:00 Test Item Value [...] = 413) RAD, CHEST, 1 VIEW, NON [id number] 04:59:00Reason for exam:- >pneumothoraxShould this be performed at the bedside?->YesFINAL REPORT RAD, CHEST, 1 VIEW, NON DEPT INDICATION: pneumothorax COMPARISON: Prior day's exam FINDINGS: Portable frontal view of the chest. IMPRESSION: Lungs and pleura: Lungs are clear. No pleural effusion. Unchanged small right apical pneumothorax. No left pneumothorax.Heart and mediastinum: Stable contours. Additional findings: None. Signed: Destiny Cespedes [facility] Verified Date/Time: 02/17/2019 04:59:14 Reading Location: [address] Transitional Reading Room CT, CHEST, WITHOUT [id number] 02:53:00FINAL REPORT CLINICAL INDICATION: Shortness of breath, [...] Macias Verified Date/Time: 02/17/2019 02:53:00 Reading Location: [address] Reading Room PREGNANCY SCREEN, [id number] 23:45:00 Test Item Value Reference Range Interpretation Comments TEST URINE (BEAKER) (test Negative code = 583) RAD, CHEST, 1 VIEW, NON [id number] 22:03:00Reason for exam:- >pneumothoraxShould this be performed [...] There is no acute bony abnormality. Signed: Raceil Macias Verified Date/Time: 02/16/2019 22:03:20 Reading Location: [address] Reading Room
--- NOTE | 2020-11-20 14:42 | RAD REPORT ---
EXAM DESCRIPTION: CT - Head Brain Wo Cont - 11/20/2020 2:36 pm CLINICAL HISTORY: HEADACHE Headache, drowsiness COMPARISON: No comparisons TECHNIQUE: All CT scans are performed using dose optimization technique as appropriate and may inclu de automated exposure control or mA/KV adjustment according to patient size. FINDINGS: No intracranial hemorrhage, hydrocephalus or extra-axial fluid collection.No areas of brai n edema or evidence of midline shift. The paranasal sinuses and mastoids are clear. The calvarium is intact. IMPRESSION: No acute intracranial abnormality.
[2020-11-20 14:43] LABS: Absolute Lymphocytes (CBC) 2.1 K/uL (0.7-4.9); Basophils % 0.7 % (0-1.3); Lymphocytes % 28.9 % (15.3-44.8); RBC Red Blood Cell Count 4.38 M/uL (3.86-4.86)
[2020-11-20] MEDS ORDERED: METOCLOPRAMIDE 10 MG/2mL INJ ONE (14:49)
[2020-11-20] MEDS ORDERED: dexAMETHasone 10 MG/ML VIAL ONE (14:49)
[2020-11-20] MEDS ORDERED: DIPHENHYDRAMINE 50 MG/ML VIAL ONE (14:49)
[2020-11-20] MEDS ORDERED: NA CHLORIDE 0.9% 2,000 ML ONE (14:50)
[2020-11-20 14:55] LABS: BUN Blood Urea Nitrogen 12 mg/dL (7-18); Bicarbonate 30 mmol/L (21-32); Glucose Level 107 mg/dL (74-106); Sodium Level 140 mmol/L (136-145)
[2020-11-20 16:32] LABS: Urine Blood Negative (Negative); Urine Glucose Negative (Negative); Urine Protein Negative (Negative)
--- NOTE | 2020-11-20 16:35 | ER ---
Nurse's Notes [facility] Name: Jemima Parmar Age: 30 yrs Sex: Female : 1990 Arrival Date: 11/20/2020 Time: 13:49 Bed 18 Private MD: Diagnosis: Headache;Nausea;Dehydration;Exposure to excessive natural heat Presentation: 11/20 14:14 Chief complaint: Patient states: nausea for the last few days. Can tolerate fluids. bw Denies sick contacts. Coronavirus screen: At this time, unable to obtain information related to travel outside the [place] At this time, the client does not indicate any symptoms associated with coronavirus-19. Ebola Screen: No symptoms or risks identified at this time. Initial Sepsis Screen: Does the patient meet any 2 criteria? No. Patient's initial sepsis screen is negative. Does the patient have a suspected source of infection? No. Patient's initial sepsis screen is negative. Risk Assessment: Do you want to hurt yourself or someone else? Patient reports no desire to harm self or others. Onset of symptoms is unknown. 14:14 Method Of Arrival: Ambulatory bw 14:14 Acuity: DEJON 3 bw Triage Assessment: 14:18 General: Appears in no apparent distress. Behavior is calm, cooperative, appropriate bw for age. Pain: Denies pain. Neuro: No deficits noted. Cardiovascular: No deficits noted. Respiratory: No deficits noted. GI: Reports nausea, tolerance of fluids, tolerance of food. : No deficits noted. 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 - Social history:: Smoking status: unknown. Screenin:19 Abuse screen: Denies threats or abuse. Nutritional screening: No deficits noted. bw Tuberculosis screening: No symptoms or risk factors identified. 14:19 Fall Risk None identified. bw Assessment: 14:19 Reassessment: see triage assessment. GI: Abdomen is flat, non-distended. bw 15:10 Reassessment: Patient appears in no apparent distress at this time. Patient and/or bw family updated on plan of care and expected duration. Pain level reassessed. Patient is alert, oriented x 3, equal unlabored respirations, skin warm/dry/pink. 16:37 Reassessment: Patient appears in no apparent distress at this time. Patient and/or bw family updated on plan of care and expected duration. Pain level reassessed. Patient is alert, oriented x 3, equal unlabored respirations, skin warm/dry/pink. Vital Signs: 13:58 BP 119 / 81; Pulse 69; Resp 18; Temp 97.7(O); Pulse Ox 100% on R/A; Weight 54.43 kg jp3 (R); Height 5 ft. 7 in. (170.18 cm) (R); Pain 6/10; 15:10 BP 122 / 84; Pulse 71; Resp 18; Pulse Ox 99% on R/A; bw 13:58 Body Mass Index 18.79 (54.43 kg, 170.18 cm) jp3 ED Course: 13:49 Patient arrived in ED. ds1 13:51 Jennifer Marquez, MARÍA is Primary Nurse. bw 13:58 Zachariah Garcia NP is PHCP. pm1 13:58 Berlin Lynne MD is Attending Physician. pm1 13:59 Patient has correct armband on for positive identification. Placed in gown. Bed in low jp3 position. Call light in reach. Side rails up X 1. Warm blanket given. Verbal reassurance given. Pulse ox on. NIBP on. 13:59 Patient maintains SpO2 saturation greater than 95% on room air. jp3 14:16 Triage completed. bw 14:18 Arm band placed on right wrist. bw 14:19 No provider procedures requiring assistance completed. bw 14:26 Initial lab(s) drawn, by nh, sent to lab. Inserted saline lock: 20 gauge in right jp3 antecubital area, using aseptic technique. Blood collected. 14:36 CT Head Brain wo Cont In Process Unspecified. EDMS 16:37 IV discontinued, intact, bleeding controlled, Pressure dressing applied. bw Administered Medications: 14:46 Drug: Decadron - Dexamethasone 10 mg Route: IVP; Site: right antecubital; bw 16:42 Follow up: Response: No adverse reaction bw 14:46 Drug: Benadryl (diphenhydrAMINE) 12.5 mg Route: IVP; Site: right antecubital; bw 16:42 Follow up: Response: No adverse reaction bw 14:47 Drug: NS 0.9% 1000 ml Route: IV; Rate: 1000 ml; Site: right antecubital; bw 16:43 Follow up: IV Status: Completed infusion bw 14:47 Drug: NS 0.9% 1000 ml Route: IV; Rate: 1000 ml; Site: right antecubital; bw 16:43 Follow up: IV Status: Completed infusion bw 14:47 Drug: Reglan 10 mg Route: IVP; Site: right antecubital; bw 16:42 Follow up: Response: No adverse reaction Outcome: 16:34 Discharge ordered by . pm1 16:37 Discharged to home ambulatory. 16:37 Condition: stable 16:37 Discharge instructions given to patient. 16:46 Patient left the ED. Signatures: Dispatcher [employer] EDBelgica Osborne ds1 Zachariah Garcia NP RIGGING LOFT REPAIRER pm1 Kiko Lazaro jp3 Jennifer Marquez RN RN bw
--- NOTE | 2020-11-20 16:35 | EDPHYS ---
Physician Documentation [facility] Name: Jemima Parmar Age: 30 yrs Sex: Female : 1990 Arrival Date: 11/20/2020 Time: 13:49 Bed 18 Private MD: ED Physician Berlin Lynne HPI: 11/20 14:30 This 30 yrs old Female presents to ER via Ambulatory with complaints of pm1 Headache, Nausea. 14:31 The patient complains of pain to the left side of head. The patient describes the pm1 headache as aching, constant. 14:31 Onset: The symptoms/episode began/occurred today. Associated signs and symptoms: pm1 Pertinent positives: nausea. Severity of symptoms: in the emergency department the pain is unchanged. the symptoms are aggravated by possibly heat exposure this AM. [place] She woke up with nausea and left sided headache with left eye pain. . The patient has not experienced similar symptoms in the past. The patient has not recently seen a physician. 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 - Social history:: Smoking status: unknown. ROS: 14:31 Constitutional: Negative for fever, chills, and weight loss, Neck: Negative for injury, pm1 pain, and swelling, Cardiovascular: Negative for chest pain, palpitations, and edema, Respiratory: Negative for shortness of breath, cough, wheezing, and pleuritic chest pain. 14:31 Back: Negative for injury and pain, MS/Extremity: Negative for injury and deformity, Skin: Negative for injury, rash, and discoloration. 14:31 Abdomen/GI: Positive for nausea, Negative for abdominal pain, vomiting, diarrhea, constipation. 14:31 Neuro: Positive for headache, Negative for numbness, tingling, weakness. Exam: 14:31 Constitutional: This is a well developed, well nourished patient who is awake, alert, pm1 and in no acute distress. Head/Face: Normocephalic, atraumatic. 14:31 Back: No spinal tenderness. No costovertebral tenderness. Full range of motion. Skin: Warm, dry with normal turgor. Normal color with no rashes, no lesions, and no evidence of cellulitis. MS/ Extremity: Pulses equal, no cyanosis. Neurovascular intact. Full, normal range of motion. 14:31 Cardiovascular: Exam negative for acute changes, Rate: normal, Rhythm: regular, Pulses: no pulse deficits are appreciated. 14:31 Respiratory: Exam negative for acute changes, respiratory distress, shortness of breath. 14:31 Abdomen/GI: Exam negative for acute changes, Inspection: abdomen appears normal, Palpation: abdomen is soft and non-tender, in all quadrants. 14:31 Neuro: Exam negative for acute changes, Orientation: is normal, Mentation: is normal, Motor: is normal, moves all fours. Vital Signs: 13:58 BP 119 / 81; Pulse 69; Resp 18; Temp 97.7(O); Pulse Ox 100% on R/A; Weight 54.43 kg jp3 (R); Height 5 ft. 7 in. (170.18 cm) (R); Pain 6/10; 15:10 BP 122 / 84; Pulse 71; Resp 18; Pulse Ox 99% on R/A; bw 13:58 Body Mass Index 18.79 (54.43 kg, 170.18 cm) jp3 MDM: 13:58 Patient medically screened. pm1 15:25 Data reviewed: vital signs. Data interpreted: Pulse oximetry: on room air is 99 %. pm1 Interpretation: normal. ED course: Headache 10/19 . 16:20 Counseling: I had a detailed discussion with the patient and/or guardian regarding: the pm1 historical points, exam findings, and any diagnostic results supporting the discharge/admit diagnosis, lab results, the need for outpatient follow up, a neurologist, to return to the emergency department if symptoms worsen or persist or if there are any questions or concerns that arise at home. 11/20 14:13 Order name: CBC with Diff; Complete Time: 14:52 pm1 11/20 14:13 Order name: BMP; Complete Time: 15:16 pm1 11/20 14:18 Order name: CPK; Complete Time: 15:16 pm1 11/20 14:18 Order name: CT Head Brain wo Cont; Complete Time: 14:52 pm1 11/20 16:32 Order name: Urine Dipstick-Ancillary EDMS 11/20 16:34 Order name: Urine --Ancillary (enter results) eb 11/20 14:18 Order name: IV Saline Lock; Complete Time: 14:26 pm1 11/20 14:18 Order name: Urine Dipstick-Ancillary (obtain specimen); Complete Time: 16:25 pm1 11/20 14:18 Order name: Urine Test (obtain specimen); Complete Time: 16:25 pm1 Administered Medications: 14:46 Drug: Decadron - Dexamethasone 10 mg Route: IVP; Site: right antecubital; bw 16:42 Follow up: Response: No adverse reaction bw 14:46 Drug: Benadryl (diphenhydrAMINE) 12.5 mg Route: IVP; Site: right antecubital; bw 16:42 Follow up: Response: No adverse reaction bw 14:47 Drug: NS 0.9% 1000 ml Route: IV; Rate: 1000 ml; Site: right antecubital; bw 16:43 Follow up: IV Status: Completed infusion bw 14:47 Drug: NS 0.9% 1000 ml Route: IV; Rate: 1000 ml; Site: right antecubital; bw 16:43 Follow up: IV Status: Completed infusion bw 14:47 Drug: Reglan 10 mg Route: IVP; Site: right antecubital; bw 16:42 Follow up: Response: No adverse reaction bw Disposition: 17:31 Co-signature as Attending Physician, Berlin Lynne MD. rn Disposition: 11/20/20 16:34 Discharged to Home. Impression: Headache, Nausea, Dehydration, Exposure to excessive natural heat. - Condition is Stable. - Discharge Instructions: Dehydration, Adult, General Headache Without Cause, Heat Exhaustion Information, Rehydration, Adult. - Prescriptions for Fiorinal 50- 325-40 mg Oral Capsule - take 1 capsule by ORAL route every 4 hours As needed - not to exceed 6 capsules per day; 20 capsule. Zofran ODT 4 mg Oral tablet,disintegrating - place 1 tablet by TRANSLINGUAL route every 8 hours As needed; 12 tablet. - Medication Reconciliation Form, Thank You Letter, Antibiotic Education, Prescription Opioid Use form. - Follow up: Emergency Department; When: As needed; Reason: Worsening of condition. Follow up: Private Physician; When: 2 - 3 days; Reason: Recheck today's complaints, Continuance of care, Re-evaluation by your physician. - Problem is new. - Symptoms have improved. Signatures: Dispatcher [employer] EDMS Berlin Lynne MD MD rn Marinas, Patrick, YURI TECHNOLOGY RESOURCE TEACHER pm1 Jennifer Marquez RN RN bw Corrections: (The following items were deleted from the chart) 16:46 16:34 11/20/2020 16:34 Discharged to Home. Impression: Headache; Nausea; Dehydration; bw Exposure to excessive natural heat. Condition is Stable. Discharge Instructions: Dehydration, Adult, General Headache Without Cause, Rehydration, Adult, Heat Exhaustion Information. Prescriptions for Fiorinal 50-325-40 mg Oral Capsule - take 1 capsule by ORAL route every 4 hours As needed - not to exceed 6 capsules per day; 20 capsule, Zofran ODT 4 mg Oral tablet,disintegrating - place 1 tablet by TRANSLINGUAL route every 8 hours As needed; 12 tablet. and Forms are Medication Reconciliation Form, Thank You Letter, Antibiotic Education, Prescription Opioid Use. Follow up: Emergency Department; When: As needed; Reason: Worsening of condition. Follow up: Private Physician; When: 2 - 3 days; Reason: Recheck today's complaints, Continuance of care, Re-evaluation by your physician. Problem is new. Symptoms have improved. pm1
[2020-11-20 17:06] VITALS: TEMP 97.7
[2020-11-20 17:07] VITALS: BP 122/84; O2SAT 99
== END 2020-11-20 16:46 | disposition home or self-care (01) ==
LOC: ER 13:49
DX: E86.0 Dehydration (principal); R11.0 Nausea; X30.XXXA Exposure to excessive natural heat, initial encounter; Y93.89 Activity, other specified; Y92.832 Beach as the place of occurrence of the external cause
CPT/HCPCS: 96361; 85025; 80048; 36415; 82550; 81025; 81003; 70450; 96375; 96374; 99284; J2765; J1200; J1100; J7030

== ENCOUNTER 2020-12-01 10:15 | Emergency (ER) | payer OTHER ==
--- OUTSIDE RECORDS SUMMARY | 2020-12-01 10:18 | XMS REPORT | Continuity of Care Document ---
:[address] [facility] t Address [address] [place] [address] Care Team Providers Name Role Phone Pcp Primary Care Physician Unavailable Stanislaw BERNARD Attending Clinician Mack IBANEZ C Attending Clinician IRMA ARAUJO Attending Clinician Unavailable IRMA ARAUJO Admitting Clinician Unavailable Problems Condition Condition Condition Status Onset Resolution Last Treating Co mments Source Name Details Category Date Date Treatment Clinician Date Pneumothor Pneumothor Disease Active C HI St ax ax 02-16 [facility] - 00:00: Medical 00 [place] Allergies, Adverse Reactions, Alerts This patient has no known allergies or adverse reactions. Family History Family Member Diagnosis Comments Start Date Stop Date Source Natural father Hypertension [facility] Maternal grandmother Colon cancer [facility] Maternal grandmother Lung cancer [facility] Natural mother Hypertension [facility] Social History Social Habit Start Date Stop Date Quantity Comments Source History SDOH [facility] - Alcohol Std Drinks [facility] Center History SDOH [facility] - Alcohol Binge Medical [facility] Sex Assigned At [facility] Cigarettes smoked 2019-02-17 2019-02-17 [facility] - current (pack per 00:00:00 00:00:00 Medical Center day) - Reported Cigarette 2019-02-17 2019-02-[address] [facility] - pack-years 00:00:00 00:00:00 [facility] Tobacco use and 2019-02-17 2019-02-[address] [facility] - exposure 00:00:00 00:00:00 [facility] Alcohol intake 2019-02-17 2019-02-[address] [facility] - 00:00:00 00:00:00 non-drinker of Medical Ce nter alcohol (finding) History SDOH 2019-02-16 2019-02-[address] [facility] - Alcohol Frequency 00:00:00 00:00:00 [facility] Tobacco Comment 2019-02-16 2019-02-16 e-cigs and vape [facility] - 00:00:00 00:00:00 user when quitting [facility] cigarettes History of tobacco 2019-01-10 [facility] sm[facility] - use 00[facility]:00 [facility] Smoking Status Start Date Stop Date Source Former smoker 2019-02-17 00:00:00 2019-02-17 00:00:[address] [facility] Medications This patient has no known medications. Procedures This patient has no known procedures. Plan of Care Planned Activity Planned Date Details Comments Source Future Scheduled 2026-07-09 DTAP/TDAP/TD VACCINES [facility] - Test 00:00:00 (2 - Td) [code = [facility] ter DTAP/TDAP/TD VACCINES (2 - Td)] Future Scheduled 2022-01-[address] [facility] - Test 00:00:00 malignant neoplasm of [facility] cervix (procedure) [code = 907075110] Future Scheduled 2021-04-[address] [facility] - Test 00:00:00 (Season Ended) [code Medical Center = INFLUENZA VACCINE (Season Ended)] Future Scheduled 2020-08-[address] [facility] - Test 00:00:00 (12+) [code = [facility] DEPRESSION SCREENING (12+)] Future Scheduled 2010 HEPATITIS C [facility] - Test 00:00:00 [code = HEPATITIS C [facility] Center SCREENING] Encounters Start End Encounter Admission Attending Care Care Encounter Source Date/Time Date/Time Type Type Clinicians Facility Department ID 2020-09-06 2020-09-06 Emergency [facility] [id number] 13:53:00 15:52:00 [facility] [id number] [facility] [id number] [facility] [id number] [address] ([facility]) 2020-08-18 2020-08-18 Office Mack [facility] [id number] 14:38:58 15:09:27 Visit Jennifer Montemayor [employer] [id number] [facility] [id number] MATERNAL [id number] & CHILD [address] [place] [address] Results Test Description Test Time Test Comments Results Result [facility] e Comments TISSUE EXAM 2019-02-09 Surgical Pathology 5 Report 18:18:00 Case: [id number] Authorizing Provider: Luan Araujo Jr., Collected: 02/17/2019 0852 Ordering Location: [address] Received: 02/17/2019 0943 Pathologist: Jing Ch [...] REACTIVE CHANGECC/pl Signing Pathologist Direct Phone Line: [phone] ally signed by Jing Ch MD on 02/23/2019 at 6:18 PMThe overall findings are compatible with history of spontaneous pneumothorax. Recommend clinical correlation. [address] x2, [id number] and postop diagnosis: Pneumothorax, rightA. 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 No gross lesions are identified. Globe Tester sections of the area of adhesion with [...] PATIENT VIEW, NON DEPT 2 exam:->CT ID: [id number] Exam: 13:07:00 removalShould this RAD, CHEST, 1 [...] MDReport Verified Date/Time: 02/20/2019 13:07:10 Reading Location: [facility] C013T [facility] Reading Room , CHEST, 1 2019-02-09 Reason for FINAL REPORT PATIENT VIEW, NON DEPT 2 exam:->pneumothora ID: [id number] Chest 05:26:00 xShould this be one view. [...] PATIENT VIEW, NON DEPT 1 exam:->pneomothora ID: [id number] 23:15:00 xShould this be EXAMINATION: AP performed [...] MDRroseannort Verified Date/Time: 02/19/2019 23:15:02 Reading Location: [address] Reading Room , CHEST, 1 2019-02-09 Reason for FINAL REPORT PATIENT VIEW, NON DEPT 1 exam:->CT to water ID: [id number] 13:31:00 sealShould this be TECHNIQUE: Frontal performed [...] MDReport Verified Date/Time: 02/19/2019 13:31:14 Reading Location: [facility] Reading Room ESIUM 2019-02-19 06:28:00 Test Item Value Reference Range Interpretation Comme nts MAGNESIUM (BEAKER) (test code = 627) 1.7 mg/dL 1.6-2.6 BASIC METABOLIC [id number] 06:28:00 Test Item Value Reference Range Interpretation [...] PATIEN TS. CBC W/PLT COUNT & AUTO [id number] 05:42:00 Test Item Value Reference Range Interpretation [...] = 2801) RAD, CHEST, 1 VIEW, NON [id number] 04:23:00Reason for exam:- >pneumothoraxShould this be performed [...] MDReport Verified Date/Time: 02/19/2019 04:23:03 Reading Location: [address] Reading Room CBC W/PLT COUNT & AUTO [id number] 13:24:00 Test Item Value Reference Range Interpretation [...] = 2801) RAD, CHEST, 1 VIEW, NON [id number] 04:39:00Reason for exam:- >pneumothoraxShould this be performed at the bedside?->YesFINAL REPORT CLINICAL INDICATION: Pneumothorax Comparison: 02/17/2019 at 1011 hours The cardiomediastinal contours are stable. Postsurgical changes are present in the right mid toupper lung. There is a stable right hydropneumothorax. Right chest tubes remain in place. Signed: Raciel Macias [facility] Verified Date/Time: 02/18/2019 04:39:20 Reading Location: [address] Reading Room RAD, CHEST, 1 VIEW, NON [id number] 10:34:00Reason for exam:->post opIs the patient ?->NoShould [...] MDReport Verified Date/Time: 02/17/2019 10:34:25 Reading Location: [facility] Radiology Reading Room [id number] 07:07:00 Test Item Value Reference Range Interpretation Comments PHOSPHORUS (BEAKER) 3.7 mg/dL 2.3-4.7 Specimen slightly (test code = 604) hemolyzed BASIC METABOLIC [id number] 07:07:00 Test Item Value Reference Range Interpretation [...] S NOT APPLICABLE FOR DIALYSIS PATIEN TS. [id number] 07:07:00 Test Item Value Reference Range Interpretation [...] = 413) RAD, CHEST, 1 VIEW, NON [id number] 04:59:00Reason for exam:- >pneumothoraxShould this be performed at the bedside?->YesFINAL REPORT RAD, CHEST, 1 VIEW, NON DEPT INDICATION: pneumothorax COMPARISON: Prior day's exam FINDINGS: Portable frontal view of the chest. IMPRESSION: Lungs and pleura: Lungs are clear. No pleural effusion. Unchanged small right apical pneumothorax. No left pneumothorax.Heart and mediastinum: Stable contours. Additional findings: None. Signed: Destiny Cespedes [facility] Verified Date/Time: 02/17/2019 04:59:14 Reading Location: [address] Transitional Reading Room CT, CHEST, WITHOUT [id number] 02:53:00FINAL REPORT CLINICAL INDICATION: Shortness of breath, [...] Macias Verified Date/Time: 02/17/2019 02:53:00 Reading Location: [address] Reading Room PREGNANCY SCREEN, [id number] 23:45:00 Test Item Value Reference Range Interpretation Comments TEST URINE (BEAKER) (test Negative code = 583) RAD, CHEST, 1 VIEW, NON [id number] 22:03:00Reason for exam:- >pneumothoraxShould this be performed [...] Macias Verified Date/Time: 02/16/2019 22:03:20 Reading Location: [address] Reading Room
--- NOTE | 2020-12-01 10:46 | ER ---
Nurse's Notes [facility] Name: Jemima Parmar Age: 30 yrs Sex: Female : 1990 Arrival Date: 12/01/2020 Time: 10:16 Bed 17 Private MD: Iman Dent Diagnosis: Presentation: 12/01 10:20 Chief complaint: Patient states: nausea and vomiting "for a while now". aa5 10:20 Coronavirus screen: nausea, vomiting. Ebola Screen: Patient negative for fever greater aa5 than or equal to 101.5 degrees Fahrenheit, and additional compatible Ebola Virus Disease symptoms. Initial Sepsis Screen: Does the patient meet any 2 criteria? No. Patient's initial sepsis screen is negative. Does the patient have a suspected source of infection? No. Patient's initial sepsis screen is negative. Risk Assessment: Do you want to hurt yourself or someone else? Patient reports no desire to harm self or others. Onset of symptoms was November 2020. 10:20 Acuity: DEJON 3 aa5 10:20 Method Of Arrival: Ambulatory aa5 Historical: - Allergies: 10:16 No Known Allergies; aa5 - PMHx: 10:16 placenta stuck in uterus, pt bleeding after delivery, given two blood transfusion; aa5 Collapsed lung; Assessment: 10:21 General: Appears in no apparent distress. Behavior is calm, cooperative, appropriate tr6 for age, pt reports that she is here to receive blood work and COVID test to get in to a facility. Pain: Denies pain. Neuro: No deficits noted. Cardiovascular: No deficits noted. Respiratory: No deficits noted. GI: No deficits noted. : No deficits noted. EENT: No deficits noted. Derm: No deficits noted. Musculoskeletal: No deficits noted. Vital Signs: 10:20 BP 98 / 68; Pulse 79; Resp 20 S; Temp 98.1(O); Pulse Ox 100% on R/A; Weight 54.43 kg aa5 (R); Height 5 ft. 8 in. (172.72 cm) (R); 10:20 Body Mass Index 18.25 (54.43 kg, 172.72 cm) aa5 ED Course: 10:16 Patient arrived in ED. am2 10:16 Iman Dent is Private Physician. am2 10:20 Arm band placed on Patient placed in an exam room, on a stretcher. aa5 10:28 Bull Campbell PA is PHCP. jr8 10:28 Berlin Lynne MD is Attending Physician. jr8 10:30 Triage completed. aa5 Administered Medications: No medications were administered Outcome: 11:00 Patient left the ED. tr6 Signatures: Ely Rios RN RN aa5 Bull Campbell PA PA jr8 Deepthi Styles am2 Lori Verma RN RN tr6
--- NOTE | 2020-12-01 10:46 | EDPHYS ---
Physician Documentation [facility] Name: Jemima Parmar Age: 30 yrs Sex: Female : 1990 Arrival Date: 12/01/2020 Time: 10:16 Bed 17 Private MD: Iman Dent ED Physician Berlin Lynne HPI: 12/01 10:40 This 30 yrs old Female presents to ER via Ambulatory with complaints of jr8 Nausea. 10:40 Patient requests only lab work and results same day for HEP A, B, C, HIV, UPT to be jr8 able to check into rehab. After additional inquires on the labs capability, she found [facility] to be available and she left prior to visit continuation. . Historical: - Allergies: 10:16 No Known Allergies; aa5 - PMHx: 10:16 placenta stuck in uterus, pt bleeding after delivery, given two blood transfusion; aa5 Collapsed lung; Vital Signs: 10:20 BP 98 / 68; Pulse 79; Resp 20 S; Temp 98.1(O); Pulse Ox 100% on R/A; Weight 54.43 kg aa5 (R); Height 5 ft. 8 in. (172.72 cm) (R); 10:20 Body Mass Index 18.25 (54.43 kg, 172.72 cm) aa5 MDM: 10:29 Patient medically screened. jr8 Administered Medications: No medications were administered Disposition: 11:30 Co-signature as Attending Physician, Berlin Lynne MD. rn Disposition: 12/01/20 10:45 Patient left the facility after being seen by provider. - Patient left due to other. - Condition is Stable. Signatures: Berlin Lynne MD MD rn Calderon, Audri RN RN aa5 Bull Campbell PA PA jr8 Lori Verma RN RN tr6 Corrections: (The following items were deleted from the chart) 11:00 10:45 12/01/2020 10:45 Patient left the facility after being seen by provider. Reason tr6 stated they are leaving due to other. Condition is Stable. jr8
[2020-12-01 11:04] VITALS: BP 98/68; TEMP 98.1; O2SAT 100
[2020-12-01] MEDS ORDERED: METHYLPREDNISOLONE 125 MG INJ ONE (11:08)
[2020-12-01] MEDS ORDERED: LIDOCAINE 1% MPF 5 ML VIAL ONE (12:42)
== END 2020-12-01 11:00 | disposition left against medical advice (07) ==
LOC: ER 10:15
DX: Z02.2 Encounter for examination for admission to residential institution (principal); R11.0 Nausea; Z53.29 Procedure and treatment not carried out because of patient's decision for other reasons
CPT/HCPCS: 99281; J2930

== ENCOUNTER 2020-12-08 13:56 | Emergency (ER) | payer SELFPAY ==
--- OUTSIDE RECORDS SUMMARY | 2020-12-08 13:59 | XMS REPORT | Continuity of Care Document ---
:1990 Author Organization [facility] t Address [address] [place] [address] Care Team Providers Name Role Phone Pcp Primary Care Physician Unavailable Derek Donahue Attending Clinician Noe Bernardo DO Attending Clinician Stanislaw BERNARD Attending Clinician Sim Cary Attending Clinician IRMA ARAUJO Attending Clinician Unavailable IRMA ARAUJO Admitting Clinician Unavailable Payers Payer Name Policy Type Policy Effective Date Expiration Date Sour ce Number MEDICAID - [id number] 2019 [facility] MEDICAID MGD 00:00[facility]00 [facility] [id number]/8/ 2019-PresentMedic aid Contracted Problems Condition Condition Condition Status Onset Resolution Last Treating Co mments Source Name Details Category Date Date Treatment Clinician Date Pneumothor Pneumothor Disease Active C HI [facility] ax ax 02-16 [facility] - 00:00: Medical 00 Center Allergies, Adverse Reactions, Alerts This patient has no known allergies or adverse reactions. Family History Family Member Diagnosis Comments Start Date Stop Date Source Natural father Hypertension [facility] Maternal grandmother Colon cancer [facility] I [facility] Maternal grandmother Lung cancer [facility] Natural mother Hypertension [facility] Social History Social Habit Start Date Stop Date Quantity Comments Source History [facility] - Alcohol Std Drinks [facility] History [facility] - Alcohol Binge Medical [facility] ter Sex Assigned At [facility] Cigarettes smoked 2019-02-17 2019-02-[address] [facility] - current (pack per 00:00:00 00:00:00 [facility] day) - Reported Cigarette 2019-02-17 2019-02-[address] [facility] - pack-years 00:00:00 00:00:00 [facility] Tobacco use and 2019-02-17 2019-02-17 Never used [facility] - exposure 00:00:00 00:00:00 [facility] Alcohol intake 2019-02-17 2019-02-[address] [facility] - 00:00:00 00:00:00 non-drinker of Medical Ce nter alcohol (finding) History [facility] 2019-02-16 2019-02-[address] [facility] - Alcohol Frequency 00:00:00 00:00:00 [facility] Tobacco Comment 2019-02-16 2019-02-16 e-cigs and vape [facility] - 00:[facility]:00 00:00:00 user when quitting [facility] cigarettes History of tobacco 2019-01-[address] [facility] - use 00:00:00 [facility] Smoking Status Start Date Stop Date Source Former smoker 2019-02-17 00:00:00 2019-02-17 00:00:00 [facility] Medications This patient has no known medications. Procedures This patient has no known procedures. Plan of Care Planned Activity Planned Date Details Comments Source Future Scheduled 2026-07-09 DTAP/TDAP/TD VACCINES [facility] - Test 00:00:00 (2 - Td) [code = Medical Stan ter DTAP/TDAP/TD VACCINES (2 - Td)] Future Scheduled 2022-01-[address] [facility] - Test 00:00:00 malignant neoplasm of [facility] cervix (procedure) [code = 086606583] Future Scheduled 2021-04-[address] [facility] - Test 00:00:00 (Season Ended) [code Medical Center = INFLUENZA VACCINE (Season Ended)] Future Scheduled 2020-08-[address] [facility] - Test 00:00:00 (12+) [code = Medical Center DEPRESSION SCREENING (12+)] Future Scheduled 2010 HEPATITIS C [facility]CRE[facility]ING [facility] - Test 00:00:00 [code = HEPATITIS C Medical Center SCREENING] Encounters Start End Encounter Admission Attending Care Care Encounter Source Date/Time Date/Time Type Type Clinicians Facility Department ID 2020-12-02 2020-12-02 Emergency [facility] [id number] 13:36:00 16:09:00 Pattie Noe [place] [id number] [place] 4.2.7.2.686 [place] [id number] 2020-09-06 2020-09-06 Emergency [facility] [id number] 13:53:00 15:52:00 [facility] [id number] [facility] [id number] [facility] [id number] [address] ([facility]) 2020-08-18 2020-08-18 Office [facility] [id number] 14:38:58 15:09:27 Visit 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 [id number] [facility] [id number] MATERNAL [id number] & CHILD [address] [place] [address] Results Test Description Test Time Test Comments Results Result [facility] e Comments TISSUE EXAM 2019-02-09 Surgical Pathology 5 Report 18:18:00 Case: [id number] Authorizing Provider: Luan Araujo Jr., Collected: 02/17/2019 [id number] Ordering Location: [address] Received: 02/17/2019 0943 Pathologist: Jing Ch [...] REACTIVE CHANGECC/pl Signing Pathologist Direct Phone Line: [phone] ally signed by Jing Ch MD on 02/23/2019 at 6:18 PMThe overall findings are compatible with history of spontaneous pneumothorax. Recommend clinical correlation. 95594 x2, [id number] and postop diagnosis: Pneumothorax, rightA. 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 No gross lesions are identified. Lawn Mower Sharpener sections of the area of adhesion with [...] PATIENT VIEW, NON DEPT 2 exam:->CT ID: [id number] Exam: 13:07:00 removalShould this RAD, CHEST, 1 [...] Cardozo Verified Date/Time: 02/20/2019 13:07:10 Reading Location: [address] Transitional Reading Room , CHEST, 1 2019-02-09 Reason for FINAL REPORT PATIENT VIEW, NON DEPT 2 exam:->pneumothora ID: [id number] Chest 05:26:00 xShould this be one view. [...] PATIENT VIEW, NON DEPT 1 exam:->pneomothora ID: [id number] 23:15:00 xShould this be EXAMINATION: AP performed [...] Signed: Dereje Elliott MDReport Verified Date/Time: 02/19/2019 23:15:02 Reading Location: [address] Reading Room , CHEST, 1 2019-02-09 Reason for FINAL REPORT PATIENT VIEW, NON DEPT 1 exam:->CT to water ID: [id number] 13:31:00 sealShould this be TECHNIQUE: Frontal performed [...] MDReport Verified Date/Time: 02/19/2019 13:31:14 Reading Location: [facility] Reading Room ESIUM 2019-02-19 06:28:00 Test Item Value Reference Range Interpretation Comme nts MAGNESIUM (BEAKER) (test code = 627) 1.7 mg/dL 1.6-2.6 BASIC METABOLIC [id number] 06:28:00 Test Item Value Reference Range Interpretation [...] PATIEN TS. CBC W/PLT COUNT & AUTO [id number] 05:42:00 Test Item Value Reference Range Interpretation [...] = 2801) RAD, CHEST, 1 VIEW, NON [id number] 04:23:00Reason for exam:- >pneumothoraxShould this be performed [...] MDReport Verified Date/Time: 02/19/2019 04:23:03 Reading Location: [address] Reading Room CBC W/PLT COUNT & AUTO [id number] 13:24:00 Test Item Value Reference Range Interpretation [...] = 2801) RAD, CHEST, 1 VIEW, NON [id number] 04:39:00Reason for exam:- >pneumothoraxShould this be performed at the bedside?->YesFINAL REPORT CLINICAL INDICATION: Pneumothorax Comparison: 02/17/2019 at 1011 hours The cardiomediastinal contours are stable. Postsurgical changes are present in the right mid toupper lung. There is a stable right hydropneumothorax. Right chest tubes remain in place. Signed: Raciel Macias MDReport Verified Date/Time: 02/18/2019 04:39:20 Reading Location: [address] Reading Room RAD, CHEST, 1 VIEW, NON [id number] 10:34:00Reason for exam:->post opIs the patient ?->NoShould [...] MDReport Verified Date/Time: 02/17/2019 10:34:25 Reading Location: [facility] Radiology Reading Room [id number] 07:07:00 Test Item Value Reference Range Interpretation Comments MAGNESIUM (BEAKER) 1.8 mg/dL 1.6-2.6 Specimen slightly (test code = 627) hemolyzed [id number] 07:07:00 Test Item Value Reference Range Interpretation Comments PHOSPHORUS (BEAKER) 3.7 mg/dL 2.3-4.7 Specimen slightly (test code = 604) hemolyzed BASIC METABOLIC [id number] 07:07:00 Test Item Value Reference Range Interpretation [...] = 413) RAD, CHEST, 1 VIEW, NON [id number] 04:59:00Reason for exam:- >pneumothoraxShould this be performed [...] MDReport Verified Date/Time: 02/17/2019 04:59:14 Reading Location: [facility] C013[facility] Reading Room CT, CHEST, WITHOUT [id number] 02:53:00FINAL REPORT CLINICAL INDICATION: Shortness of breath, [...] MDReport Verified Date/Time: 02/17/2019 02:53:00 Reading Location: [address] Reading Room PREGNANCY SCREEN, [id number] 23:45:00 Test Item Value Reference Range Interpretation Comments TEST URINE (BEAKER) (test Negative code = 583) RAD, CHEST, 1 VIEW, NON [id number] 22:03:00Reason for exam:- >pneumothoraxShould this be performed [...] MDReport Verified Date/Time: 02/16/2019 22:03:20 Reading Location: [address] Reading Room
--- NOTE | 2020-12-08 18:44 | ER ---
Nurse's Notes [facility] Name: Jemima Parmar Age: 30 yrs Sex: Female : 1990 Arrival Date: 12/08/2020 Time: 13:58 Bed Waiting Private MD: Diagnosis: Presentation: 12/08 14:03 Chief complaint: Patient states: i got this blister yesterday on my LEFT foot on the tw2 side and it is swollen and red and hurting, also on my right foot there is a spot too, also i am coughing for 2 days and i feel like i have bronchitis pt states it is the boots she is wearing. Coronavirus screen: cough unrelated to allergies, Client presents with at least one sign or symptom that may indicate coronavirus-19. Standard/surgical mask placed on the client. Provider contacted for isolation considerations. Ebola Screen: Patient denies travel to an Ebola-affected area in the 21 days before illness onset. Initial Sepsis Screen: Does the patient meet any 2 criteria? No. Patient's initial sepsis screen is negative. Does the patient have a suspected source of infection? No. Patient's initial sepsis screen is negative. Risk Assessment: Do you want to hurt yourself or someone else? Patient reports no desire to harm self or others. Onset of symptoms was December 08, 2020. 14:03 Method Of Arrival: Wheelchair tw2 14:03 Acuity: DEJON 3 tw2 Triage Assessment: 14:06 General: Appears in no apparent distress. slender, Behavior is calm, cooperative, tw2 appropriate for age. Pain: Complains of pain in right foot and left foot. Respiratory: Reports cough that is non-productive, persistent. Historical: - Allergies: 14:06 No Known Allergies; tw2 - Home Meds: 14:06 None [Active]; tw2 - PMHx: 14:06 COLLAPSED LUNG; placenta stuck in uterus, pt bleeding after delivery, given two blood tw2 transfusion; - PSHx: 14:06 None; tw2 - Immunization history:: Adult Immunizations unknown, Last tetanus immunization: unknown. - Social history:: Smoking status: Patient reports the use of cigarette tobacco products, smokes one-half pack cigarettes per day. Assessment: 18:38 Reassessment: called from ER lobby to exam room. No answer. 18:42 Reassessment: called from ER [facility]. No answer. Unable to locate patient. ss Vital Signs: 14:03 BP 95 / 67; Pulse 82; Resp 17; Temp 97.8(TE); Pulse Ox 100% on R/A; Weight 54.43 kg tw2 (R); Height 5 ft. 8 in. (172.72 cm) (R); Pain 8/10; 14:03 Body Mass Index 18.25 (54.43 kg, 172.72 cm) tw2 ED Course: 13:58 Patient arrived in ED. ds1 14:05 Triage completed. tw2 14:06 Arm band placed on. tw2 18:35 Nawaf Stevens PA is PHCP. cp 18:35 Armin Hager MD is Attending Physician. cp Administered Medications: No medications were administered Outcome: 18:43 Eloped from waiting room. ss 18:43 Patient left the ED. ss Signatures: Belgica Contreras ds1 Cheri Briseno RN RN Nawaf Stevens PA PA cp Nettie Arellano RN RN tw2
[2020-12-08 18:54] VITALS: BP 95/67; TEMP 97.8; O2SAT 100
== END 2020-12-08 18:43 | disposition left against medical advice (07) ==
LOC: ER 13:56
DX: Z53.21 Procedure and treatment not carried out due to patient leaving prior to being seen by health care provider (principal)
CPT/HCPCS: 99281

== ENCOUNTER 2023-02-25 11:27 | Emergency (ER) | payer OTHER ==
--- NOTE | 2023-02-25 17:34 | ER ---
Nurse's Notes [facility] Name: Jemima Parmar Age: 32 yrs Sex: Female : 1990 Arrival Date: 02/25/2023 Time: 11:27 Bed IW1 Private MD: Diagnosis: Encounter for screening for dental disorders Assessment: 02/25 11:59 Reassessment: Seen by MARCO ANTONIO Yost. Left before triage and without discharge ll1 instructions. ED Course: 11:28 Patient arrived in ED. am2 11:28 Brina Zaragoza [facility]-C [facility] kb 11:28 Berlin Lynne MD is Attending Physician. kb Administered Medications: No medications were administered Outcome: :59 Discharge ordered by . kb 12:48 Patient left the ED. ll1 Signatures: Brina Zaragoza FNP-C FNP-Deepthi Lopez am2 Manuel Mcintyre, RN RN ll1
--- NOTE | 2023-02-25 17:34 | EDPHYS ---
Physician Documentation [facility] Name: Jemima Parmar Age: 32 yrs Sex: Female : 1990 Arrival Date: 02/25/2023 Time: 11:27 Bed IW1 Private MD: ED Physician Berlin Lynne HPI: 02/25 11:57 This 32 yrs old Female presents to ER via Unassigned with complaints of Jaw kb Pain - infection. 11:57 Pt presented for jaw and tooth pain, concerned for an infection. I introduced myself at the registration window and informed pt that we would pull her into triage shortly to perform an exam and get more information. Pt elected to leave shortly after taking a seat in the lobby. ROS: 11:56 Unable to obtain ROS due to pt elected to leave from lobby prior to full evaluation and kb ROS. 12:01 Constitutional: . kb Exam: 11:56 Constitutional: This is a well developed, well nourished patient who is awake, alert, kb and in no acute distress. Respiratory: Respirations even and unlabored. No increased work of breathing. Talking in full sentences Skin: Warm, dry with normal turgor. Normal color. Neuro: Awake and alert, GCS 15. Moves all extremities. Normal gait. MDM: 11:30 Patient medically screened. kb 12:00 Data reviewed: old medical records. kb Administered Medications: No medications were administered Disposition: 12:51 Co-signature as Attending Physician, Berlin Lynne MD I reviewed the patient's care rn provided by the Advanced Practice Provider and agree with the diagnosis and treatment plan. Disposition Summary: 02/25/23 11:59 Discharge Ordered Location: Home kb Condition: Stable kb Diagnosis - Encounter for screening for dental disorders kb Followup: kb - With: Emergency Department - When: As needed - Reason: Worsening of condition Followup: kb - With: Private Physician - When: 2 - 3 days - Reason: Recheck today's complaints, Continuance of care, Re-evaluation by your physician Forms: - Medication Reconciliation Form kb - Thank You Letter kb - Antibiotic Education kb - Prescription Opioid Use kb - Patient Portal Instructions kb Signatures: Brina Zaragoza, MASTER BAKER-C MASTER BAKER-Ckb Berlin Lynne MD MD rn patient care: (The following items were deleted from the chart) 12:01 12:00 Constitutional: Negative for fever, chills, and weight loss, kb kb
--- OUTSIDE RECORDS SUMMARY | 2023-02-25 17:42 | XMS REPORT | Continuity of Care Document ---
:1990 Author Organization [facility] t Address [address] [facility] [address] [place] [address] Care Team Providers Name Role Phone Pcp , Kelly Primary Care Physician Unavailable [place] MASTERS Attending Clinician Unavailable Cleveland Masters DO Attending Clinician Julieta Loomis Attending Clinician Unavailable PATTIE CARNEY Attending Clinician Unavailable Pattie Carney DO Attending Clinician PENNY SHERWOOD Attending Clinician Unavailable Jay Mitchell Attending Clinician Ian Dc MD Attending Clinician Kenny Bo Attending Clinician Tom VALVERDE, Susan [place] Attending Clinician Melania WELCH, Reina Kapoor Attending Clinician Seamus Donahue Attending Clinician Rojelio Zee Attending Clinician ROJELIO SOTO Attending Clinician Unavailable MAYRA GIRON Attending Clinician Unavailable Mayra Cary Attending Clinician [phone] Roseanna DANIEL, Gail Coe Attending Clinician Unavailable Doctor Unassigned, [place] Attending Clinician Unavailable Penny Baker [facility]ician Unavailable RADHA ARAUJO Attending Clinician Unavailable ROJELIO SOTO Admitting Clinician Unavailable RADHA ARAUJO Admitting Clinician Unavailable Payers Payer Name Policy Type Policy Number Effective Date Expiration Date [place] [facility] [id number] 2019 00:00:00 Problems Condition Condition Condition Status Onset Resolution Last Treating Co mments Source Name Details Category Date Date Treatment Clinician Date Underweigh Underweigh Disease Active 2019-08 U nivers t t 0-20 ity of 00:00: [facility] Tobacco Tobacco Disease Active 2019-08 Univers use use 0-20 ity of disorder disorder 00:00: [place] [facility] Disease Active Univers control control 7-23 [place] [facility] IUD IUD Disease Active Univers (intrauter (intrauter 7-23 it y of ine ine 00:00: [place] device) in device) in [address] Branch Pneumothor Pneumothor Disease Active [facility] Alopecia Alopecia Disease Active Overview: Un gaurang 5-16 Formattin ity of 00:00: g of this 00 note Medical might be Branch different from the original. Reports may be genetic, her grandmoth er has it as well Other Other Disease Active 2018- Univers depression depression 5-16 it y of 00:00: [place] [facility] UTI UTI Disease Active 2016-08 Univers symptoms symptoms 0-26 ity of 00:00: Medical Branch Disruption Disruption Disease Active U nivers of of 6-14 ity of perineal perineal 00:00: [place] wound, wound, 00 Medical Br anch Nexplanon Nexplanon Disease Active Overview: Univers removal removal 12-06 Formattin ity o f 00:00: g of this [place] 00 note Medical might be Branch different from the original. Placed in 11/2016 Encounter Encounter Disease Active Uni vers for other for other 3-21 [place]y of contracept [place]pt [place] puneet puneet 00 Medical management management Br anch Allergies, Adverse Reactions, Alerts Allergy Allergy Status Severity Reaction(s) Onset Inactive Treating Comm ents Source Name Type Date Date Clinician No Known DA Active U [facility] Drug 8-30 Allergie 00:00: s 00 NO KNOWN Drug Active Univers ALLERGIE Class ity of S [facility] [facility] Family History Family Member Diagnosis Comments Start Date Stop Date Source Natural father Hypertension [facility] Maternal grandmother Colon cancer [facility] Maternal grandmother Lung cancer [facility] Natural mother Hypertension [facility] Social History Social Habit Start Date Stop Date Quantity Comments Source History of tobacco 2007-12-26 Cigarette Smoker University of use 00:00:00 [facility] History SDOH [facility] Alcohol Std Drinks Medica l Center History SDOH [facility] Alcohol Binge Medical Stan ter History SDOH [facility] Alcohol Comment Medical C enter Exposure to 2022-02-26 2022-03-08 Not sure University of SARS-CoV-2 (event) 00:00:00 10:26:00 [facility] [facility] Tobacco use and 2020-05-31 2020-05-31 Smokeless tobacco Un iversity of exposure 00:00:00 00:00:00 non-user [facility] Alcohol intake 2019-02-17 2019-02-[address] [facility] 00:[facility]00 00:00:00 non-drinker of Medical Ce nter alcohol (finding) History SDOH 2019-02-17 2019-02-[address] [facility] Alcohol Frequency 00:00:00 00:00:00 [facility] Tobacco Comment 2019-02-16 2019-02-16 e-cigs and vape [facility] 00:00:00 00:00:00 user when [facility] quitting cigarettes Cigarettes smoked 2019-02-16 2019-02-[address] [facility] current (pack per 00:00:00 00:00:00 Medical Center day) - Reported Cigarette 2019-02-16 2019-02-16 PATT Woodward pack-years 00:00:00 00:00:00 [facility] Sex Assigned At [birth year] PATT Braswells 00:00:00 00:00:00 [facility] Smoking Status Start Date Stop Date Source Smokes tobacco daily 2020-05-31 00:00:00 Univers ity of [facility] [facility] Former smoker 2019-02-16 00:00:00 2019-02-16 00:00:00 [facility] Medications Ordered Filled Start Stop Current Ordering Indication Dosage Frequency Signature Comments Components Source Medication Medication Date Date Medication? Clinician (SIG) Name Name cefTRIAXone 2020- No 1000mg 1,000 mg, Univers (ROCEPHIN) 04-18 IV ity of 1,000 mg in 04:30: 16:29 [place], [place] NaCl 0.9% 00 :00 ONCE, 1 Medical (NS) 50 mL dose, Mon Bran ch MINI-BAG 04/17/21 at 2330, Administer over 30 Minutes, 50 mL
Reas on for Anti-Infec tive: Documented Infection< br>Documen randy Infection Site: Urine
D uration of Therapy: 7 days cefTRIAXone 2020- No 1000mg 1,000 mg, Univers (ROCEPHIN) 04-18 IV ity of 1,000 mg in 04:30: 16:29 [place], [place] NaCl 0.9% 00 :00 ONCE, 1 Medical (NS) 50 mL dose, Mon Bran ch MINI-BAG 04/17/21 at 2330, Administer over 30 Minutes, 50 mL
Reas on for Anti-Infec tive: Documented Infection< br>Documen randy Infection Site: Urine
D uration of Therapy: 7 days NaCl 0.9% 2020- No 1000mL at 999 Uni vers (NS) bolus 04-18 mL/hr, ity of infusion 01:15: 03:51 1,000 mL, Gt as 1,000 mL 00 :00 IV Medical [facility] ONCE, 1 dose, 04/17/21 at 2015, STAT NaCl 0.9% 2020- No 1000mL at 999 Uni vers (NS) bolus 04-18 mL/hr, ity of infusion 01:15: 03:51 1,000 mL, Gt as 1,000 mL 00 :00 IV Medical [facility] [place] ONCE, 1 dose, 04/17/21 at 2015, STAT cefdinir 2020-2020- No [id number] 300mg Take 1 Univers 300 mg 04-17 capsule by ity of capsule 00:00: 04:59 mouth 2 [place] 00 :00 (two) Medical times Branch daily for 7 days. cefdinir 2020- No [id number] 300mg Take 1 Univers 300 mg 04-17 capsule by ity of capsule 00:00: 04:59 mouth 2 [place] 00 :00 (two) Medical times [place] daily for 7 days. clindamycin 2020- No [id number] 300mg Take 1 Univers 300 mg 04-15 [id number] capsule by ity of capsule 00:00: 04:59 mouth 4 [place] 00 :00 (four) Medical times [place] daily for 10 days. clindamycin 2020- No [id number] 300mg Take 1 Univers 300 mg 04-15 [id number] capsule by ity of capsule 00:00: 04:59 mouth 4 [place] 00 :00 (four) Medical times [place] daily for 10 days. clindamycin 2020- No [id number] 300mg Take 1 Univers 300 mg 04-15 [id number] capsule by ity of capsule 00:00: 04:59 mouth 4 [place] 00 :00 (four) Medical times Branch daily for 10 days. clindamycin 2020- No [id number] 300mg Take 1 Univers 300 mg 04-15 [id number] capsule by ity of capsule 00:00: 04:59 mouth 4 [place] 00 :00 (four) Medical times Branch daily for 10 days. cefTRIAXone 2020-2020- No 1000mg 1,000 mg, Univers (ROCEPHIN) 03-17 IV ity of 1,000 mg in 07:00: 06:39 [place] NaCl 0.9% 00 :00 ONCE, 1 Medical (NS) 50 mL dose, Fri MINI-BAG 03/17/21 at 0200, Administer over 30 Minutes, 50 mL
Reas on for Anti-Infec tive: Documented Infection< br>Documen randy Infection Site: Urine
D uration of Therapy: 7 days ondansetron 2020- No 4mg 4 mg, Slow Univers (ZOFRAN 03-17 08-06 IV Push, ity of (PF)) 06:00: 05:50 ONCE, 1 [place] injection 4 00 :00 dose, Fri Med ical mg 03/17/21 at Branch 0100, [place] NaCl 0.9% 2020- No 1000mL at 999 Uni vers (NS) bolus 03-17 08-06 mL/hr, ity of infusion 06:00: 07:00 1,000 mL, Gt as 1,000 mL 00 :00 IV Medical Infusion, Branch ONCE, 1 dose, 03/17/21 at 0100, STAT ibuprofen Yes [id number] 600mg Take 1 U nivers 600 mg 8-06 tablet by ity of tablet 00:00: mouth [place] 00 every 6 Medical (six) Branch hours as needed for Pain (scale 4-6). ondansetron Yes [id number] 4mg Take 1 Univers (ZOFRAN 8-06 tablet by ity of ODT) 4 mg 00:00: mouth [place] disintegrat 00 every 8 Medic al ing tablet (eight) Branch hours as needed for Nausea and Vomiting (N/V). ibuprofen Yes [id number] 600mg Take 1 U nivers 600 mg 8-06 tablet by ity of tablet 00:00: mouth [place] 00 every 6 Medical (six) Branch hours as needed for Pain (scale 4-6). ondansetron 0 Yes [id number] 4mg Take 1 Univers (ZOFRAN 8-06 tablet by ity of ODT) 4 mg 00:00: mouth [place] disintegrat 00 every 8 Medic al ing tablet (eight) Branch hours as needed for Nausea and Vomiting (N/V). ibuprofen 0 Yes [id number] 600mg Take 1 U nivers 600 mg 8-06 tablet by ity of tablet 00:00: mouth [place] 00 every 6 Medical (six) Branch hours as needed for Pain (scale 4-6). ondansetron 2021-0 Yes [id number] 4mg Take 1 Univers (ZOFRAN 8-06 tablet by ity of ODT) 4 mg 00:00: mouth [place] disintegrat 00 every 8 Medic al ing tablet (eight) Branch hours as needed for Nausea and Vomiting (N/V). ibuprofen 2020-0 Yes [id number] 600mg Take 1 U nivers 600 mg 8-06 tablet by ity of tablet 00:00: mouth [place] 00 every 6 Medical (six) Branch hours as needed for Pain (scale 4-6). ondansetron 2020-0 Yes [id number] 4mg Take 1 Univers (ZOFRAN 8-06 tablet by ity of ODT) 4 mg 00:00: mouth [place] disintegrat 00 every 8 Medic al ing tablet (eight) Branch hours as needed for Nausea and Vomiting (N/V). ibuprofen 2020-0 Yes [id number] 600mg Take 1 U nivers 600 mg 8-06 tablet by ity of tablet 00:00: mouth [place] 00 every 6 Medical (six) Branch hours as needed for Pain (scale 4-6). ondansetron 2020-0 Yes [id number] 4mg Take 1 Univers (ZOFRAN 8-06 tablet by ity of ODT) 4 mg 00:00: mouth [place] disintegrat 00 every 8 Medic al ing tablet (eight) Branch hours as needed for Nausea and Vomiting (N/V). ibuprofen 2020-0 Yes [id number] 600mg Take 1 U nivers 600 mg 8-06 tablet by ity of tablet 00:00: mouth [place] 00 every 6 Medical (six) Branch hours as needed for Pain (scale 4-6). ondansetron 1-0 Yes [id number] 4mg Take 1 Univers (ZOFRAN 8-06 tablet by ity of ODT) 4 mg 00:00: mouth [place] disintegrat 00 every 8 Medic al ing tablet (eight) Branch hours as needed for Nausea and Vomiting (N/V). ibuprofen 202-0 Yes [id number] 600mg Take 1 U nivers 600 mg 8-06 tablet by ity of tablet 00:00: mouth [place] 00 every 6 Medical (six) Branch hours as needed for Pain (scale 4-6). ondansetron 2021-0 Yes [id number] 4mg Take 1 Univers (ZOFRAN 8-06 tablet by ity of ODT) 4 mg 00:00: mouth [place] disintegrat 00 every 8 Medic al ing tablet (eight) Branch hours as needed for Nausea and Vomiting (N/V). cephALEXin No [id number] 500mg Take 1 Univers (KEFLEX) 03-17 capsule by ity of 500 mg 00:00: 04:59 mouth 3 [place] capsule 00 :00 (three) Medical times Branch daily for 10 days. ondansetron 2020- No [id number] 4mg Take 1 Univers (ZOFRAN 03-17 tablet by ity of ODT) 4 mg 00:00: 00:00 mouth [place] disintegrat 00 :00 every 8 Medic al ing tablet (eight) Branch hours as needed for Nausea and Vomiting (N/V). NaCl 0.9% Yes 1000mL at 999 Univ ers (NS) IV 6-04 mL/hr, ity of infusion 05:30: Intravenou Gt as 1,000 mL 00 s, Medical CONTINUOUS Branch , Starting 01/13/21 at 0030, Until Discontinu ed, Routine metoclopram No 10mg 10 mg, Uni vers emile HCl 01-13 06-04 Slow IV ity of (REGLAN) 05:30: 04:40 [place], [place] injection 00 :00 ONCE, 1 Medical 10 mg dose, Fri Branch 01/13/21 at 0030, REYMUNDO ketorolac 2020- No 30mg 30 mg, Unive rs (TORADOL) 01-13 06-04 Slow IV ity of injection 05:30: 04:40 [place], [place] 30 mg 00 :00 ONCE, 1 Medical dose, Fri Branch 01/13/21 at 0030, Routine
crew member approving Restricted medication : SUSAN SANTOS S sodium Yes 5mL 5 mL, Univers chloride 04 Intravenou ity o f (NS) 03:19: s, PRN, [place] injection 5 37 Starting Medi shonna mL Mary 01/12/21 Branch at 2219, Until Discontinu ed, Routine, IV line flushing hydrOXYzine 2020- No 25mg 25 mg, Uni vers (ATARAX) 530 05-30 Oral, ity of tablet 25 01:00: 00:15 ONCE, 1 [place] mg 00 :00 dose, Sat Medical 01/07/21 at Branch 1999, REYMUN[place] ondansetron 2020-0 2020- No 4mg 4 mg, Univ ers (ZOFRAN-ODT 5-30 05-30 Oral, ity of ) 01:00: 00:15 ONCE, 1 [place] disintegrat 00 :00 dose, Sat Med ical ing tablet 01/07/21 at [facility] 4 mg 1999, Routine hydrOXYzine 2020-0 Yes [id number] 25mg Take 1 Univers 25 mg 5-29 tablet by ity of tablet 00:00: mouth [place] 00 every 6 Medical (six) Branch hours as needed for Anxiety. hydrOXYzine 2020-0 Yes [id number] 25mg Take 1 Univers 25 mg 5-29 tablet by ity of tablet 00:00: mouth [place] 00 every 6 Medical (six) Branch hours as needed for Anxiety. hydrOXYzine 2020-0 Yes [id number] 25mg Take 1 Univers 25 mg 5-29 tablet by ity of tablet 00:00: mouth [place] 00 every 6 Medical (six) Branch hours as needed for Anxiety. hydrOXYzine 2020-0 Yes [id number] 25mg Take 1 Univers 25 mg 5-29 tablet by ity of tablet 00:00: mouth [place] 00 every 6 Medical (six) Branch hours as needed for Anxiety. hydrOXYzine 2020-0 Yes [id number] 25mg Take 1 Univers 25 mg 5-29 tablet by ity of tablet 00:00: mouth [place] 00 every 6 Medical (six) Branch hours as needed for Anxiety. hydrOXYzine 2020-0 Yes [id number] 25mg Take 1 Univers 25 mg 5-29 tablet by ity of tablet 00:00: mouth [place] 00 every 6 Medical (six) Branch hours as needed for Anxiety. hydrOXYzine 2020-0 Yes [id number] 25mg Take 1 Univers 25 mg 5-29 tablet by ity of tablet 00:00: mouth [place] 00 every 6 Medical (six) Branch hours as needed for Anxiety. hydrOXYzine 2020-0 Yes [id number] 25mg Take 1 Univers 25 mg 5-29 tablet by ity of tablet 00:00: mouth [place] 00 every 6 Medical (six) Branch hours as needed for Anxiety. hydrOXYzine 2020-0 Yes [id number] 25mg Take 1 Univers 25 mg 5-29 tablet by ity of tablet 00:00: mouth [place] 00 every 6 Medical (six) Branch hours as needed for Anxiety. NaCl 0.9% 2020- 1000mL at 999 Uni vers (NS) bolus 12-02 04-23 mL/hr, ity of infusion 19:15: 20:45 1,000 mL, Gt as 1,000 mL 00 :00 IV Medical Infusion, Branch ONCE, 1 dose, 12/02/20 at 1415, REYMUN[place] naproxen 2020-0 Yes [id number] 550mg Take 1 Un [place]aur[place] sodium 2-08 tablet by ity of (ANAPROX 00:00: mouth 2 [place] DS) 550 mg 00 (two) Medical tablet times Branch daily with meals. methylPREDN 2020-0 Yes [id number] Take by Univers ISolone 2-08 mouth ity of (MEDROL, 00:00: SEE-INSTRU Gt as LAUREN,) 4 mg 00 CTIONS. Medica l tablets follow Branch package directions naproxen 2020-0 Yes [id number] 550mg Take 1 Un [place]aur[place] sodium 2-08 tablet by ity of (ANAPROX 00:00: mouth 2 [place] DS) 550 mg 00 (two) Medical tablet times Branch daily with meals. methylPREDN 2020-0 Yes [id number] Take by Univers ISolone 2-08 mouth ity of (MEDROL, 00:00: SEE-INSTRU Gt as LAUREN,) 4 mg 00 CTIONS. Medica l tablets follow Branch package directions naproxen 2020-0 Yes [id number] 550mg Take 1 Un [place]aur[place] sodium 2-08 tablet by ity of (ANAPROX 00:00: mouth 2 [place] DS) 550 mg 00 (two) Medical tablet times Branch daily with meals. methylPREDN 2020-0 Yes [id number] Take by Univers ISolone 2-08 mouth ity of (MEDROL, 00:00: SEE-INSTRU Gt as LUAREN,) 4 mg 00 CTIONS. Medica l tablets follow Branch package directions naproxen 2020-0 Yes [id number] 550mg Take 1 Un [place]aur[place] sodium 2-08 tablet by ity of (ANAPROX 00:00: mouth 2 [place] DS) 550 mg 00 (two) Medical tablet times Branch daily with meals. methylPREDN 2020-0 Yes [id number] Take by Univers ISolone 2-08 mouth ity of (MEDROL, 00:00: SEE-INSTRU Gt as LAUREN,) 4 mg 00 CTIONS. Medica l tablets follow Branch package directions naproxen 2020-0 Yes [id number] 550mg Take 1 Un [place] sodium 2-08 tablet by ity of (ANAPROX 00:00: mouth 2 [place] DS) 550 mg 00 (two) Medical tablet times Branch daily with meals. methylPREDN 2020-0 Yes [id number] Take by Univers ISolone 2-08 mouth ity of (MEDROL, 00:00: SEE-INSTRU Gt as LAUREN,) 4 mg 00 CTIONS. Medica l tablets follow Branch package directions naproxen 2020-0 Yes [id number] 550mg Take 1 Un [place] sodium 2-08 tablet by ity of (ANAPROX 00:00: mouth 2 [place] DS) 550 mg 00 (two) Medical tablet times Branch daily with meals. methylPREDN 2020-0 Yes [id number] Take by Univers ISolone 2-08 mouth ity of (MEDROL, 00:00: SEE-INSTRU Gt as LAUREN,) 4 mg 00 CTIONS. Medica l tablets follow Branch package directions naproxen 2020-0 Yes [id number] 550mg Take 1 Un [place] sodium 2-08 tablet by ity of (ANAPROX 00:00: mouth 2 [place] DS) 550 mg 00 (two) Medical tablet times Branch daily with meals. methylPREDN 2020-0 Yes [id number] Take by Univers ISolone 2-08 mouth ity of (MEDROL, 00:00: SEE-INSTRU Gt as LAUREN,) 4 mg 00 CTIONS. Medica l tablets follow Branch package directions naproxen 2020-0 Yes [id number] 550mg Take 1 Un [place] sodium 2-08 tablet by ity of (ANAPROX 00:00: mouth 2 [place] DS) 550 mg 00 (two) Medical tablet times Branch daily with meals. methylPREDN 2020-0 Yes [id number] Take by Univers ISolone 2-08 mouth ity of (MEDROL, 00:00: SEE-INSTRU Gt as LAUREN,) 4 mg 00 CTIONS. Medica l tablets follow Branch package directions naproxen 2021-0 Yes [id number] 550mg Take 1 Un [place] sodium 2-08 tablet by ity of (ANAPROX 00:00: mouth 2 [place] DS) 550 mg 00 (two) Medical tablet times Branch daily with meals. methylPREDN Yes [id number] Take by Univers ISolone 2-08 mouth ity of (MEDROL, 00:00: SEE-INSTRU Gt as LAUREN,) 4 mg 00 CTIONS. Medica l tablets follow Branch package directions naproxen Yes [id number] 550mg Take 1 Un [place] sodium 2-08 tablet by ity of (ANAPROX 00:00: mouth 2 [place] DS) 550 mg 00 (two) Medical tablet times Branch daily with meals. methylPREDN Yes [id number] Take by [facility] ISolone 2-08 mouth ity of (MEDROL, 00:00: SEE-INSTRU Gt as LAUREN,) 4 mg 00 CTIONS. Medica l tablets follow Branch package directions dicyclomine 2019-08- No 20mg 20 mg, Uni vers (BENTYL) -29 06-18 Oral, ity of capsule 20 19:00: 17:50 ONCE, 1 [place] mg 00 :00 dose, Wed Medical 06/29/20 Branch at 1300, Routine ondansetron 2019-08- No 4mg 4 mg, Slow Univers (ZOFRAN -29 06- IV Push, ity of (PF)) 19:00: 17:50 ONCE, 1 [place] injection 4 00 :00 dose, Sat Med ical mg 06/29/20 Branch at 1300, [place] NaCl 0.9% 2019-08 2020- No 1000mL at 999 Uni vers (NS) bolus -18 -18 mL/hr, ity of infusion 19:00: 18:47 1,000 mL, Gt as 1,000 mL 00 :00 IV Medical Infusion, Branch ONCE, 1 dose, Sat06/29/20 at 1300, STAT dicyclomine 2019-08 Yes [id number] 20mg Take 1 Univers 20 mg 1-18 tablet by ity of tablet 00:00: mouth 4 [place] 00 (four) Medical times Branch daily. dicyclomine 2019-08 Yes [id number] 20mg Take 1 Univers 20 mg 1-18 tablet by ity of tablet 00:00: mouth 4 [place] 00 (four) Medical times Branch daily. dicyclomine 2020-1 Yes [id number] 20mg Take 1 Univers 20 mg 1-18 tablet by ity of tablet 00:00: [facility] [place] ([facility]) Medical times Branch daily. dicyclomine 2020-1 Yes [id number] 20mg Take 1 Univers 20 mg 1-18 tablet by ity of tablet 00:00: [facility] [place] ([facility]) Medical times Branch daily. dicyclomine 2020-1 Yes [id number] 20mg Take 1 Univers 20 mg 1-18 tablet by ity of tablet 00:00: [facility] [place] ([facility]) Medical times Branch daily. dicyclomine 2020-1 Yes [id number] 20mg Take 1 Univers 20 mg 1-18 tablet by ity of tablet 00:00: [address] ([facility]) Medical times Branch daily. dicyclomine 2020-1 Yes [id number] 20mg Take 1 Univers 20 mg 1-18 tablet by ity of tablet 00:00: [address] ([facility]) Medical times Branch daily. dicyclomine 2020-1 Yes [id number] 20mg Take 1 Univers 20 mg 1-18 tablet by ity of tablet 00:00: [address] ([facility]) Medical times Branch daily. dicyclomine 2020-1 Yes [id number] 20mg Take 1 Univers 20 mg 1-18 tablet by ity of tablet 00:00: [address] ([facility]) Medical times Branch daily. dicyclomine 2020-1 Yes [id number] 20mg Take 1 Univers 20 mg 1-18 tablet by ity of tablet 00:00: [address] ([facility]) Medical times Branch daily. dicyclomine 2020-1 Yes [id number] 20mg Take 1 Univers 20 mg 1-18 tablet by ity of tablet 00:00: [address] ([facility]) Medical times Branch daily. dicyclomine 2020-1 Yes [id number] 20mg Take 1 Univers 20 mg 1-18 tablet by ity of tablet 00:00: [address] ([facility]) Medical times Branch daily. dicyclomine 2020-1 Yes [id number] 20mg Take 1 Univers 20 mg 1-18 tablet by ity of tablet 00:00: [address] ([facility]) Medical times Branch daily. dicyclomine 2020-1 Yes [id number] 20mg Take 1 Univers 20 mg 1-18 tablet by ity of tablet 00:00: mouth 4 [place] 00 (four) Medical times Branch daily. dicyclomine 2020- Yes [id number] 20mg Take 1 Univers 20 mg 1-18 tablet by ity of tablet 00:00: mouth 4 [place] 00 (four) Medical times Branch daily. dicyclomine 2019- Yes [id number] 20mg Take 1 Univers 20 mg 1-18 tablet by ity of tablet 00:00: mouth 4 [place] 00 (four) Medical times Branch daily. dicyclomine 2019- Yes [id number] 20mg Take 1 Univers 20 mg 1-18 tablet by ity of tablet 00:00: mouth 4 [place] 00 (four) Medical times Branch daily. azithromyci 2019- 2020- No [id number] 1000mg Take 2 Univers n 500 mg 0-21 10-23 tablets by ity of tablet 00:00: 04:59 mouth [place] 00 :00 daily for Medical 1 day. [place] azithromyci 2019- 2020- No [id number] 1000mg Take 2 Univers n 500 mg 0-21 10-23 tablets by ity of tablet 00:00: 04:59 mouth [place] 00 :00 daily for Medical 1 day. [place] azithromyci 2019-2019- No [id number] 1000mg Take 2 Univers n 500 mg 0-21 10-23 tablets by ity of tablet 00:00: 04:59 mouth [place] 00 :00 daily for Medical 1 day. [place] azithromyci 2019- 2020- No [id number] 1000mg Take 2 Univers n 500 mg 0-21 10-23 tablets by ity of tablet 00:00: 04:59 mouth [place] 00 :00 daily for Medical 1 day. [place] QUEtiapine 2019- 2020- No [id number] 200mg Take 200 Univers 100 mg 0-20 10-20 mg by ity of tablet 19:01: 00:00 mouth [place] 03 :00 daily. [facility] QUEtiapine 2019- 2020- No [id number] 200mg Take 200 Univers 100 mg 0-20 10-20 mg by ity of tablet 19:01: 00:00 mouth [place] 03 :00 daily. [facility] QUEtiapine 2019- 2020- No [id number] 200mg Take 200 Univers 100 mg 0-20 10-20 mg by ity of tablet 19:01: 00:00 mouth [place] 03 :00 daily. Medical Branch QUEtiapine 2019- 2020- No [id number] 200mg Take 200 Univers 100 mg 0-20 10-20 mg by ity of tablet 19:01: 00:00 mouth [place] 03 :00 daily. Medical Branch QUEtiapine 2019- 2020- No [id number] 200mg Take 200 Univers 100 mg 0-20 10-20 mg by ity of tablet 19:01: 00:00 mouth [place] 03 :00 daily. Medical Branch ibuprofen 2019-2019- No [id number] 600mg Take 600 Univers 600 mg 0-20 10-20 mg by ity of tablet 19:00: 00:00 mouth [place] 37 :00 every 6 Medical (six) Branch hours as needed. ibuprofen 2019-2019- No [id number] 600mg Take 600 Univers 600 mg 0-20 10-20 mg by ity of tablet 19:00: 00:00 mouth [place] 37 :00 every 6 Medical (six) Branch hours as needed. ibuprofen 2019- 2020- No [id number] 600mg Take 600 Univers 600 mg 0-20 10-20 mg by ity of tablet 19:00: 00:00 mouth [place] 37 :00 every 6 Medical (six) Branch hours as needed. ibuprofen 2019- 2020- No [id number] 600mg Take 600 Univers 600 mg 0-20 10-20 mg by ity of tablet 19:00: 00:00 mouth [place] 37 :00 every 6 Medical (six) Branch hours as needed. ibuprofen 2019-2019- No [id number] 600mg Take 600 Univers 600 mg 0-20 10-20 mg by ity of tablet 19:00: 00:00 mouth [place] 37 :00 every 6 Medical (six) Branch hours as needed. FERROUS 2019- 2020- No Take by Univer s SULFATE 0-20 10-20 mouth 2 ity of ORAL 19:00: 00:00 (two) [place] 34 :00 times Medical daily. Branch FERROUS 2019- 2020- No Take by Univer s SULFATE 0-20 10-20 mouth 2 ity of ORAL 19:00: 00:00 (two) [place] 34 :00 times Medical daily. Branch FERROUS 2019- 2020- No Take by Univer s SULFATE 0-20 10-20 mouth 2 ity of ORAL 19:00: 00:00 (two) [place] 34 :00 times Medical daily. Branch FERROUS 2020-1 2020- No Take by Univer s SULFATE 0-20 10-20 mouth 2 ity of ORAL 19:00: 00:00 (two) [place] 34 :00 times Medical daily. Branch FERROUS 2020-1 2020- No Take by Univer s SULFATE 0-20 10-20 mouth 2 ity of ORAL 19:00: 00:00 (two) [place] 34 :00 times Medical daily. Branch FERROUS 2020-0 Yes Take by Univers SULFATE 2-25 mouth 2 ity of ORAL 21:59: (two) [place] 56 times Medical daily. Branch FERROUS 2020-0 Yes Take by Univers SULFATE 2-25 mouth 2 ity of ORAL 21:59: (two) [place] 56 times Medical daily. Branch FERROUS 2020-0 Yes Take by Univers SULFATE 2-25 mouth 2 ity of ORAL 21:59: (two) [place] 56 times Medical daily. Branch FERROUS 2020-0 Yes Take by Univers SULFATE 2-25 mouth 2 ity of ORAL 21:59: (two) [place] 56 times Medical daily. Branch FERROUS 2020-0 Yes Take by Univers SULFATE 2-25 mouth 2 ity of ORAL 21:59: (two) [place] 56 times Medical daily. Branch norgestimat 2020-0 Yes [id number] 1{tbl} Take 1 Univers e-ethinyl 2-25 tablet by ity o f estradiol 00:00: mouth [place] ([facility]THO 00 daily. [facility] 0.18/0.215/ 0.25 mg-35 mcg (28) tablet norgestimat 2020-0 Yes [id number] 1{tbl} Take 1 Univers e-ethinyl 2-25 tablet by ity o f estradiol 00:00: mouth [place] (ORTHO 00 daily. Medical TRI-CYCLEN, [place] 28,) 0.18/0.215/ 0.25 mg-35 mcg (28) tablet norgestimat 2020-0 Yes [id number] 1{tbl} Take 1 Univers e-ethinyl 2-25 tablet by ity o f estradiol 00:00: mouth [place] (ORTHO 00 daily. Medical TRI-CYCLEN, [place] 28,) 0.18/0.215/ 0.25 mg-35 mcg (28) tablet norgestimat 2020-0 Yes [id number] 1{tbl} Take 1 Univers e-ethinyl 2-25 tablet by ity o f estradiol 00:00: mouth [place] (ORTHO 00 daily. [place] [address],) 0.18/0.215/ 0.25 mg-35 mcg (28) tablet norgestimat 2020-0 Yes [id number] 1{tbl} Take 1 Univers e-ethinyl 2-25 tablet by ity o f estradiol 00:00: mouth [place] (ORTHO 00 daily. [place] [address],) 0.18/0.215/ 0.25 mg-35 mcg (28) tablet norgestimat 2020-0 2020- No [id number] 1{tbl} Take 1 [facility] e-ethinyl 2-25 10-20 tablet by ity of estradiol 00:00: 00:00 mouth [place] (ORTHO 00 :00 daily. [place] [address],) 0.18/0.215/ 0.25 mg-35 mcg (28) tablet norgestimat 2020-0 2020- No [id number] 1{tbl} Take 1 Univers e-ethinyl 2-25 10-20 tablet by ity of estradiol 00:00: 00:00 mouth [place] (ORTHO 00 :00 daily. [place] [address],) 0.18/0.215/ 0.25 mg-35 mcg (28) tablet norgestimat 2020-0 2020- No [id number] 1{tbl} Take 1 Univers e-ethinyl 2-25 10-20 tablet by ity of estradiol 00:00: 00:00 mouth [place] (ORTHO 00 :00 daily. [place] [address],) 0.18/0.215/ 0.25 mg-35 mcg (28) tablet norgestimat 2020-0 2020- No [id number] 1{tbl} Take 1 Univers e-ethinyl 2-25 10-20 tablet by ity of estradiol 00:00: 00:00 mouth [place] (ORTHO 00 :00 daily. [place] [address],) 0.18/0.215/ 0.25 mg-35 mcg (28) tablet norgestimat 2020-0 2020- No [id number] 1{tbl} Take 1 Univers e-ethinyl 2-25 10-20 tablet by ity of estradiol 00:00: 00:00 mouth [place] (ORTHO 00 :00 daily. Medical TRI-CYCLEN, Branch 28,) 0.18/0.215/ 0.25 mg-35 mcg (28) tablet azithromyci 2020-0 Yes [id number] 250mg Take 1 Univers n 250 mg 1-29 tablet by ity of tablet 00:00: mouth [place] 00 daily. Medical Take 500 Branch mg day 1, then 250 mg days 2 to 5. azithromyci 2020-0 Yes [id number] 250mg Take 1 Univers n 250 mg 1-29 tablet by ity of tablet 00:00: mouth [place] 00 daily. Medical Take 500 Branch mg day 1, then 250 mg days 2 to 5. azithromyci 2020-0 Yes [id number] 250mg Take 1 Univers n 250 mg 1-29 tablet by ity of tablet 00:00: mouth [place] 00 daily. Medical Take 500 Branch mg day 1, then 250 mg days 2 to 5. azithromyci 2020-0 Yes [id number] 250mg Take 1 Univers n 250 mg 1-29 tablet by ity of tablet 00:00: mouth [place] 00 daily. Medical Take 500 Branch mg day 1, then 250 mg days 2 to 5. azithromyci 2020-0 Yes [id number] 250mg Take 1 Univers n 250 mg 1-29 tablet by ity of tablet 00:00: mouth [place] 00 daily. Medical Take 500 Branch mg day 1, then 250 mg days 2 to 5. azithromyci 2020-0 Yes [id number] 250mg Take 1 Univers n 250 mg 1-29 tablet by ity of tablet 00:00: mouth [place] 00 daily. Medical Take 500 Branch mg day 1, then 250 mg days 2 to 5. azithromyci 2020-0 Yes [id number] 250mg Take 1 Univers n 250 mg 1-29 tablet by ity of tablet 00:00: mouth [place] 00 daily. Medical Take 500 Branch mg day 1, then 250 mg days 2 to 5. azithromyci 2020-0 2020- No [id number] 250mg Take 1 Univers n 250 mg 1-29 10-20 tablet by ity o f tablet 00:00: 00:00 mouth [place] 00 :00 daily. Medical Take 500 Branch mg day 1, then 250 mg days 2 to 5. azithromyci 2020-0 2020- No [id number] 250mg Take 1 Univers n 250 mg 1-29 10-20 tablet by ity o f tablet 00:00: 00:00 mouth [place] 00 :00 daily. Medical Take 500 Branch mg day 1, then 250 mg days 2 to 5. azithromyci 2020-0 2020- No [id number] 250mg Take 1 Univers n 250 mg 1-29 10-20 tablet by ity o f tablet 00:00: 00:00 mouth [place] 00 :00 daily. Medical Take 500 Branch mg day 1, then 250 mg days 2 to 5. azithromyci 2020-0 2020- No [id number] 250mg Take 1 Univers n 250 mg 1-29 10-20 tablet by ity o f tablet 00:00: 00:00 mouth [place] 00 :00 daily. Medical Take 500 Branch mg day 1, then 250 mg days 2 to 5. azithromyci 2020-0 2020- No [id number] 250mg Take 1 Univers n 250 mg 1-29 10-20 tablet by ity o f tablet 00:00: 00:00 mouth [place] 00 :00 daily. Medical Take 500 Branch mg day 1, then 250 mg days 2 to 5. FERROUS 2019-0 Yes Take by Univers SULFATE 5-16 mouth 2 ity of ORAL 15:29: (two) [place] 45 times Medical daily. Branch FERROUS 2019-0 Yes Take by Univers SULFATE 5-16 mouth 2 ity of ORAL 15:29: (two) [place] 45 times Medical daily. Branch FERROUS 2019-0 Yes Take by Univers SULFATE 5-16 mouth 2 ity of ORAL 15:29: (two) [place] 45 times Medical daily. Branch norgestimat 2019-0 Yes [id number] 1{tbl} Take 1 Univers e-ethinyl 5-16 tablet by ity o f estradiol 00:00: mouth [place] (ORTHO 00 daily. Medical TRI-CYCLEN, [place] 28,) 0.18/0.215/ 0.25 mg-35 mcg (28) tablet norgestimat 2019-0 Yes [id number] 1{tbl} Take 1 Univers e-ethinyl 5-16 tablet by ity o f estradiol 00:00: mouth [place] (ORTHO 00 daily. Medical TRI-CYCLEN, [place] 28,) 0.18/0.215/ 0.25 mg-35 mcg (28) tablet norgestimat Yes [id number] 1{tbl} Take 1 Univers e-ethinyl 5-16 tablet by ity o f estradiol 00:00: mouth [place] (ORTHO 00 daily. [facility] 28,) 0.18/0.215/ 0.25 mg-35 mcg (28) tablet norgestimat 2020- No [id number] 1{tbl} Take 1 Univers e-ethinyl 5-16 02-25 tablet by ity of estradiol 00:00: 00:00 mouth [place] (ORTHO 00 :00 daily. [place] [address],) 0.18/0.215/ 0.25 mg-35 mcg (28) tablet norgestimat 2020- No [id number] 1{tbl} Take 1 Univers e-ethinyl 5-16 02-25 tablet by ity of estradiol 00:00: 00:00 mouth [place] (ORTHO 00 :00 daily. [place] [address],) 0.18/0.215/ 0.25 mg-35 mcg (28) tablet norethindro 2017- Yes [id number] 1{tbl} Take 1 Univers ne 0.35 mg 8-09 tablet by ity of tablet 00:00: mouth [place] 00 daily. [facility] norethindro 2017- Yes [id number] 1{tbl} Take 1 Univers ne 0.35 mg 8-09 tablet by ity of tablet 00:00: mouth [place] 00 daily. [facility] norethindro 2017- Yes [id number] 1{tbl} Take 1 Univers ne 0.35 mg 8-09 tablet by ity of tablet 00:00: mouth [place] 00 daily. [facility] Branch norethindro Yes [id number] 1{tbl} Take 1 Univers ne 0.35 mg 8-09 tablet by ity of tablet 00:00: mouth [place] 00 daily. [facility] norethindro Yes [id number] 1{tbl} Take 1 Univers ne 0.35 mg 8-09 tablet by ity of tablet 00:00: mouth [place] 00 daily. [facility] norethindro Yes [id number] 1{tbl} Take 1 Univers ne 0.35 mg 8-09 tablet by ity of tablet 00:00: mouth [place] 00 daily. [facility] Yes [id number] 1{tbl} Take 1 Univers ne 0.35 mg 8-09 tablet by ity of tablet 00:00: mouth [place] 00 daily. [facility] Yes [id number] 1{tbl} Take 1 Univers ne 0.35 mg 8-09 tablet by ity of tablet 00:00: mouth [place] 00 daily. [facility] 2019- No [id number] 1{tbl} Take 1 Univers ne 0.35 mg 8-09 10-20 tablet by ity of tablet 00:00: 00:00 mouth [place] 00 :00 daily. [facility] 2019- No [id number] 1{tbl} Take 1 Univers ne 0.35 mg 8-09 10-20 tablet by ity of tablet 00:00: 00:00 mouth [place] 00 :00 daily. [facility] 2019- No [id number] 1{tbl} Take 1 Univers ne 0.35 mg 8-09 10-20 tablet by ity of tablet 00:00: 00:00 mouth [place] 00 :00 daily. [facility] 2020- No [id number] 1{tbl} Take 1 Univers ne 0.35 mg 8-09 10-20 tablet by ity of tablet 00:00: 00:00 mouth [place] 00 :00 daily. [facility] 2019- No [id number] 1{tbl} Take 1 Univers ne 0.35 mg 8-09 10-20 tablet by ity of tablet 00:00: 00:00 mouth [place] 00 :00 daily. Medical Branch ibuprofen Yes [id number] 600mg Take 600 Univers 600 mg 5-11 mg by ity of tablet 21:17: mouth [place] 43 every 6 Medical (six) Branch hours as needed. QUEtiapine Yes [id number] 200mg Take 200 Univers 100 mg 5-11 mg by ity of tablet 21:17: mouth [place] 43 daily. Medical Branch ibuprofen Yes [id number] 600mg Take 600 Univers 600 mg 5-11 mg by ity of tablet 21:17: mouth [place] 43 every 6 Medical (six) Branch hours as needed. QUEtiapine 2018-0 Yes [id number] 200mg Take 200 Univers 100 mg 5-11 mg by ity of tablet 21:17: mouth [place] 43 daily. Medical Branch ibuprofen 2018-0 Yes [id number] 600mg Take 600 Univers 600 mg 5-11 mg by ity of tablet 21:17: mouth [place] 43 every 6 Medical (six) Branch hours as needed. QUEtiapine 2018-0 Yes [id number] 200mg Take 200 Univers 100 mg 5-11 mg by ity of tablet 21:17: mouth [place] 43 daily. Medical Branch ibuprofen 2018-0 Yes [id number] 600mg Take 600 Univers 600 mg 5-11 mg by ity of tablet 21:17: mouth [place] 43 every 6 Medical (six) Branch hours as needed. QUEtiapine 2018-0 Yes [id number] 200mg Take 200 Univers 100 mg 5-11 mg by ity of tablet 21:17: mouth [place] 43 daily. Medical Branch ibuprofen 2018-0 Yes [id number] 600mg Take 600 Univers 600 mg 5-11 mg by ity of tablet 21:17: mouth [place] 43 every 6 Medical (six) Branch hours as needed. QUEtiapine 2018-0 Yes [id number] 200mg Take 200 Univers 100 mg 5-11 mg by ity of tablet 21:17: mouth [place] 43 daily. Medical Branch ibuprofen 2018-0 Yes [id number] 600mg Take 600 Univers 600 mg 5-11 mg by ity of tablet 21:17: mouth [place] 43 every 6 Medical (six) Branch hours as needed. QUEtiapine 2018-0 Yes [id number] 200mg Take 200 Univers 100 mg 5-11 mg by ity of tablet 21:17: mouth [place] 43 daily. Medical Branch ibuprofen 2018-0 Yes [id number] 600mg Take 600 Univers 600 mg 5-11 mg by ity of tablet 21:17: mouth [place] 43 every 6 Medical (six) Branch hours as needed. QUEtiapine 2018-0 Yes [id number] 200mg Take 200 Univers 100 mg 5-11 mg by ity of tablet 21:17: mouth [place] 43 daily. Medical Branch ibuprofen 2018-0 Yes [id number] 600mg Take 600 Univers 600 mg 5-11 mg by ity of tablet 21:17: mouth [place] 43 every 6 Medical (six) Branch hours as needed. QUEtiapine Yes [id number] 200mg Take 200 Univers 100 mg 5-11 mg by ity of tablet 21:17: mouth [place] 43 daily. Medical Branch pramoxine-h Yes [id number] Insert Univers ydrocortiso 4-05 into ity of ne 1-1 % 00:00: rectum 2 [place] rectal 00 (two) Medical cream times Branch daily. pramoxine-h Yes [id number] Insert Univers ydrocortiso 4-05 into ity of ne 1-1 % 00:00: rectum 2 [place] rectal 00 (two) Medical cream times Branch daily. pramoxine-h Yes [id number] Insert Univers ydrocortiso 4-05 into ity of ne 1-1 % 00:00: rectum 2 [place] rectal 00 (two) Medical cream times Branch daily. pramoxine-h Yes [id number] Insert Univers ydrocortiso 4-05 into ity of ne 1-1 % 00:00: rectum 2 [place] rectal 00 (two) Medical cream times Branch daily. pramoxine-h Yes [id number] Insert Univers ydrocortiso 4-05 into ity of ne 1-1 % 00:00: rectum 2 [place] rectal 00 (two) Medical cream times Branch daily. pramoxine-h Yes [id number] Insert Univers ydrocortiso 4-05 into ity of ne 1-1 % 00:00: rectum 2 [place] rectal 00 (two) Medical cream times Branch daily. pramoxine-h Yes [id number] Insert Univers ydrocortiso 4-05 into ity of ne 1-1 % 00:00: rectum 2 [place] rectal 00 (two) Medical cream times Branch daily. pramoxine-h Yes [id number] Insert Univers ydrocortiso 4-05 into ity of ne 1-1 % 00:00: rectum 2 [place] rectal 00 (two) Medical cream times Branch daily. pramoxine-h 2020- No [id number] Insert [facility] ydrocortiso 4-05 10-20 into ity of ne 1-1 % 00:00: 00:00 rectum 2 [place] rectal 00 :00 (two) Medical cream times Branch daily. pramoxine-h 2019- No [id number] Insert Univers ydrocortiso 4-05 10-20 into ity of ne 1-1 % 00:00: 00:00 rectum 2 [place] rectal 00 :00 (two) Medical cream times Branch daily. pramoxine-h 2019- No [id number] Insert Univers ydrocortiso 4-05 10-20 into ity of ne 1-1 % 00:00: 00:00 rectum 2 [place] rectal 00 :00 (two) Medical cream times Branch daily. pramoxine-h 2019- No [id number] Insert Univers ydrocortiso 4-05 10-20 into ity of ne 1-1 % 00:00: 00:00 rectum 2 [place] rectal 00 :00 (two) Medical cream times Branch daily. pramoxine-h 2019- No [id number] Insert Univers ydrocortiso 4-05 10-20 into ity of ne 1-1 % 00:00: 00:00 rectum 2 [place] rectal 00 :00 (two) Medical cream times Branch daily. No known No Univers medications ity of [facility] [facility] Immunizations Ordered Filled Immunization Date Status Comments [facility] e Immunization Name Name Influenza Virus 2020-05-18 Completed Universit y of Vaccine Quad .5 mL 00:00:00 [facility] 6+ MO Branch Influenza Virus 2020-05-18 Completed Universit y of Vaccine [place] .5 mL 00:00:00 [facility] 6+ MO Branch Influenza Virus 2020-05-18 Completed Universit y of Vaccine [place] .5 mL 00:00:00 [place] [facility] 6+ MO Branch Influenza Virus 2020-05-18 Completed Universit y of Vaccine [place] .5 mL 00:00:00 [place] [facility] IM 6+ MO Branch Influenza Virus 2020-05-18 Completed Universit y of Vaccine [place] .5 mL 00:00:00 [facility] 6+ MO Branch Influenza Virus 2020-05-18 Completed Universit y of Vaccine [place] .5 mL 00:00:00 [facility] 6+ MO Branch Influenza Virus 2020-05-18 Completed Universit y of Vaccine [place] .5 mL 00:00:00 [facility] 6+ MO Branch Influenza Virus 2020-05-18 Completed Universit y of Vaccine [place] .5 mL 00:00:00 [place] [facility] IM 6+ MO Branch Influenza Virus 2020-05-18 Completed Universit y of Vaccine [place] .5 mL 00:00:00 [place] [facility] IM 6+ MO Branch Influenza Virus 2020-05-18 Completed Universit y of Vaccine [place] .5 mL 00:00:00 [place] [facility] IM 6+ MO Branch Influenza Virus 2020-05-18 Completed Universit y of Vaccine [place] .5 mL 00:00:00 [place] [facility] IM 6+ MO Branch Influenza Virus 2020-05-18 Completed Universit y of Vaccine [place] .5 mL 00:00:00 [place] [facility] IM 6+ MO Branch Influenza Virus 2020-05-18 Completed Universit y of Vaccine [place] .5 mL 00:00:00 [place] [facility] IM 6+ MO Branch Influenza Virus 2020-05-18 Completed Universit y of Vaccine [place] .5 mL 00:00:00 [place] [facility] IM 6+ MO Branch Influenza Virus 2020-05-18 Completed Universit y of Vaccine [place] .5 mL 00:00:00 [place] [facility] IM 6+ MO Branch Influenza Virus 2020-05-18 Completed Universit y of Vaccine [place] .5 mL 00:00:00 [place] [facility] IM 6+ MO Branch Influenza Virus 2020-05-18 Completed Universit y of Vaccine [place] .5 mL 00:00:00 [place] [facility] IM 6+ MO Branch Influenza Virus 2020-05-18 Completed Universit y of Vaccine Quad .5 mL 00:00:00 [place] [facility] IM 6+ MO Branch Influenza Virus 2020-05-18 Completed Universit y of Vaccine Quad .5 mL 00:00:00 [place] [facility] IM 6+ MO Branch Influenza Virus 2020-05-18 Completed Universit y of Vaccine Quad .5 mL 00:00:00 [place] [facility] IM 6+ MO Branch Influenza Virus 2020-05-18 Completed Universit y of Vaccine [place] .5 mL 00:00:00 [place] [facility] IM 6+ MO Branch Influenza Virus 2020-05-18 Completed Universit y of Vaccine [place] .5 mL 00:00:00 [place] [facility] IM 6+ MO Branch Influenza Virus 2020-05-18 Completed Universit y of Vaccine Quad .5 mL 00:00:00 [place] [facility] IM 6+ MO Branch Influenza Virus 2020-05-18 Completed Universit y of Vaccine [place] .5 mL 00:00:00 [place] [facility] IM 6+ MO Branch Influenza Virus 2020-05-18 Completed Universit y of Vaccine Quad .5 mL 00:00:00 [place] [facility] IM 6+ MO Branch Influenza Virus 2020-05-18 Completed Universit y of Vaccine [place] .5 mL 00:00:00 [place] [facility] IM 6+ MO Branch Influenza Virus 2020-05-18 Completed Universit y of Vaccine Quad .5 mL 00:00:00 [place] [facility] IM 6+ MO Branch Influenza Virus 2020-05-18 Completed Universit y of Vaccine Quad .5 mL 00:00:00 [facility] IM 6+ MO Branch HPV9 2017-03-21 Completed University of 00:00:00 [place] [facility] HPV9 2017-03-21 Completed University of 00:00:00 [place] [facility] HPV9 2017-03-21 Completed University of 00:00:00 [place] [facility] HPV9 2017-03-21 Completed University of 00:00:00 [place] [facility] HPV9 2017-03-21 Completed University of 00:00:00 [place] [facility] HPV9 2017-03-21 Completed University of 00:00:00 [place] [facility] HPV9 2017-03-21 Completed University of 00:00:00 [place] [facility] HPV9 2017-03-21 Completed University of 00:00:00 [place] [facility] HPV9 2017-03-21 Completed University of 00:00:00 [place] [facility] HPV9 2017-03-21 Completed University of 00:00:00 [place] [facility] HPV9 2017-03-21 Completed University of 00:00:00 [place] [facility] HPV9 2017-03-21 Completed University of 00:00:00 [place] [facility] HPV9 2017-03-21 Completed University of 00:00:00 [place] [facility] HPV9 2017-03-21 Completed University of 00:00:00 [place] [facility] HPV9 2017-03-21 Completed University of 00:00:00 [place] [facility] HPV9 2017-03-21 Completed University of 00:00:00 [place] [facility] HPV9 2017-03-21 Completed University of 00:00:00 [place] [facility] HPV9 2017-03-21 Completed University of 00:00:00 [place] [facility] HPV9 2017-03-21 Completed University of 00:00:00 [place] [facility] HPV9 2017-03-21 Completed University of 00:00:00 [place] [facility] HPV9 2017-03-21 Completed University of 00:00:00 [place] [facility] HPV9 2017-03-21 Completed University of 00:00:00 [place] [facility] HPV9 2017-03-21 Completed University of 00:00:00 [place] [facility] HPV9 2017-03-21 Completed University of 00:00:00 [place] [facility] HPV9 2017-03-21 Completed University of 00:00:00 [place] [facility] HPV9 2017-03-21 Completed University of 00:00:00 [place] [facility] HPV9 2017-03-21 Completed University of 00:00:00 [place] [facility] HPV9 2017-03-21 Completed University of 00:00:00 [place] [facility] HPV9 2017-03-21 Completed University of 00:00:00 [place] [facility] HPV9 2017-03-21 Completed University of 00:00:00 [place] [facility] HPV9 2017-03-21 Completed University of 00:00:00 [place] [facility] HPV9 2017-03-21 Completed University of 00:00:00 [place] [facility] HPV9 2017-03-21 Completed University of 00:00:00 [place] [facility] HPV9 2017-03-21 Completed University of 00:00:00 [place] [facility] HPV9 2017-03-21 Completed University of 00:00:00 [place] [facility] HPV9 2016-11-09 Completed University of 00:00:00 [place] [facility] HPV9 2016-11-09 Completed University of 00:00:00 [place] [facility] HPV9 2016-11-09 Completed University of 00:00:00 [place] [facility] HPV9 2016-11-09 Completed University of 00:00:00 [place] [facility] HPV9 2016-11-09 Completed University of 00:00:00 [place] [facility] HPV9 2016-11-09 Completed University of 00:00:00 [place] [facility] HPV9 2016-11-09 Completed University of 00:00:00 [place] [facility] HPV9 2016-11-09 Completed University of 00:00:00 [place] [facility] HPV9 2016-11-09 Completed University of 00:00:00 [place] [facility] HPV9 2016-11-09 Completed University of 00:00:00 [place] [facility] HPV9 2016-11-09 Completed University of 00:00:00 [place] [facility] HPV9 2016-11-09 Completed University of 00:00:00 [place] [facility] HPV9 2016-11-09 Completed University of 00:00:00 [place] [facility] HPV9 2016-11-09 Completed University of 00:00:00 [place] [facility] HPV9 2016-11-09 Completed University of 00:00:00 [place] [facility] HPV9 2016-11-09 Completed University of 00:00:00 [facility] Branch HPV9 2016-11-09 Completed University of 00:00:00 [facility] Branch HPV9 2016-11-09 Completed University of 00:00:00 [facility] Branch HPV9 2016-11-09 Completed University of 00:00:00 [facility] Branch HPV9 2016-11-09 Completed University of 00:00:00 [facility] Branch HPV9 2016-11-09 Completed University of 00:00:00 [facility] Branch HPV9 2016-11-09 Completed University of 00:00:00 [facility] HPV9 2016-11-09 Completed University of 00:00:00 [facility] Branch HPV9 2016-11-09 Completed University of 00:00:00 [facility] Branch HPV9 2016-11-09 Completed University of 00:00:00 [facility] HPV9 2016-11-09 Completed University of 00:00:00 [facility] HPV9 2016-11-09 Completed University of 00:00:00 [facility] HPV9 2016-11-09 Completed University of 00:00:00 [facility] Branch HPV9 2016-11-09 Completed University of 00:00:00 [facility] Branch HPV9 2016-11-09 Completed University of 00:00:00 [facility] HPV9 2016-11-09 Completed University of 00:00:00 [facility] HPV9 2016-11-09 Completed University of 00:00:00 [facility] HPV9 2016-11-09 Completed University of 00:00:00 [facility] HPV9 2016-11-09 Completed University of 00:00:00 [facility] HPV9 2016-11-09 Completed University of 00:00:00 [facility] [facility] Rho (d) Immune 2016-09-11 Completed University of Globulin 00:00:00 [facility] HPV 2016-09-11 Completed University of 00:00:00 [facility] Rho (d) Immune 2016-09-11 Completed University of Globulin 00:00:00 [facility] HPV 2016-09-11 Completed University of 00:00:00 [facility] Rho (d) Immune 2016-09-11 Completed University of Globulin 00:00:00 [facility] HPV 2016-09-11 Completed University of 00:00:00 [facility] [facility] Rho (d) Immune 2016-09-11 Completed University of Globulin 00:00:00 [facility] HPV 2016-09-11 Completed University of 00:00:00 [facility] [facility] Rho (d) Immune 2016-09-11 Completed University of Globulin 00:00:00 [facility] [facility] HPV 2016-09-11 Completed University of 00:00:00 [facility] Branch Rho (d) Immune 2016-09-11 Completed University of Globulin 00:00:00 [facility] HPV 2016-09-11 Completed University of 00:00:00 [facility] Rho (d) Immune 2016-09-11 Completed University of Globulin 00:00:00 [facility] HPV 2016-09-11 Completed University of 00:00:00 [facility] Rho (d) Immune 2016-09-11 Completed University of Globulin 00:00:00 [facility] [facility] HPV 2016-09-11 Completed University of 00:00:00 [facility] Rho (d) Immune 2016-09-11 Completed University of Globulin 00:00:00 [facility] [facility] HPV 2016-09-11 Completed University of 00:00:00 [facility] Rho (d) Immune 2016-09-11 Completed [facility] Globulin 00:00:00 [facility] HPV 2016-09-11 Completed [facility] of 00:00:00 [facility] Rho (d) Immune 2016-09-11 Completed [facility] Globulin 00:00:00 [facility] HPV 2016-09-11 Completed [facility] of 00:00:00 [facility] Rho (d) Immune 2016-09-11 Completed [facility] Globulin 00:00:00 [facility] HPV 2016-09-11 Completed [facility] of 00:00:00 [facility] Rho (d) Immune 2016-09-11 Completed [facility] Globulin 00:00:00 [facility] HPV 2016-09-11 Completed [facility] of 00:00:00 [facility] Rho (d) Immune 2016-09-11 Completed [facility] Globulin 00:00:00 [facility] HPV 2016-09-11 Completed [facility] of 00:00:00 [facility] Rho (d) Immune 2016-09-11 Completed [facility] Globulin 00:00:00 [facility] HPV 2016-09-11 Completed [facility] of 00:00:00 [facility] Rho (d) Immune 2016-09-11 Completed [facility] Globulin 00:00:00 [facility] HPV 2016-09-11 Completed [facility] of 00:00:00 [facility] Rho (d) Immune 2016-09-11 Completed [facility] Globulin 00:00:00 [facility] HPV 2016-09-11 Completed [facility] of 00:00:00 [facility] Rho (d) Immune 2016-09-11 Completed [facility] Globulin 00:00:00 [facility] HPV 2016-09-11 Completed [facility] of 00:00:00 [facility] Rho (d) Immune 2016-09-11 Completed [facility] Globulin 00:00:00 [facility] HPV 2016-09-11 Completed [facility] 00:00:00 [facility] Rho (d) Immune 2016-09-11 Completed [facility] Globulin 00:00:00 [facility] HPV 2016-09-11 Completed [facility] of 00:00:00 [facility] Rho (d) Immune 2016-09-11 Completed [facility] Globulin 00:00:00 [facility] HPV 2016-09-11 Completed [facility] of 00:00:00 [facility] Rho (d) Immune 2016-09-11 Completed [facility] Globulin 00:00:00 [facility] HPV 2016-09-11 Completed [facility] of 00:00:00 [facility] Rho (d) Immune 2016-09-11 Completed [facility] Globulin 00:00:00 [facility] HPV 2016-09-11 Completed [facility] of 00:00:00 [facility] Rho (d) Immune 2016-09-11 Completed [facility] Globulin 00:00:00 [facility] HPV 2016-09-11 Completed [facility] 00:00:00 [facility] Rho (d) Immune 2016-09-11 Completed [facility] Globulin 00:00:00 [facility] HPV 2016-09-11 Completed [facility] of 00:00:00 [facility] Rho (d) Immune 2016-09-11 Completed [facility] Globulin 00:00:00 [facility] HPV 2016-09-11 Completed [facility] of 00:00:00 [facility] Rho (d) Immune 2016-09-11 Completed [facility] Globulin 00:00:00 [facility] HPV 2016-09-11 Completed [facility] of 00:00:00 [facility] Rho (d) Immune 2016-09-11 Completed [facility] Globulin 00:00:00 [facility] HPV 2016-09-11 Completed [facility] of 00:00:00 [facility] Rho (d) Immune 2016-09-11 Completed [facility] Globulin 00:00:00 [facility] HPV 2016-09-11 Completed [facility] of 00:00:00 [facility] Rho (d) Immune 2016-09-11 Completed [facility] Globulin 00:00:00 [facility] HPV 2016-09-11 Completed [facility] of 00:00:00 [facility] Rho (d) Immune 2016-09-11 Completed [facility] Globulin 00:00:00 [facility] HPV 2016-09-11 Completed [facility] of 00:00:00 [facility] Rho (d) Immune 2016-09-11 Completed [facility] Globulin 00:00:00 [facility] HPV 2016-09-11 Completed [facility] of 00:00:00 [facility] Rho (d) Immune 2016-09-11 Completed [facility] Globulin 00:00:00 [facility] HPV 2016-09-11 Completed [facility] of 00:00:00 [facility] Rho (d) Immune 2016-09-11 Completed [facility] Globulin 00:00:00 [facility] HPV 2016-09-11 Completed [facility] of 00:00:00 [facility] Rho (d) Immune 2016-09-11 Completed [facility] Globulin 00:00:00 [facility] HPV 2016-09-11 Completed [facility] of 00:00:00 [facility] TDAP 2016-07-09 Completed [facility] of 00:00:00 [facility] TDAP 2016-07-09 Completed [facility] of 00:00:00 [facility] Tdap 2016-07-09 Completed [facility] of 00:00:00 [facility] Tdap 2016-07-09 Completed [facility] 00:00:00 [facility] Tdap 2016-07-09 Completed [facility] of 00:00:00 [facility] Tdap 2016-07-09 Completed [facility] of 00:00:00 [facility] Tdap 2016-07-09 Completed [facility] of 00:00:00 [facility] Tdap 2016-07-09 Completed [facility] of 00:00:00 [facility] TDAP 2016-07-09 Completed [facility] of 00:00:00 [facility] TDAP 2016-07-09 Completed [facility] of 00:00:00 [facility] TDAP 2016-07-09 Completed [facility] 00:00:00 [facility] TDAP 2016-07-09 Completed [facility] 00:00:00 [facility] TDAP 2016-07-09 Completed [facility] of 00:00:00 [facility] TDAP 2016-07-09 Completed [facility] of 00:00:00 [facility] TDAP 2016-07-09 Completed [facility] of 00:00:00 [facility] TDAP 2016-07-09 Completed [facility] 00:00:00 [facility] TDAP 2016-07-09 Completed [facility] 00:00:00 [facility] TDAP 2016-07-09 Completed [facility] 00:00:00 [facility] TDAP 2016-07-09 Completed [facility] 00:00:00 [facility] TDAP 2016-07-09 Completed [facility] 00:00:00 [facility] TDAP 2016-07-09 Completed [facility] of 00:00:00 [facility] TDAP 2016-07-09 Completed [facility] of 00:00:00 [facility] TDAP 2016-07-09 Completed [facility] 00:00:00 [facility] TDAP 2016-07-09 Completed [facility] 00:00:00 [facility] TDAP 2016-07-09 Completed [facility] of 00:00:00 [facility] TDAP 2016-07-09 Completed [facility] of 00:00:00 [facility] TDAP 2016-07-09 Completed [facility] of 00:00:00 [facility] TDAP 2016-07-09 Completed [facility] of 00:00:00 [facility] TDAP 2016-07-09 Completed [facility] of 00:00:00 [facility] TDAP 2016-07-09 Completed [facility] of 00:00:00 [facility] TDAP 2016-07-09 Completed [facility] of 00:00:00 [facility] TDAP 2016-07-09 Completed [facility] of 00:00:00 [facility] TDAP 2016-07-09 Completed [facility] of 00:00:00 [facility] TDAP 2016-07-09 Completed [facility] of 00:00:00 [facility] TDAP 2016-07-09 Completed [facility] of 00:00:00 [facility] Vital Signs Vital Name Observation Time Observation Value Comments Source Systolic blood 2023-01-02 17:07:00 165 mm[Hg] Univer sity of pressure [facility] Diastolic blood 2023-01-02 17:07:00 125 mm[Hg] Unive rsity of pressure [facility] Heart rate 2023-01-02 17:07:00 120 /min [facility] Body temperature 2023-01-02 17:07:00 37.06 [facility]ona [facility] rate 2023-01-02 17:07:00 18 /min [facility] Body weight 2023-01-02 17:07:00 54.432 kg [facility] BMI 2023-01-02 17:07:00 18.79 kg/m2 [facility] ty [facility] Oxygen saturation in 2023-01-02 17:07:00 99 /min [facility] Arterial blood by [place] [employer] shonna [facility]ulse oxim[facility] Branch Systolic blood 2022-03-08 15:27:00 118 mm[Hg] Univer sity of pressure [facility] Diastolic blood 2022-03-08 15:27:00 88 mm[Hg] Unive rsity of pressure [facility] Heart rate 2022-03-08 15:27:00 96 /min [facility]i ty [facility] Body temperature 2022-03-08 15:27:00 36.67 Ramona Univ ersity of [facility] Respiratory rate 2022-03-08 15:27:00 18 /min Univ ersity of [facility] Body height 2022-03-08 15:27:00 170.2 cm [facility] Body weight 2022-03-08 15:27:00 54.432 kg [facility] BMI 2022-03-08 15:27:00 18.79 kg/m2 [facility] Oxygen saturation in 2022-03-08 15:27:00 99 /min [facility] Arterial blood by [place] [employer] shonna [facility] Systolic blood 2021-04-17 23:10:00 102 mm[Hg] Univer sity of pressure [facility] Diastolic blood 2021-04-17 23:10:00 76 mm[Hg] Unive rsity of pressure [facility] Heart rate 2021-04-17 23:10:00 80 /min [facility]i ty [facility] Body temperature 2021-04-17 23:10:00 37.33 Ramona Univ ersity of [facility] Respiratory rate 2021-04-17 23:10:00 16 /min Univ ersity of [facility] Body height 2021-04-17 23:10:00 170.2 cm [facility] Body weight 2021-04-17 23:10:00 54.432 kg [facility] BMI 2021-04-17 23:10:00 18.79 kg/m2 [facility] Oxygen saturation in 2021-04-17 23:10:00 100 /min [facility] Arterial blood by [facility] shonna P[facility] Systolic blood 2021-04-15 18:00:00 136 mm[Hg] Univer sity of pressure [facility] Diastolic blood 2021-04-15 18:00:00 95 mm[Hg] Unive rsity of pressure [facility] Heart rate 2021-04-15 18:00:00 93 /min [facility]i [facility] Body temperature 2021-04-15 18:00:00 36.61 Ramona Univ ersity of [facility] Respiratory rate 2021-04-15 18:00:00 14 /min Univ ersity of [facility] Body height 2021-04-15 18:00:00 170.2 cm [facility] Body weight 2021-04-15 18:00:00 54.432 kg [facility] BMI 2021-04-15 18:00:00 18.79 kg/m2 [facility] Oxygen saturation in 2021-04-15 18:00:00 100 /min [facility] Arterial blood by [facility] Pulse oximetry Branch Systolic blood 2021-03-17 07:00:00 112 mm[Hg] Univer sity of pressure [facility] Diastolic blood 2021-03-17 07:00:00 85 mm[Hg] Unive rsity of pressure [facility] Heart rate 2021-03-17 07:00:00 71 /min [facility] Respiratory rate 2021-03-17 07:00:00 18 /min Univ ersity of [facility] Oxygen saturation in 2021-03-17 07:00:00 100 /min [facility] Arterial blood by [facility] shonna [facility] Body temperature 2021-03-17 04:17:00 36.56 Ramona Univ ersity of [facility] Body height 2021-03-17 04:17:00 172.7 cm [facility] Body weight 2021-03-17 04:17:00 52.164 kg [facility] BMI 2021-03-17 04:17:00 17.49 kg/m2 [facility] Systolic blood 2021-01-13 05:57:00 116 mm[Hg] Univer sity of pressure [facility] Diastolic blood 2021-01-13 05:57:00 85 mm[Hg] Unive rsity of pressure [facility] Heart rate 2021-01-13 05:57:00 90 /min [facility] Respiratory rate 2021-01-13 05:57:00 19 /min Univ ersity of [facility] Oxygen saturation in 2021-01-13 05:57:00 100 /min [facility] Body temperature 2021-01-13 03:09:00 35.89 Ramona Univ ersity of [facility] Body height 2021-01-13 03:09:00 172.7 cm [facility] Body weight 2021-01-13 03:09:00 54.432 kg [facility] BMI 2021-01-13 03:09:00 18.25 kg/m2 [facility] Systolic blood 2021-01-07 23:38:00 139 mm[Hg] Univer sity of pressure [facility] Diastolic blood 2021-01-07 23:38:00 98 mm[Hg] Unive rsity of pressure [facility] Heart rate 2021-01-07 23:38:00 110 /min [facility] Body temperature 2021-01-07 23:38:00 36.89 Ramona Univ ersity of [facility] Respiratory rate 2021-01-07 23:38:00 18 /min Univ ersity of [facility] Body weight 2021-01-07 23:38:00 54.432 kg [facility] BMI 2021-01-07 23:38:00 18.79 kg/m2 [facility] Oxygen saturation in 2021-01-07 23:38:00 100 /min [facility] by [place] [facility] Systolic blood 2020-12-02 20:26:00 128 mm[Hg] Univer sity of pressure [facility] Diastolic blood 2020-12-02 20:26:00 93 mm[Hg] Unive rsity of pressure [facility] Heart rate 2020-12-02 20:26:00 108 /min [facility] Respiratory rate 2020-12-02 20:26:00 18 /min Univ ersity of [facility] Oxygen saturation in 2020-12-02 20:26:00 100 /min [facility] [place] [facility] Body temperature 2020-12-02 18:39:00 37.06 Ramona Univ ersity of [facility] Body weight 2020-12-02 18:39:00 49.896 kg [facility] BMI 2020-12-02 18:39:00 17.23 kg/m2 [facility] Systolic blood 2020-12-02 20:26:00 128 mm[Hg] Univer sity of pressure [facility] Diastolic blood 2020-12-02 20:26:00 93 mm[Hg] Unive rsity of pressure [facility] Heart rate 2020-12-02 20:26:00 108 /min [facility] Respiratory rate 2020-12-02 20:26:00 18 /min Univ ersity of [facility] Oxygen saturation in 2020-12-02 20:26:00 100 /min [facility] Arterial blood by [place] [employer] shonna [facility] Body temperature 2020-12-02 18:39:00 37.06 Ramona Univ ers[facility] Body weight 2020-12-02 18:39:00 49.896 kg [facility] BMI 2020-12-02 18:39:00 17.23 kg/m2 [facility] Systolic blood 2020-09-06 21:40:14 103 mm[Hg] Univer sity of pressure [facility] Diastolic blood 2020-09-06 21:40:14 69 mm[Hg] Unive rsity of pressure [facility] Heart rate 2020-09-06 21:40:14 86 /min [facility] Body temperature 2020-09-06 21:40:14 36.5 Ramona Univ ers[facility] of [facility] Respiratory rate 2020-09-06 21:40:14 20 /min Univ ersity of [facility] Body weight 2020-09-06 19:50:00 52.617 kg [facility] BMI 2020-09-06 19:50:00 18.17 kg/m2 [facility] Oxygen saturation in 2020-09-06 19:50:00 100 /min [facility] Arterial blood by [place] [employer] shonna [facility] Systolic blood 2020-09-06 21:40:14 103 mm[Hg] Univer sity of pressure [facility] Diastolic blood 2020-09-06 21:40:14 69 mm[Hg] Unive rsity of pressure [facility] Heart rate 2020-09-06 21:40:14 86 /min Universi ty of [facility] Body temperature 2020-09-06 21:40:14 36.5 Ramona Univ ersity of [facility] Respiratory rate 2020-09-06 21:40:14 20 /min Univ ersity of [facility] Body weight 2020-09-06 19:50:00 52.617 kg Universi ty of [facility] BMI 2020-09-06 19:50:00 18.17 kg/m2 Universi ty of [facility] Oxygen saturation in 2020-09-06 19:50:00 100 /min [facility] Arterial blood by [facility] Pulse oximetry Branch Systolic blood 2020-08-18 20:54:00 110 mm[Hg] Univer sity of pressure [facility] Diastolic blood 2020-08-18 20:54:00 70 mm[Hg] Unive rsity of pressure [facility] Heart rate 2020-08-18 20:54:00 79 /min Universi ty of [facility] Body temperature 2020-08-18 20:54:00 36.56 Ramona Univ ersity of [facility] Respiratory rate 2020-08-18 20:54:00 16 /min Univ ersity of [facility] Body height 2020-08-18 20:54:00 170.2 cm [facility] ty [facility] Body weight 2020-08-18 20:54:00 52.816 kg [facility] BMI 2020-08-18 20:54:00 18.24 kg/m2 Universi ty of [facility] Systolic blood 2020-08-18 20:54:00 110 mm[Hg] Univer sity of pressure [facility] Diastolic blood 2020-08-18 20:54:00 70 mm[Hg] Unive rsity of pressure [facility] Heart rate 2020-08-18 20:54:00 79 /min Universi ty of [facility] Body temperature 2020-08-18 20:54:00 36.56 Ramona [facility] Respiratory rate 2020-08-18 20:54:00 16 /min Univ ersity of [facility] Body height 2020-08-18 20:54:00 170.2 cm [facility] Body weight 2020-08-18 20:54:00 52.816 kg [facility] BMI 2020-08-18 20:54:00 18.24 kg/m2 [facility] Systolic blood 2020-08-05 20:25:00 108 mm[Hg] Univer sity of pressure [facility] Diastolic blood 2020-08-05 20:25:00 80 mm[Hg] Unive rsity of pressure [facility] Heart rate 2020-08-05 20:25:00 84 /min [facility] Respiratory rate 2020-08-05 20:25:00 18 /min Univ ersity of [facility] Oxygen saturation in 2020-08-05 20:25:00 99 /min [facility] Arterial blood by [employer] [facility] Body temperature 2020-08-05 20:17:00 36.61 Ramona Univ ersity of [facility] Body weight 2020-08-05 20:17:00 52.164 kg [facility] BMI 2020-08-05 20:17:00 18.01 kg/m2 [facility] Systolic blood 2020-06-29 19:00:00 101 mm[Hg] Univer sity of pressure [facility] Diastolic blood 2020-06-29 19:00:00 76 mm[Hg] Unive rsity of pressure [facility] Heart rate 2020-06-29 19:00:00 63 /min [facility] Respiratory rate 2020-06-29 19:00:00 18 /min Univ ersity of [facility] Oxygen saturation in 2020-06-29 19:00:00 100 /min [facility] Arterial blood by [employer] [facility] Body temperature 2020-06-29 17:11:00 36.33 Ramona Univ [facility] Body height 2020-06-29 17:11:00 170.2 cm [facility] Body weight 2020-06-29 17:11:00 52.164 kg [facility] BMI 2020-06-29 17:11:00 18.01 kg/m2 [facility] Systolic blood 2020-05-31 18:41:00 122 mm[Hg] Univer sity of pressure [facility] Diastolic blood 2020-05-31 18:41:00 84 mm[Hg] Unive rsity of pressure [facility] Heart rate 2020-05-31 18:41:00 91 /min [facility] Body temperature 2020-05-31 18:41:00 36.89 Ramona Univ [facility] Respiratory rate 2020-05-31 18:41:00 16 /min Univ ersity of [facility] Body height 2020-05-31 18:41:00 170.2 cm [facility] Body weight 2020-05-31 18:41:00 52.935 kg [facility] BMI 2020-05-31 18:41:00 18.28 kg/m2 [facility] Systolic blood 2020-05-18 18:32:00 119 mm[Hg] Univer sity of pressure [facility] Diastolic blood 2020-05-18 18:32:00 79 mm[Hg] Unive rsity of pressure [facility] Heart rate 2020-05-18 18:32:00 88 /min [facility] Body temperature 2020-05-18 18:32:00 36.39 Ramona [facility] Respiratory rate 2020-05-18 18:32:00 16 /min Univ ersity of [facility] Body height 2020-05-18 18:32:00 172.7 cm [facility] Body weight 2020-05-18 18:32:00 54.386 kg [facility] BMI 2020-05-18 18:32:00 18.23 kg/m2 [facility] Systolic blood 2019-10-06 21:50:00 97 mm[Hg] Univer sity of pressure [facility] Diastolic blood 2019-10-06 21:50:00 64 mm[Hg] Unive rsity of pressure [facility] Heart rate 2019-10-06 21:50:00 81 /min [facility] Body temperature 2019-10-06 21:50:00 36.11 Ramona Univ [facility] Respiratory rate 2019-10-06 21:50:00 16 /min [facility] Body height 2019-10-06 21:50:00 170.2 cm Universi ty [facility] Body weight 2019-10-06 21:50:00 51.909 kg Universi ty [facility] BMI 2019-10-06 21:50:00 17.92 kg/m2 Universi ty [facility] Systolic blood 2019-09-09 19:12:00 111 mm[Hg] Univer sity of pressure [facility] Diastolic blood 2019-09-09 19:12:00 81 mm[Hg] Unive rsity of [facility] Heart rate 2019-09-09 19:12:00 92 /min Universi ty [facility] Body temperature 2019-09-09 19:12:00 36.11 Ramona [facility] Respiratory rate 2019-09-09 19:12:00 16 /min [facility] Body height 2019-09-09 19:12:00 170.2 cm Universi ty [facility] Body weight 2019-09-09 19:12:00 [facility] BMI 2019-09-09 19:12:00 17.31 kg/m2 [facility] Procedures Procedure Date / Time Performed Performing Clinician [facility] e CONSENT/REFUSAL FOR 2023-01-02 16:57:27 Doctor Unassigned, No Un [facility] DIAGNOSIS AND Name [facility] TREATMENT POCT TEST 2021-04-18 01:57:00 Jay Sharp [facility] LIPASE 2021-04-18 01:50:00 Jay Sharp [facility] COMP. METABOLIC PANEL 2021-04-18 01:50:00 Jay Sharp Un [facility] ([id number]) [facility] CBC WITH DIFF 2021-04-18 01:50:00 Jay Sharp [facility] URINALYSIS 2021-04-18 01:50:00 Jay Sharp [facility] LIPASE 2021-03-17 04:41:00 Susan Santos [facility] COMP. METABOLIC PANEL 2021-03-17 04:41:00 Susan Santos [facility] ([id number]) Medical Branch CBC WITH DIFF 2021-03-17 04:41:00 Susan Santos [facility] RAPID STREP SCREEN FOR 2021-03-17 04:41:00 Susan Santos [facility] GROUP A Medical Branch COVID-19 (ID NOW RAPID 2021-03-17 04:41:00 Susan Santos [facility] TESTING) Medical Branch URINALYSIS 2021-03-17 04:40:00 Susan Santos [facility] POCT TEST 2021-03-17 04:37:00 Susan Santos [facility] CONSENT/REFUSAL FOR 2021-03-17 03:46:07 Doctor Unassigned, No [facility] Name [facility] TREATMENT POCT TEST 2021-01-13 06:24:00 Susan Santos [facility] LIPASE 2021-01-13 03:33:00 Susan Santos [facility] COMP. METABOLIC PANEL 2021-01-13 03:33:00 Susan Santos [facility] ([id number]) Medical Branch CBC WITH DIFF 2021-01-13 03:33:00 Susan Santos [facility] NOTICE OF PRIVACY 2021-01-13 03:04:54 Doctor Unassigned, No [facility] [place] CONSENT/REFUSAL FOR 2021-01-13 03:02:27 Doctor Unassigned, [facility] AND Name [facility] TREATMENT POCT TEST 2021-01-08 00:38:00 Reina Velázquez [facility] COVID-19 (ID NOW RAPID 2020-12-02 19:43:00 Pattie [facility]ney [facility] Medical Branch BASIC METABOLIC PANEL 2020-12-02 19:42:00 Pattie Carney [facility] (NA, K, CL, CO2, Medical Branch GLUCOSE, BUN, CREATININE, CA) CBC WITH DIFF 2020-12-02 19:42:00 Pattie Carney [facility] POCT TEST 2020-12-02 19:33:00 [facility] XR KUB 2020-09-06 21:27:02 Stanislaw [facility] POCT TEST 2020-09-06 21:11:00 Stanislaw Rojelio [facility] URINALYSIS 2020-09-06 20:42:00 Stanislaw [facility] CONSENT/REFUSAL FOR 2020-09-06 19:47:07 Doctor Unassigned, No [facility]AGNOS[facility] AND Name [facility] [place] TREATMENT POCT TEST 2020-08-05 20:40:00 Mimi Lockett [facility] CONSENT/REFUSAL FOR 2020-08-05 20:07:46 Doctor Unassigned, No [facility] [place] DIAGNOSIS AND Name [facility] TREATMENT RAPID STREP SCREEN FOR 2020-06-29 17:55:00 Kenny Gonzales [facility] GROUP A Medical Branch LIPASE 2020-06-29 17:21:00 Kenny Gonzales Lisa Hudson o [facility] MAGNESIUM 2020-06-29 17:21:00 Kenny Gonzales [facility] COMP. METABOLIC PANEL 2020-06-29 17:21:00 Kenny Gonzales [facility] ([id number]) Medical [place] CBC WITH DIFF 2020-06-29 17:21:00 Kenny Gonzales [facility] o [facility] URINALYSIS 2020-06-29 17:21:00 Janet, K [facility] POCT TEST 2020-06-29 17:21:00 Kenny Gonzales [facility] NOTICE OF PRIVACY 2020-06-29 17:06:20 Doctor Unassigned, No [facility] [place] PRACTICES Name [facility] CONSENT/REFUSAL FOR 2020-06-29 17:06:10 Doctor Unassigned, No [facility] [place] DIAGNOSIS AND Name Medical Branch TREATMENT POCT TEST 2020-05-31 00:00:00 [facility]ACC ([id number]), 2020-05-18 18:56:[address] [facility] 6+ MONTHS, IM, QUAD Medical Bran ch ASSIGNMENT OF BENEFITS 2020-05-18 18:39:03 Doctor Unassigned, No [facility] Name Medical Branch DISCLOSURE AND 2019-10-06 06:01:00 Doctor Unassigned, No [facility] CONSENT, MEDICAL AND Name Medical [facility] SURGICAL PROCEDURES POCT RAPID STREP 2019-09-09 19:38:00 Mayra Giron [facility] SCREEN FOR GROUP A Medical Branc h POCT RAPID FLU A AND B 2019-09-09 19:38:00 Mayra Giron [facility] Plan of Care Planned Activity Planned Date Details Comments Source Future Scheduled 2026-07-09 DTAP/TDAP/TD VACCINES [facility] Test 00:00:00 (2 - Td or Tdap) Medical [facility] [code = DTAP/TDAP/TD VACCINES (2 - Td or Tdap)] Future Scheduled 2022-01-[address] [facility] Test 00:[facility]:00 malignant neoplasm of Medica l Center cervix (procedure) [code = 421369678] Future Scheduled 2021-04-[address] [facility] Test 00:00:00 (#1) [code = Medical Center INFLUENZA VACCINE (#1)] Future Scheduled 2020-08-[address] [facility] Test 00:00:00 (12+) [code = Medical Center DEPRESSION SCREENING (12+)] Future Scheduled 2010 HEPATITIS C SCREENING [facility] Test 00:00:00 [code = HEPATITIS C Medical Center SCREENING] Future Scheduled 2004 COVID-19 VACCINE (1) [facility] Test 00:00:00 [code = COVID-[address] VACCINE (1)] Encounters Start End Encounter Admission Attending Care Care Encounter Source Date/Time Date/Time Type Type Clinicians Facility Department ID 2021-06-12 Emergency [facility] [id number] Univers 20:40:49 ity [facility] 2021-06-12 Emergency [facility] [id number] Univers 20:28:[address] [facility] [place] 2021-06-12 Emergency [facility] [id number] Univers 13:34:15 ity of [facility] 2021-06-11 Emergency [facility] [id number] Univers 23:04:53 ity of [facility] 2021-06-11 Emergency [facility] [id number] Univers 22:08:37 ity of [facility] 2021-06-11 Emergency [facility] [id number] Univers 14:55:58 ity of [facility] 2021-06-10 Emergency [facility] [id number] Univers 22:29:34 ity of [facility] 2021-06-10 Emergency [facility] [id number] Univers 13:08:33 ity of [facility] 2021-06-10 Emergency [facility] [id number] Univers 06:21:02 ity of [facility] 2023-01-02 2023-01-02 Emergency X , [facility] ERT [id number] Univers 12:10:00 12:51:00 [place] sears [facility] 2023-01-02 2023-01-02 Emergency [facility] [id number] Univers 12:10:00 12:51:00 [place] PHAM [id number] i ty [facility] [id number] [facility] [id number] [address] 2022-04-10 2022-04-10 Emergency Emergency Skefos, [facility] [id number] [facility] 16:47:00 16:47:00 Chrystan 07 2022-04-10 2022-04-10 Emergency [facility] [id number] [facility] 16:47:00 16:47:00 07 2022-03-08 2022-03-08 Emergency X ANGELIKA [facility] ERT [id number] Univers 10:28:00 10:57:00 PATTIE angelarenee [facility] 2022-03-08 2022-03-08 Emergency [facility] [id number] Univers 10:28:00 10:57:00 Pattie PHAM [id number] ity of [place] 4.2.7.2.686 [facility] [id number] [address] 2021-05-31 2021-05-31 Outpatient R KAELA, [facility] [id number] Univers 13:00:00 13:00:00 PENNY harding [place] [facility] 2021-04-17 2021-04-17 Emergency Aron, [facility] [id number] Univers 18:16:00 23:07:00 Jay Pham [id number] ity of [place] 4.2.7.2.686 [facility] [id number] [address] 2021-04-15 2021-04-15 Emergency [facility] [id number] Univers 12:58:00 13:17:00 Ian Markie [id number] i ty of [place] 4.2.7.2.686 [facility] [id number] [address] 2021-03-16 2021-03-17 Emergency Janet, K [facility] [id number] Univers 23:46:00 02:28:00 Lisa Pham [id number] i ty of [place] 4.2.7.2.[address] [place] [id number] 2021-01-12 2021-01-13 Emergency [facility] [id number] Univers 22:05:00 01:42:00 Susan Pham [id number] ity of [place] 4.2.7.2.6 [facility] [id number] [address] 2021-01-07 2021-01-07 [facility] [id number] Univers 18:39:00 20:01:00 Reina Pham [id number] ity of [place] 4.2.7.2.686 [facility] [id number] [address] 2020-12-05 2020-12-[address] [facility] [id number] [facility] 00:00:00 00:00:00 Orders Seamus [facility] 2020-12-02 2020-12-02 Emergency [facility] 1.2.840.114 [id number] 13:36:00 16:09:00 Pattie Noe Markie [id number] [place] 4.2.7.2.686 [place] [id number] [facility] 2020-12-02 2020-12-02 Emergency [facility] [id number] Univers 13:36:00 16:09:00 Pattie Liu Markie [id number] ity of [place] 4.2.7.2.686 [facility] [id number] [address] 2020-09-06 2020-09-[address] [facility] [id number] 13:53:00 15:52:00 [facility] [id number] [facility] 4.2.7.2.686 [facility] [id number] [address] ([facility]) 2020-09-06 2020-09-[address] [facility] [id number] Univers 13:53:00 15:52:00 [facility] [id number] it y of [facility] 4.2.7.2.686 [facility] [phone] [address] ([facility]) 2020-09-06 2020-09-06 Emergency X [facility] ERT [id number] Univers 13:53:00 15:52:00 ROJELIO [facility] 2020-09-02 2020-09-02 Outpatient R MACK [facility] [id number] Univers 13:30:00 13:30:00 MAYRA sears o f [facility] 2020-08-18 2020-08-18 Office [facility] [id number] 14:38:58 15:09:27 Visit Mayra Montemayor [employer] [id number] [facility] 4.2.7.2.686 MATERNAL [id number] & CHILD [address] [place] [address] 2020-08-18 2020-08-18 Office [facility] [id number] Univers 14:38:58 15:09:27 Visit Mayra Montemayor [employer]CH[employer] [id number] ity of [facility] 4.2.7.2.686 Gt as MATERNAL [phone] Med ical & CHILD 107 [facility] 2020-08-18 2020-08-18 [facility] [id number] Univers 13:15:00 13:15:00 MAYRA burris [facility] 2020-08-05 2020-08-05 Emergency [facility] [id number] Univers 14:12:00 15:30:00 [place] 350.1.13.10 i ty [place]2.7.2.686 [place] [phone] [address] 2020-07-04 2020-07-04 Letter CITLALY Condon 1.2.840.114 [id number] Univers 00:00:00 00:00:00 (Out) Gail GRECO [id number] it y of [facility] 4.2.7.2.686 Gt as [phone] [facility] 019 [place] 2020-06-29 2020-06-29 Emergency Kenny Gonzales [facility] 1.2.840.114 [id number] Univers 11:07:00 14:24:00 Lisa Pham 350.1.13.10 i ty of [place] 4.2.7.2.686 [place] [id number] [address] 2020-06-29 2020-06-29 Orders Doctor BOUCHER 1.2.840.114 [id number] Univers 00:00:00 00:00:00 Only Unassigned, FANNIE [id number] ity of [place] [facility] 4.2.7.2.686 Gt as [id number] [address] 2020-06-08 2020-06-08 [facility] [id number] Univers 13:15:00 13:15:00 MAYRA burris [facility] 2020-06-01 2020-06-01 Telephone [facility] [id number] Univers 00:00:00 00:00:00 Penny R [employer] [id number] ity of [facility] 4.2.7.2.686 Gt [address] MATERNAL [id number] [facility] & CHILD [address] [place] [address] 2020-05-31 2020-05-31 Office Kaela [facility] 1.2.840.114 [id number] Univers 13:29:00 14:25:45 Visit Penny R [employer] [id number] ity of [facility] 4.2.7.2.686 Gt as MATERNAL [phone] [address] 2020-05-31 2020-05-31 [facility] [id number] Univers 13:30:00 13:30:00 PENNY burris [facility] 2020-05-18 2020-05-18 Nurse Visit, [facility] 1.2 .840.114 [id number] Univers 13:23:28 13:38:12 Visit Mayra Giron [employer] 350.1.13. 10 ity of [facility] 4.2.7.2.686 Gt as MATERNAL [id number] [facility] & [address] 2020-05-18 2020-05-18 Outpatient R MACK, [facility] [id number] Univers 13:30:00 13:30:00 MAYRA burris [facility] 2020-05-18 2020-05-18 Orders Doctor BOUCHER 1.2.840.114 [id number] Univers 00:00:00 00:00:00 Only Unassigned, FANNIE 350.1.13.10 ity of [place] [address]686 Gt as [id number] [address] 2020-04-28 2020-04-28 Outpatient R AKINRAMU, [facility] [id number] Univers 09:15:00 09:15:00 MAYRA burris [facility] 2020-01-11 2020-01-11 [facility] [id number] Univers 08:15:00 08:15:00 MAYRA millery o f [facility] 2019-10-06 2019-10-06 Office [facility] [id number] Univers 15:32:19 16:10:25 Visit Mayra Montemayor [employer] [id number] ity of [facility] 4.2.7.2.686 Gt as MATERNAL [phone] [address] 2019-10-06 2019-10-06 Outpatient R [facility] [id number] Univers 15:30:00 15:30:00 MAYRA millery o f [facility] 2019-10-06 2019-10-06 Orders Doctor CITLALY 1.2.840.114 [id number] Univers 00:00:00 00:00:00 Only Unassigned, FANNIE 350.1.13.10 ity of [place] [facility] 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 The fatal concentrationhas been reported to be >400mg/dL. Coronavirus PCR, COVID19 [id number] 17:51:00 Test Item Value Reference Range Interpretation Comments Coronavirus PCR, For use under Emergency COVID19 Rapid (test Use Authorization (EUA) code = SARSCOV2) only. Coronavirus PCR, Reference Range: COVID19 Rapid (test Negative code = CFHWWNB62.1) SARS-CoV-2 PCR Result: Negative by RT-PCR (test code = SARS-CoV-2 PCR Result:) COVID-19 Status: AsymptomaticUA, Urinalysis Rflx Cult/[id number] 17:51:00 Test Item Value Reference Range Interpretation Comments Color,Urine (test code = UCOL) Yellow Yellow Clarity,Urine (test code = Clear Clear UCLAR) Ph, Urine (test code = UPH) 7.0 5.0-9.0 N Specific [place],Urine (test <= 1.005 1.005-1.030 N code = USG) Blood,Urine (test code = UBLD) Negative mg/dL Negative Protein,Urine (test code = Negative mg/dL Negative UPRO) Glucose,Urine (UA) (test code Negative mg/dL Negative = UGLU) Ketones,Urine (test code = Negative mg/dL Negative UKET) Nitrate,Urine (test code = Negative Negative UNIT) Bilirubin,Urine (test code = Negative mg/dL Negative UBIL) Urobilinogen,Urine (test code 0.2 E.U./dL Normal = UURO) Leukocyte Esterase,Urine (test Trace mg/dL Negative A code = ULEU) Urine [id number] 17:51:00 Test Item Value Reference Range Interpretation Comments RBC,Urine (test code = URBCUF) None Seen /HPF 0-2 WBC,Urine (test code = UWBCUF) None Seen /HPF 0-5 Epithelial Cell,Urine (test None Seen /HPF 0-5 code = UECUF) Casts,Urine (test code = None Seen /LPF None Seen UCASTUF) Bacteria,Urine (test code = Rare /hpf None Seen UBACTUF) Complete Blood Count Auto [id number] 17:51:00 Test Item Value Reference Range Interpretation Comments White Blood Count (test code = 11.8 x10 3/uL 4.4-10.5 H WBCT) Red Blood Count (test code = 4.28 x10 6/uL 3.75-5.20 N RBC) Hemoglobin (test code = HGBT) 13.4 g/dL 12.2-14.8 N Hematocrit (test code = HCTT) 39.8 % 36.5-44.4 N Mean Corpuscular Volume (test 93.00 fL 80.00-100.00 N code = MCV) Mean Corpuscular Hemoglobin 31.3 pg 27.0-32.5 N (test code = MCH) Mean Corpuscular HGB Conc 33.70 g/dL 32.00-37.50 N (test code = MCHC) RDW Coefficient of Variation 12.2 % 11.5-14.5 N (test code = RDWCV) Platelet Count (test code = 334.0 x10 3/uL 140.0-440.0 N PLTT) Mean Platelet Volume (test 9.3 fL code = MPV) Immature Granulocytes % (Auto) 0.3 % 0.0-5.0 N (test code = IMMGRAN%) Neutrophils % (Auto) (test 52.1 % 36.0-70.0 N code = NE%) Lymphocytes % (Auto) (test 33.1 % 12.0-44.0 N code = LY%) Monocytes % (Auto) (test code 9.8 % 0.0-11.0 N = MO%) Eosinophils % (Auto) (test 4.2 % 0.0-7.0 N code = EO%) Basophils % (Auto) (test code 0.5 % 0.0-2.0 N = BA%) Immature Granulocytes # (Auto) 0.03 x10 3/uL (test code = IMMGRAN#) Neutrophils # (Auto) (test 6.1 x10 3/uL 1.6-7.4 N code = NE#) Lymphocytes # (Auto) (test 3.90 x10 3/uL 0.50-4.60 N code = LY#) Monocytes # (Auto) (test code 1.15 x10 3/uL 0.00-1.20 N = MO#) Eosinophils # (Auto) (test 0.49 x10 3/uL 0.00-0.74 N code = EO#) Basophils # (Auto) (test code 0.06 x10 3/uL 0.00-0.21 N = BA#) nRBC Abs (test code = NRBCA) 0 nRBC Pct (test code = NRBCP) 0 % HCG, Serum Qual (LAB)2022-04-10 17:51:00 Test Item Value Reference Range Interpretation Comments HCG, Serum Qual (LAB) (test code = Negative Negative HCGQ) Drug Screen,[id number] 17:51:00 Test Item Value Reference Range Interpretation Comments PCP Phencyclidine Screen,Urine (test Negative Negative code = PCPU) Amphetamine Screen,Urine (test code Negative Negative = AMPU) Methadone Screen,Urine (test code = Negative Negative METHU) Opiate Screen,Urine (test code = Negative Negative UOPIS) Barbituates Screen,Urine (test code Negative Negative = BARBU) Benzodiazepines Screen,Urine (test Negative Negative code = UBENZS) Cocaine Screen,Urine (test code = Negative Negative UCOCS) Cannabinoid Screen,Urine (test code Negative Negative = UTHCS) Propoxyphene Screen, Urine (test Negative Negative code = UPROP) Comprehensive Metabolic [id number] 17:51:00 Test Item Value Reference Range Interpretation Comments SODIUM (test code = NA) 138.0 mmol/L 136.0-145.0 N Potassium,K (test code = K) 3.5 mmol/L 3.0-5.1 N Chloride (test code = CL) 104 mmol/L 98-107 N Carbon Dioxide (test code = CO2) 27 mmol/L 20-31 N Anion Gap (test code = GAP) 7 mmol/L 5-15 N Blood Urea Nitrogen (test code = 13 mg/dL 9-23 N BUN) Creatinine (test code = CREATT) 0.84 mg/dL 0.55-1.02 N Creatinine Clr Calc Pharmacy 84.15 mL/min (test code = CRCLPHA) Estimated GFR ( Xiao > 60 mL/min/1.73m2 (test code = EGFRAA) Estimated GFR (Non Afr Xiao > 60 mL/min/1.73m2 (test code = EGFRNAA) BUN/Creatinine Ratio (test code 15 ratio 10-20 N = BCRATIO) Glucose (test code = GLU) 98 mg/dL 74-106 N Osmolality,Calculated (test code 285.6 = OSMOC) Calcium (test code = CA) 9.4 mg/dL 8.3-10.6 N Bilirubin,Total (test code = 0.4 mg/dL 0.2-1.1 N BILIT) Aspartate Amino Transferase 19 U/L 0-34 N (test code = AST) Alanine Aminotransferase (test 13 U/L 10-49 N code = ALT) Total Protein (test code = TP) 7.3 g/dL 5.7-8.2 N Albumin Level (test code = ALB) 5.0 g/dL 3.2-4.8 H Globulin (test code = GLOB) 2.3 mg/dL 2.3-3.5 N Albumin/Globulin Ratio (test 2.2 ratio 0.8-2.0 H code = AGRATIO) Alkaline Phosphatase (test code 62 U/L 46-116 N = ALP) [id number] 02:31:26 Test Item Value Reference Range Interpretation Comments APPEARANCE (test code = Hazy Clear A 0373297747) COLOR (test code = Yellow Yellow 3082318816) PH (test code = 4.8-8.0 7943124885) SP GRAVITY (test code = 1.003-1.030 5762579074) GLU U QUAL (test code = Normal Normal 2270779043) BLOOD (test code = 3+ Negative A 5944116585) KETONES (test code = Negative Negative 0210898293) PROTEIN (test code = Negative Negative 2887-8) UROBILIN (test code = 2.0 mg/dL Normal A 0703452387) BILIRUBIN (test code = Negative Negative 2760393818) NITRITE (test code = Negative Negative 2347636320) LEUK ALEXIA (test code = 25/uL Negative A 8916800482) RBC/HPF (test code = See_Comment H [Autom ated message] 8709903375) The system [place] generated this result transmit randy reference range : 0 - 3 HPF. The refe rence range was not u sed to interpret th is result as normal/abnormal . WBC/HPF (test code = See_Comment H [Autom ated message] 0070303854) The system [place] generated this result transmit randy reference range : 0 - 5 HPF. The refe rence range was not u sed to interpret th is result as normal/abnormal . BACTERIA (test code = Few Negative A 7832198350) MUCOUS (test code = Marked Negative LPF A 4804951408) SQ EPITH (test code = HPF 4765123281) TRANS EPI (test code = <1 See_Comment [Aut omated message] 4455381711) The system [place] generated this result transmit randy reference range : <=1 HPF. The refere nce range was not u sed to interpret th is result as normal/abnormal . Lab Interpretation (test Abnormal code = 71980-1) [facility] Test Item Value Reference Range Interpretation Comments APPEARANCE (test code = Hazy Clear A 6908397006) COLOR (test code = Yellow Yellow 6445921999) PH (test code = 4.8-8.0 6480993321) SP GRAVITY (test code = 1.003-1.030 9090068503) GLU U QUAL (test code = Normal Normal 4817581167) BLOOD (test code = 3+ Negative A 4100593494) KETONES (test code = Negative Negative 7279646799) PROTEIN (test code = Negative Negative 2887-8) UROBILIN (test code = 2.0 mg/dL Normal A 3628133942) BILIRUBIN (test code = Negative Negative 5131195391) NITRITE (test code = Negative Negative 3201380275) LEUK ALEXIA (test code = 25/uL Negative A 9643742142) RBC/HPF (test code = See_Comment H [Autom ated message] 7700769419) The system [place] generated this result transmit randy reference range : 0 - 3 HPF. The refe rence range was not u sed to interpret th is result as normal/abnormal . WBC/HPF (test code = See_Comment H [Autom ated message] 2654501831) The system [place] generated this result transmit randy reference range : 0 - 5 HPF. The refe rence range was not u sed to interpret th is result as normal/abnormal . BACTERIA (test code = Few Negative A 4777383210) MUCOUS (test code = Marked Negative LPF A 8028080812) SQ EPITH (test code = HPF 8308937586) TRANS EPI (test code = <1 See_Comment [Aut omated message] 5732451351) The system [place] generated this result transmit randy reference range : <=1 HPF. The refere nce range was not u sed to interpret th is result as normal/abnormal . Lab Interpretation (test Abnormal code = 60291-2) [facility]. METABOLIC PANEL ([id number])2021-04-18 02:22:57 Test Item Value Reference Range Interpretation Comments NA (test code = 137 mmol/L 135-145 4905351531) K (test code = 3.9 mmol/L 3.5-5.0 2083197432) CL (test code = 100 mmol/L 98-108 5965028480) CO2 TOTAL (test code = 29 mmol/L 23-31 3321071763) AGAP (test code = 2-16 9893972164) BUN (test code = 11 mg/dL 7-23 4772854712) GLUCOSE (test code = 136 mg/dL 70-110 H 8319899914) CREATININE (test code = 0.69 mg/dL 0.50-1.04 4699193816) TOTAL BILI (test code = 0.4 mg/dL 0.1-1.0 4616668539) CALCIUM (test code = 9.8 mg/dL 8.6-10.6 2974578756) T PROTEIN (test code = 8.3 g/dL 6.3-8.2 H 8212423365) ALBUMIN (test code = 4.9 g/dL 3.5-5.0 2208183776) ALK PHOS (test code = 67 U/L 34-122 6957887938) ALTv (test code = 14 U/L 5-35 1742-6) AST(SGOT) (test code = 23 U/L 13-40 5663797007) eGFR (test code = mL/min/1.73m2 4498408425) KATERYNA (test code = KATERYNA) Association of Glomerular Filtration Rate (GFR) and Staging of Kidney Disease* + --+ --+ ------+| GFR (mL/min/1.73 m2) ?| With Kidney Damage ?| ?Without Kidney Damage+ --------+ --------+ +| ?>90 ?| ?Stage one ?| ? Normal ?+ ---+ ---+ -------+| ?60-89 ?| ?Stage two ?| ? Decreased GFR ? + --+ --+ ------+| ?30-59 ?| ?Stage three ?| ? Stage three ? + --+ --+ ------+| ?15-29 ?| ?Stage four ? | ? Stage four ?+ ---+ ---+ -------+| ?<15 (or dialysis) ? ?| ?Stage five ? | ? Stage five ?+ ---+ ---+ -------+ *Each stage assumes the associated GFR level has been in effect for at least three months. ?Stages 1 to 5, with or without kidney disease, indicate chronic kidney disease. Notes: Determination of stages one and two (with eGFR >59mL/min/1.73 m2) requires estimation of kidney damage for at least three months as defined by structural or functional abnormalities of the kidney, manifested by either:Pathological abnormalities or Markers of kidney damage (including abnormalities in the composition of the blood or urine or abnormalities in imaging tests). Lab Interpretation Abnormal (test code = 11463-5) [facility]. METABOLIC PANEL (31224)2021-04-18 02:22:57 Test Item Value Reference Range Interpretation Comments NA (test code = 137 mmol/L 135-145 2052537713) K (test code = 3.9 mmol/L 3.5-5.0 2286498523) CL (test code = 100 mmol/L 98-108 7211711189) CO2 TOTAL (test code = 29 mmol/L 23-31 1658303435) AGAP (test code = 2-16 1391054322) BUN (test code = 11 mg/dL 7-23 4940620948) GLUCOSE (test code = 136 mg/dL 70-110 H 2654022626) CREATININE (test code = 0.69 mg/dL 0.50-1.04 1982604159) TOTAL BILI (test code = 0.4 mg/dL 0.1-1.6 7717903178) CALCIUM (test code = 9.8 mg/dL 8.6-10.6 9311993813) T PROTEIN (test code = 8.3 g/dL 6.3-8.2 H 9596608138) ALBUMIN (test code = 4.9 g/dL 3.5-5.0 1436327980) ALK PHOS (test code = 67 U/L 34-122 3140096855) ALTv (test code = 14 U/L 5-35 1742-6) AST(SGOT) (test code = 23 U/L 13-40 5867741298) eGFR (test code = mL/min/1.73m2 4264260345) KATERYNA (test code = KATERYNA) Association of Glomerular Filtration Rate (GFR) and Staging of Kidney Disease* + --+ --+ ------+| GFR (mL/min/1.73 m2) ?| With Kidney Damage ?| ?Without Kidney Damage+ --------+ --------+ +| ?>90 ?| ?Stage one ?| ? Normal ?+ ---+ ---+ -------+| ?60-89 ?| ?Stage two ?| ? Decreased GFR ? + --+ --+ ------+| ?30-59 ?| ?Stage three ?| ? Stage three ? + --+ --+ ------+| ?15-29 ?| ?Stage four ? | ? Stage four ?+ ---+ ---+ -------+| ?<15 (or dialysis) ? ?| ?Stage five ? | ? Stage five ?+ ---+ ---+ -------+ *Each stage assumes the associated GFR level has been in effect for at least three months. ?Stages 1 to 5, with or without kidney disease, indicate chronic kidney disease. Notes: Determination of stages one and two (with eGFR >59mL/min/1.73 m2) requires estimation of kidney damage for at least three months as defined by structural or functional abnormalities of the kidney, manifested by either:Pathological abnormalities or Markers of kidney damage (including abnormalities in the composition of the blood or urine or abnormalities in imaging tests). Lab Interpretation Abnormal (test code = 16223-3) [facility] Test Item Value Reference Range Interpretation Comments LIPASE (test code = 1932110776) 20 U/L 0-220 Lab Interpretation (test code = Normal 77646-6) [facility] Test Item Value Reference Range Interpretation Comments LIPASE (test code = 6918677986) 20 U/L 0-220 Lab Interpretation (test code = Normal 83681-2) [facility] WITH [id number] 02:05:35 Test Item Value Reference Range Interpretation Comments WBC (test code = See_Comment [Automated 6690-2) message] The sy stem which generated this result transmitted reference range : 4.30 - 11.10 10*3/?L. The reference range was not used to interpret this result as normal/abnormal . RBC (test code = See_Comment [Automated 789-8) message] The sy stem which generated this result transmitted reference range : 3.93 - 5.25 10*6/?L. The reference range was not used to interpret this result as normal/abnormal . HGB (test code = 14.3 g/dL 11.6-15.0 718-7) HCT (test code = 42.1 % 35.7-45.2 4544-3) MCV (test code = 90.0 fL 80.6-95.5 787-2) MCH (test code = 30.6 pg 25.9-32.8 785-6) MCHC (test code = 34.0 g/dL 31.6-35.1 786-4) RDW-SD (test code = 39.2 fL 39.0-49.9 10516-0) RDW-CV (test code = 11.9 % 12.0-15.5 L 788-0) PLT (test code = See_Comment [Automated 777-3) message] The sy stem which generated this result transmitted reference range : 166 - 358 10*3/ ?L. The reference r grant was not used to interpret this result as normal/abnormal . MPV (test code = 8.8 fL 9.5-12.9 L 90414-9) NRBC/100 WBC (test See_Comment [Automat ed code = 3729758381) message] The system which generated this result transmitted reference range : 0.0 - 10.0 /100 WBCs. The refer ence range was not u sed to interpret th is result as normal/abnormal . NRBC x10^3 (test code <0.01 See_Comment [Auto mated = 0858426747) message] The s ystem which generated this result transmitted reference range : 10*3/?L. The reference range was not used to interpret this result as normal/abnormal . GRAN MAT (NEUT) % 58.7 % (test code = 770-8) IMM GRAN % (test code 0.30 % = 1372646112) LYMPH % (test code = 31.0 % 736-9) MONO % (test code = 7.4 % 5905-5) EOS % (test code = 2.1 % 713-8) BASO % (test code = 0.5 % 706-2) GRAN MAT x10^3(ANC) 5.41 10*3/uL 1.88-7.09 (test code = 3636596272) IMM GRAN x10^3 (test 0.03 10*3/uL 0.00-0.06 code = 1067874447) LYMPH x10^3 (test code 2.86 10*3/uL 1.32-3.29 = 731-0) MONO x10^3 (test code 0.68 10*3/uL 0.33-0.92 = 742-7) EOS x10^3 (test code = 0.19 10*3/uL 0.03-0.39 711-2) BASO x10^3 (test code 0.05 10*3/uL 0.01-0.07 = 704-7) Lab Interpretation Abnormal (test code = 73209-4) [facility] WITH [id number] 02:05:35 Test Item Value Reference Range Interpretation Comments WBC (test code = See_Comment [Automated 0690-2) message] The sy stem which generated this result transmitted reference range : 4.30 - 11.10 10*3/?L. The reference range was not used to interpret this result as normal/abnormal . RBC (test code = See_Comment [Automated 329-8) message] The sy stem which generated this result transmitted reference range : 3.93 - 5.25 10*6/?L. The reference range was not used to interpret this result as normal/abnormal . HGB (test code = 14.3 g/dL 11.6-15.0 718-7) HCT (test code = 42.1 % 35.7-45.2 4544-3) MCV (test code = 90.0 fL 80.6-95.5 787-2) MCH (test code = 30.6 pg 25.9-32.8 785-6) MCHC (test code = 34.0 g/dL 31.6-35.1 786-4) RDW-SD (test code = 39.2 fL 39.0-49.9 95107-4) RDW-CV (test code = 11.9 % 12.0-15.5 L 788-0) PLT (test code = See_Comment [Automated 777-3) message] The sy stem which generated this result transmitted reference range : 166 - 358 10*3/ ?L. The reference r grant was not used to interpret this result as normal/abnormal . MPV (test code = 8.8 fL 9.5-12.9 L 15181-6) NRBC/100 WBC (test See_Comment [Automat ed code = 6470937999) message] The system which generated this result transmitted reference range : 0.0 - 10.0 /100 WBCs. The refer ence range was not u sed to interpret th is result as normal/abnormal . NRBC x10^3 (test code <0.01 See_Comment [Auto mated = 1598654255) message] The s ystem which generated this result transmitted reference range : 10*3/?L. The reference range was not used to interpret this result as normal/abnormal . GRAN MAT (NEUT) % 58.7 % (test code = 770-8) IMM GRAN % (test code 0.30 % = 1479748870) LYMPH % (test code = 31.0 % 736-9) MONO % (test code = 7.4 % 5905-5) EOS % (test code = 2.1 % 713-8) BASO % (test code = 0.5 % 706-2) GRAN MAT x10^3(ANC) 5.41 10*3/uL 1.88-7.09 (test code = 5539964652) IMM GRAN x10^3 (test 0.03 10*3/uL 0.00-0.06 code = 2911053023) LYMPH x10^3 (test code 2.86 10*3/uL 1.32-3.29 = 731-0) MONO x10^3 (test code 0.68 10*3/uL 0.33-0.92 = 742-7) EOS x10^3 (test code = 0.19 10*3/uL 0.03-0.39 711-2) BASO x10^3 (test code 0.05 10*3/uL 0.01-0.07 = 704-7) Lab Interpretation Abnormal (test code = 94737-4) [facility] [id number] 01:57:00 Test Item Value Reference Range Interpretation Comments POCT PREG (test code = 1605) negative On board controls acceptable with present C Line (test code = 3574) POCT PREG LOT # (test code = 3575) [id number] POCT PREG TEST DATE (test 08/11/2022 code = 3576) Lab Interpretation (test code = Normal 64375-2) [facility] [id number] 01:57:00 Test Item Value Reference Range Interpretation Comments POCT PREG (test code = 1605) negative On board controls acceptable with present C Line (test code = 3574) POCT PREG LOT # (test code = 3575) [id number] POCT PREG TEST DATE (test 08/11/2022 code = 3576) Lab Interpretation (test code = Normal 99222-4) [facility] STREP SCREEN FOR GROUP [id number] 05:33:52 Test Item Value Reference Range Interpretation Comments Streptococcus pyogenes (group A) Negative Negative antigen (test code = 19377-5) Lab Interpretation (test code = Normal 83391-0) [facility]2021-03-17 05:32:36 Test Item Value Reference Range Interpretation Comments SARS-CoV-2 Rapid ID NOW Not Detected Not Detected (test code = 27664-1) KATERYNA (test code = KATERYNA) ID NOW COVID-19 Assay is an isothermal nucleic acid amplification test intended for the qualitative detection of nucleic acid from SARS-CoV-2 viral RNA in nasopharyngeal (OPERATIONAL ASSISTANT) specimens. It is used under Emergency Use Authorization (EUA) by FDA. The limit of detection (LOD) of the assay is 125 Genome Equivalents/mL. A positive result is indicative of the presence of SARS-CoV-2 RNA. ?Clinical correlation with patient history and other diagnostic information is necessary to determine patient infection status. A negative (Not Detected) result does not preclude SARS-CoV-2 infection. In patients with clinical symptoms and other tests that are consistent with SARS-CoV-2 infection, negative results should be treated as presumptive negative and a new specimen should be tested with alternative PCR molecular test. Invalid: Please collect a new specimen for repeat patient testing if clinically indicated. Lab Interpretation Normal (test code = 53479-5) [facility] with [id number] 05:13:08 Test Item Value Reference Range Interpretation Comments WBC (test code = See_Comment H [Automated 0208-2) message] The system which generated this result transmit randy reference range : 4.30 - 11.10 10*3/?L. The reference range was not used to interpret this result as normal/abnormal . RBC (test code = See_Comment [Automated 789-8) message] The system which generated this result transmit randy reference range : 3.93 - 5.25 10*6/?L. The reference range was not used to interpret this result as normal/abnormal . HGB (test code = 13.4 g/dL 11.6-15.0 718-7) HCT (test code = 39.5 % 35.7-45.2 4544-3) MCV (test code = 90.2 fL 80.6-95.5 787-2) MCH (test code = 30.6 pg 25.9-32.8 785-6) MCHC (test code = 33.9 g/dL 31.6-35.1 786-4) RDW-SD (test code = 39.7 fL 39.0-49.9 44859-3) RDW-CV (test code = 12.0 % 12.0-15.5 788-0) PLT (test code = See_Comment [Automated 777-3) message] The system which generated this result transmit randy reference range : 166 - 358 10*3/ ?L. The reference range was not u sed to interpret th is result as normal/abnormal . MPV (test code = 8.6 fL 9.5-12.9 L 41332-8) NRBC/100 WBC (test See_Comment [Automat ed code = 0515731404) message] The system which generated this result transmit randy reference range : 0.0 - 10.0 /100 WBCs. The reference range was not used to interpret this result as normal/abnormal . NRBC x10^3 (test code <0.01 See_Comment [Auto mated = 1605363849) message] The system which generated this result transmit randy reference range : 10*3/?L. The reference range was not used to interpret this result as normal/abnormal . GRAN MAT (NEUT) % 79.4 % (test code = 770-8) IMM GRAN % (test code 0.70 % = 7761988241) LYMPH % (test code = 13.8 % 736-9) MONO % (test code = 4.7 % 5905-5) EOS % (test code = 0.9 % 713-8) BASO % (test code = 0.5 % 706-2) GRAN MAT x10^3(ANC) 11.72 10*3/uL 1.88-7.09 H (test code = 1301058708) IMM GRAN x10^3 (test 0.10 10*3/uL 0.00-0.06 H code = 0145801510) LYMPH x10^3 (test code 2.03 10*3/uL 1.32-3.29 = 731-0) MONO x10^3 (test code 0.70 10*3/uL 0.33-0.92 = 742-7) EOS x10^3 (test code = 0.13 10*3/uL 0.03-0.39 711-2) BASO x10^3 (test code 0.07 10*3/uL 0.01-0.07 = 704-7) Lab Interpretation Abnormal (test code = 66861-2) [facility] Test Item Value Reference Range Interpretation Comments APPEARANCE (test code = Cloudy Clear A 7396610147) COLOR (test code = [place] Yellow A 8118232117) PH (test code = 4.8-8.0 1187527397) SP GRAVITY (test code = 1.003-1.030 9668357772) GLU U QUAL (test code = Normal Normal 6636815187) BLOOD (test code = Negative Negative 7953871094) KETONES (test code = 5 mg/dL Negative A 5893365603) PROTEIN (test code = 100 mg/dL Negative A 2887-8) UROBILIN (test code = Normal Normal 4346689525) BILIRUBIN (test code = Negative Negative 3252407947) NITRITE (test code = Positive Negative A 3684260421) LEUK ALEXIA (test code = 75/uL Negative A 1187436522) RBC/HPF (test code = See_Comment H [Autom ated message] 1035146425) The system [place] generated this result transmit randy reference range : 0 - 3 HPF. The refe rence range was not u sed to interpret th is result as normal/abnormal . WBC/HPF (test code = See_Comment H [Autom ated message] 2731278871) The system [place] generated this result transmit randy reference range : 0 - 5 HPF. The refe rence range was not u sed to interpret th is result as normal/abnormal . BACTERIA (test code = Many Negative A 5980213217) MUCOUS (test code = Slight Negative LPF A 4506834556) AMORPHOUS (test code = Rare Rare HPF 1808330992) SQ EPITH (test code = HPF 0820246046) Lab Interpretation (test Abnormal code = 56073-3) [facility] [id number] 05:07:23 Test Item Value Reference Range Interpretation Comments NA (test code = 139 mmol/L 135-145 4240010613) K (test code = 3.6 mmol/L 3.5-5.0 9650673008) CL (test code = 100 mmol/L 98-108 6663916396) CO2 TOTAL (test code 29 mmol/L 23-31 = 4497043568) AGAP (test code = 2-16 7016056893) BUN (test code = 13 mg/dL 7-23 5714624374) GLUCOSE (test code = 110 mg/dL 70-110 6909484316) CREATININE (test code 0.69 mg/dL 0.50-1.04 = 4294442078) TOTAL BILI (test code 0.4 mg/dL 0.1-1.1 = 6307118765) CALCIUM (test code = 9.8 mg/dL 8.6-10.6 8843236914) T PROTEIN (test code 8.1 g/dL 6.3-8.2 = 2799901852) ALBUMIN (test code = 4.9 g/dL 3.5-5.0 7442708042) ALK PHOS (test code = 70 U/L 34-122 8927686103) ALTv (test code = 22 U/L 5-35 1742-6) AST(SGOT) (test code 33 U/L 13-40 = 9384679940) eGFR (test code = mL/min/1.73m2 7854486700) KATERYNA (test code = KATERYNA) Association of Glomerular Filtration Rate (GFR) and Staging of Kidney Disease* + + +- +| GFR (mL/min/1.73 m2) ?| With Kidney Damage ?| ?Without Kidney Damage+ ------+ ----+ ------+| ?>90 ?| ?Stage one ?| ? Normal ?+ -+ + -+| ?60-89 ?| ?Stage two ?| ? Decreased GFR ? + + +- +| ?30-59 ?| ?Stage three ?| ? Stage three ? + + +- +| ?15-29 ?| ?Stage four ? | ? Stage four ?+ -+ + -+| ?<15 (or dialysis) ? ?| ?Stage five ? | ? Stage five ?+ -+ + -+ *Each stage assumes the associated GFR level has been in effect for at least three months. ?Stages 1 to 5, with or without kidney disease, indicate chronic kidney disease. Notes: Determination of stages one and two (with eGFR >59mL/min/1.73 m2) requires estimation of kidney damage for at least three months as defined by structural or functional abnormalities of the kidney, manifested by either:Pathological abnormalities or Markers of kidney damage (including abnormalities in the composition of the blood or urine or abnormalities in imaging tests). [facility], [id number] 05:06:42 Test Item Value Reference Range Interpretation Comments LIPASE (test code = 1494516491) 17 U/L 0-220 Lab Interpretation (test code = Normal 39771-3) [facility] [id number] 04:37:00 Test Item Value Reference Range Interpretation Comments POCT PREG (test code = 1605) NEG On board controls acceptable with YES C Line (test code = 3574) POCT PREG LOT # (test code = 3575) [id number] POCT PREG TEST DATE (test 08/11/2022 code = 3576) Lab Interpretation (test code = Normal 61966-2) [facility] [id number] 06:24:00 Test Item Value Reference Range Interpretation Comments POCT PREG (test code = 1605) negative On board controls acceptable with present C Line (test code = 3574) POCT PREG LOT # (test code = 3575) [id number] POCT PREG TEST DATE (test 07/11/2022 code = 3576) Lab Interpretation (test code = Normal 35335-3) [facility], [id number] 06:06:35 Test Item Value Reference Range Interpretation Comments LIPASE (test code = 9239979586) <10 0-220 Lab Interpretation (test code = Normal 93217-5) [facility] [id number] 05:44:05 Test Item Value Reference Range Interpretation Comments NA (test code = 139 mmol/L 135-145 4602593921) K (test code = 3.8 mmol/L 3.5-5.0 3955444484) CL (test code = 101 mmol/L 98-108 6906705877) CO2 TOTAL (test code 30 mmol/L 23-31 = 1052289396) AGAP (test code = 2-16 6768223703) BUN (test code = 14 mg/dL 7-23 9508727073) GLUCOSE (test code = 106 mg/dL 70-110 0043405105) CREATININE (test code 0.72 mg/dL 0.50-1.04 = 7850037604) TOTAL BILI (test code 0.5 mg/dL 0.1-1.1 = 6190610650) CALCIUM (test code = 9.9 mg/dL 8.6-10.6 6542215834) T PROTEIN (test code 7.8 g/dL 6.3-8.2 = 0872534140) ALBUMIN (test code = 4.8 g/dL 3.5-5.0 0440634674) ALK PHOS (test code = 59 U/L 34-122 4397782082) ALTv (test code = 14 U/L 5-35 1742-6) AST(SGOT) (test code 38 U/L 13-40 = 0418815278) eGFR (test code = mL/min/1.73m2 2005528292) KATERYNA (test code = KATERYNA) Association of Glomerular Filtration Rate (GFR) and Staging of Kidney Disease* + + +- +| GFR (mL/min/1.73 m2) ?| With Kidney Damage ?| ?Without Kidney Damage+ ------+ ----+ ------+| ?>90 ?| ?Stage one ?| ? Normal ?+ -+ + -+| ?60-89 ?| ?Stage two ?| ? Decreased GFR ? + + +- +| ?30-59 ?| ?Stage three ?| ? Stage three ? + + +- +| ?15-29 ?| ?Stage four ? | ? Stage four ?+ -+ + -+| ?<15 (or dialysis) ? ?| ?Stage five ? | ? Stage five ?+ -+ + -+ *Each stage assumes the associated GFR level has been in effect for at least three months. ?Stages 1 to 5, with or without kidney disease, indicate chronic kidney disease. Notes: Determination of stages one and two (with eGFR >59mL/min/1.73 m2) requires estimation of kidney damage for at least three months as defined by structural or functional abnormalities of the kidney, manifested by either:Pathological abnormalities or Markers of kidney damage (including abnormalities in the composition of the blood or urine or abnormalities in imaging tests). [facility] with [id number] 05:04:46 Test Item Value Reference Range Interpretation Comments WBC (test code = See_Comment H [Automated 4289-2) message] The system which generated this result transmit randy reference range : 4.30 - 11.10 10*3/?L. The reference range was not used to interpret this result as normal/abnormal . RBC (test code = See_Comment [Automated 099-8) message] The system which generated this result transmit randy reference range : 3.93 - 5.25 10*6/?L. The reference range was not used to interpret this result as normal/abnormal . HGB (test code = 13.6 g/dL 11.6-15.0 718-7) HCT (test code = 40.2 % 35.7-45.2 4544-3) MCV (test code = 90.5 fL 80.6-95.5 787-2) MCH (test code = 30.6 pg 25.9-32.8 785-6) MCHC (test code = 33.8 g/dL 31.6-35.1 786-4) RDW-SD (test code = 40.9 fL 39.0-49.9 61687-4) RDW-CV (test code = 12.4 % 12.0-15.5 788-0) PLT (test code = See_Comment [Automated 777-3) message] The system which generated this result transmit randy reference range : 166 - 358 10*3/ ?L. The reference range was not u sed to interpret th is result as normal/abnormal . MPV (test code = 9.0 fL 9.5-12.9 L 58005-5) NRBC/100 WBC (test See_Comment [Automat ed code = 6515079876) message] The system which generated this result transmit randy reference range : 0.0 - 10.0 /100 WBCs. The reference range was not used to interpret this result as normal/abnormal . NRBC x10^3 (test code <0.01 See_Comment [Auto mated = 8919166169) message] The system which generated this result transmit randy reference range : 10*3/?L. The reference range was not used to interpret this result as normal/abnormal . GRAN MAT (NEUT) % 77.1 % (test code = 770-8) IMM GRAN % (test code 0.40 % = 7838581017) LYMPH % (test code = 15.5 % 736-9) MONO % (test code = 5.4 % 5905-5) EOS % (test code = 1.1 % 713-8) BASO % (test code = 0.5 % 706-2) GRAN MAT x10^3(ANC) 10.08 10*3/uL 1.88-7.09 H (test code = 8959764780) IMM GRAN x10^3 (test 0.05 10*3/uL 0.00-0.06 code = 7648354714) LYMPH x10^3 (test code 2.02 10*3/uL 1.32-3.29 = 731-0) MONO x10^3 (test code 0.71 10*3/uL 0.33-0.92 = 742-7) EOS x10^3 (test code = 0.14 10*3/uL 0.03-0.39 711-2) BASO x10^3 (test code 0.07 10*3/uL 0.01-0.07 = 704-7) Lab Interpretation Abnormal (test code = 66709-6) [facility] [id number] 00:38:00 Test Item Value Reference Range Interpretation Comments POCT PREG (test code = 1605) negative On board controls acceptable with C present Line (test code = 3574) Lab Interpretation (test code = Normal 02198-8) [facility] NOW R[facility]ID TESTING)2020-12-02 20:19:26 Test Item Value Reference Range Interpretation Comments SARS-CoV-2 Rapid ID NOW Positive Not Detected A (test code = 67435-2) KATERYNA (test code = KATERYNA) ID NOW COVID-19 Assay is an isothermal nucleic acid amplification test intended for the qualitative detection of nucleic acid from SARS-CoV-2 viral RNA in nasopharyngeal (OPERATIONAL ASSISTANT) specimens. It is used under Emergency Use Authorization (EUA) by FDA. The limit of detection (LOD) of the assay is 125 Genome Equivalents/mL. A positive result is indicative of the presence of SARS-CoV-2 RNA. ?Clinical correlation with patient history and other diagnostic information is necessary to determine patient infection status. A negative (Not Detected) result does not preclude SARS-CoV-2 infection. In patients with clinical symptoms and other tests that are consistent with SARS-CoV-2 infection, negative results should be treated as presumptive negative and a new specimen should be tested with alternative PCR molecular test. Invalid: Please collect a new specimen for repeat patient testing if clinically indicated. Lab Interpretation Abnormal (test code = 19164-4) [facility] Metabolic Panel (NA, K, CL, CO2, GLUCOSE, BUN, CREATININE, CA)2020-12-02 20:17:46 Test Item Value Reference Range Interpretation Comments NA (test code = 135 mmol/L 135-145 7897471257) K (test code = 3.1 mmol/L 3.5-5.0 L 2692549468) CL (test code = 102 mmol/L 98-108 7706835548) CO2 TOTAL (test code = 23 mmol/L 23-31 7006382458) AGAP (test code = 2-16 0562929012) BUN (test code = 5 mg/dL 7-23 L 8546696355) GLUCOSE (test code = 114 mg/dL 70-110 H 2556705661) CREATININE (test code = 0.71 mg/dL 0.50-1.04 3171887616) CALCIUM (test code = 9.2 mg/dL 8.6-10.6 8581121456) eGFR (test code = mL/min/1.73m2 4824420758) KATERYNA (test code = KATERYNA) Association of Glomerular Filtration Rate (GFR) and Staging of Kidney Disease* + --+ --+ ------+| GFR (mL/min/1.73 m2) ?| With Kidney Damage ?| ?Without Kidney Damage+ --------+ --------+ +| ?>90 ?| ?Stage one ?| ? Normal ?+ ---+ ---+ -------+| ?60-89 ?| ?Stage two ?| ? Decreased GFR ? + --+ --+ ------+| ?30-59 ?| ?Stage three ?| ? Stage three ? + --+ --+ ------+| ?15-29 ?| ?Stage four ? | ? Stage four ?+ ---+ ---+ -------+| ?<15 (or dialysis) ? ?| ?Stage five ? | ? Stage five ?+ ---+ ---+ -------+ *Each stage assumes the associated GFR level has been in effect for at least three months. ?Stages 1 to 5, with or without kidney disease, indicate chronic kidney disease. Notes: Determination of stages one and two (with eGFR >59mL/min/1.73 m2) requires estimation of kidney damage for at least three months as defined by structural or functional abnormalities of the kidney, manifested by either:Pathological abnormalities or Markers of kidney damage (including abnormalities in the composition of the blood or urine or abnormalities in imaging tests). Lab Interpretation Abnormal (test code = 90819-9) [facility] with [id number] 20:12:03 Test Item Value Reference Range Interpretation Comments WBC (test code = See_Comment H [Automated 6690-2) message] The system which generated this result transmit randy reference range : 4.30 - 11.10 10*3/?L. The reference range was not used to interpret this result as normal/abnormal . RBC (test code = See_Comment [Automated 789-8) message] The system which generated this result transmit randy reference range : 3.93 - 5.25 10*6/?L. The reference range was not used to interpret this result as normal/abnormal . HGB (test code = 13.3 g/dL 11.6-15.0 718-7) HCT (test code = 39.2 % 35.7-45.2 4544-3) MCV (test code = 89.7 fL 80.6-95.5 787-2) MCH (test code = 30.4 pg 25.9-32.8 785-6) MCHC (test code = 33.9 g/dL 31.6-35.1 786-4) RDW-SD (test code = 40.3 fL 39.0-49.9 89113-4) RDW-CV (test code = 12.2 % 12.0-15.5 788-0) PLT (test code = See_Comment [Automated 777-3) message] The system which generated this result transmit randy reference range : 166 - 358 10*3/ ?L. The reference range was not u sed to interpret th is result as normal/abnormal . MPV (test code = 9.3 fL 9.5-12.9 L 41621-5) NRBC/100 WBC (test See_Comment [Automat ed code = 0304992964) message] The system which generated this result transmit randy reference range : 0.0 - 10.0 /100 WBCs. The reference range was not used to interpret this result as normal/abnormal . NRBC x10^3 (test code <0.01 See_Comment [Auto mated = 4360565473) message] The system which generated this result transmit randy reference range : 10*3/?L. The reference range was not used to interpret this result as normal/abnormal . GRAN MAT (NEUT) % 80.4 % (test code = 770-8) IMM GRAN % (test code 0.90 % = 5880036894) LYMPH % (test code = 13.3 % 736-9) MONO % (test code = 5.1 % 5905-5) EOS % (test code = 0.1 % 713-8) BASO % (test code = 0.2 % 706-2) GRAN MAT x10^3(ANC) 11.93 10*3/uL 1.88-7.09 H (test code = 6685860672) IMM GRAN x10^3 (test 0.14 10*3/uL 0.00-0.06 H code = 5436182016) LYMPH x10^3 (test code 1.97 10*3/uL 1.32-3.29 = 731-0) MONO x10^3 (test code 0.75 10*3/uL 0.33-0.92 = 742-7) EOS x10^3 (test code = <0.03 0.03-0.39 L 711-2) BASO x10^3 (test code 0.03 10*3/uL 0.01-0.07 = 704-7) Lab Interpretation Abnormal (test code = 98223-4) [facility] [id number] 19:33:00 Test Item Value Reference Range Interpretation Comments POCT PREG (test code = 1605) negative On board controls acceptable with present C Line (test code = 3574) POCT PREG LOT # (test code = 3575) [id number] POCT PREG TEST DATE (test 07/11/2022 code = 3576) Lab Interpretation (test code = Normal 73556-4) [facility] [id number] 21:11:00 Test Item Value Reference Range Interpretation Comments POCT PREG (test code = 1605) Negative On board controls acceptable with C Present Line (test code = 3574) Lab Interpretation (test code = Normal 58983-1) [facility] Test Item Value Reference Range Interpretation Comments APPEARANCE (test code = Clear Clear 6782907920) COLOR (test code = Yellow Yellow 7403529665) PH (test code = 4.8-8.0 1147449744) SP GRAVITY (test code = 1.003-1.030 5625858504) GLU U QUAL (test code = Normal Normal 8572465576) BLOOD (test code = Negative Negative 0387933041) KETONES (test code = Negative Negative 0602324174) PROTEIN (test code = Negative Negative 2887-8) UROBILIN (test code = Normal Normal 3380243771) BILIRUBIN (test code = Negative Negative 9612444074) NITRITE (test code = Negative Negative 0548615178) LEUK ALEXIA (test code = Negative Negative 9713439639) RBC/HPF (test code = See_Comment [Autom ated message] 5176410527) The system [place] generated this result transmitted ref erence range: 0 - 3 HP F. The reference range was not used to int erpret this result as normal/abnormal . WBC/HPF (test code = <1 See_Comment [Autom ated message] 5185658932) The system [place] generated this result transmitted ref erence range: 0 - 5 HP F. The reference range was not used to int erpret this result as normal/abnormal . BACTERIA (test code = Negative Negative 2443875174) MUCOUS (test code = Slight Negative LPF A 4044002912) SQ EPITH (test code = See_Comment H [Auto mated message] 4368526046) The system [place] generated this result transmitted ref erence range: <=2 HPF. The reference range was not used to int erpret this result as normal/abnormal . Lab Interpretation (test Abnormal code = 34153-2) [facility] [id number] 20:40:00 Test Item Value Reference Range Interpretation Comments POCT PREG (test code = 1605) negative On board controls acceptable with present C Line (test code = 3574) POCT PREG LOT # (test code = [id number]) POCT PREG TEST DATE (test 12/09/2021 code = 3576) Lab Interpretation (test code = Normal 44416-3) [facility] STREP SCREEN FOR GROUP [id number] 18:28:00 Test Item Value Reference Range Interpretation Comments Streptococcus pyogenes (group A) Negative Negative antigen (test code = 07396-2) Lab Interpretation (test code = Normal 79886-3) [facility] 17:57:00 Test Item Value Reference Range Interpretation Comments MAGNESIUM (test code = 4517828428) 2.2 mg/dL 1.7-2.4 Lab Interpretation (test code = Normal 88821-3) [facility] 17:55:00 Test Item Value Reference Range Interpretation Comments APPEARANCE (test code = Clear Clear 7376607410) COLOR (test code = Yellow Yellow 6205416958) PH (test code = 4.8-8.0 7458227132) SP GRAVITY (test code = 1.003-1.030 1529338658) GLU U QUAL (test code = Normal Normal 0018423544) BLOOD (test code = Negative Negative 7692488247) KETONES (test code = Negative Negative 6198052291) PROTEIN (test code = Negative Negative 2887-8) UROBILIN (test code = Normal Normal 7308208753) BILIRUBIN (test code = Negative Negative 5162039807) NITRITE (test code = Negative Negative 8124541231) LEUK ALEXIA (test code = Negative Negative 7689066660) RBC/HPF (test code = See_Comment [Autom ated message] 5856956036) The system [place] generated this result transmitted ref erence range: 0 - 3 HP F. The reference range was not used to int erpret this result as normal/abnormal . WBC/HPF (test code = <1 See_Comment [Autom ated message] 6959582456) The system [place] generated this result transmitted ref erence range: 0 - 5 HP F. The reference range was not used to int erpret this result as normal/abnormal . BACTERIA (test code = Negative Negative 9001124651) MUCOUS (test code = Moderate Negative LPF A 1804400211) SQ EPITH (test code = <1 HPF 5284990779) Lab Interpretation (test Abnormal code = 71007-7) [facility] [id number] 17:46:00 Test Item Value Reference Range Interpretation Comments NA (test code = 139 mmol/L 135-145 1306011675) K (test code = 3.7 mmol/L 3.5-5 3942186755) CL (test code = 102 mmol/L 98-108 5431221438) CO2 TOTAL (test code = 28 mmol/L 23-31 7004922740) AGAP (test code = 2-16 4125855867) BUN (test code = 14 mg/dL 7-23 7397968715) GLUCOSE (test code = 91 mg/dL 70-110 4610655825) CREATININE (test code 0.75 mg/dL 0.5-1.04 = 6302506744) TOTAL BILI (test code 0.6 mg/dL 0.1-1.1 = 9934107366) CALCIUM (test code = 9.9 mg/dL 8.6-10.6 2379545752) T PROTEIN (test code = 7.5 g/dL 6.3-8.2 5597937545) ALBUMIN (test code = 4.8 g/dL 3.5-5 4822138080) ALK PHOS (test code = 37 U/L 34-122 5008357883) ALTv (test code = 14 U/L 5-35 1742-6) AST(SGOT) (test code = 22 U/L 13-40 8030297705) eGFR Calculation mL/min/1.73m2 (Non-) (test code = 4109371942) eGFR Calculation mL/min/1.73m2 () (test code = 5540999995) KATERYNA (test code = KATERYNA) Association of Glomerular Filtration Rate (GFR) and Staging of Kidney Disease* + -+ + ---+| GFR (mL/min/1.73 m2) ?| With Kidney Damage ?| ?Without Kidney Damage+ -------+ ------+ ---------+| ?>90 ?| ?Stage one ?| ? Normal ?+ --+ -+ ----+| ?60-89 ?| ?Stage two ?| ? Decreased GFR ? + -+ + ---+| ?30-59 ?| ?Stage three ?| ? Stage three ? + -+ + ---+| ?15-29 ?| ?Stage four ? | ? Stage four ?+ --+ -+ ----+| ?<15 (or dialysis) ? ?| ?Stage five ? | ? Stage five ?+ --+ -+ ----+ *Each stage assumes the associated GFR level has been in effect for at least three months. ?Stages 1 to 5, with or without kidney disease, indicate chronic kidney disease. Notes: Determination of stages one and two (with eGFR >59mL/min/1.73 m2) requires estimation of kidney damage for at least three months as defined by structural or functional abnormalities of the kidney, manifested by either:Pathological abnormalities or Markers of kidney damage (including abnormalities in the composition of the blood or urine or abnormalities in imaging tests). [facility], [id number] 17:45:00 Test Item Value Reference Range Interpretation Comments LIPASE (test code = 0790960854) 30 U/L 0-220 Lab Interpretation (test code = Normal 06992-1) [facility] with [id number] 17:32:00 Test Item Value Reference Range Interpretation Comments WBC (test code = See_Comment [Automated 0690-2) message] The sy stem which generated this result transmitted reference range : 4.30 - 11.10 10*3/?L. The reference range was not used to interpret this result as normal/abnormal . RBC (test code = See_Comment [Automated 906-8) message] The sy stem which generated this result transmitted reference range : 3.93 - 5.25 10*6/?L. The reference range was not used to interpret this result as normal/abnormal . HGB (test code = 14.2 g/dL 11.6-15 718-7) HCT (test code = 41.1 % 35.7-45.2 4544-3) MCV (test code = 89.2 fL 80.6-95.5 787-2) MCH (test code = 30.8 pg 25.9-32.8 785-6) MCHC (test code = 34.5 g/dL 31.6-35.1 786-4) RDW-SD (test code = 37.1 fL 39-49.9 L 44234-6) RDW-CV (test code = 11.6 % 12-15.5 L 788-0) PLT (test code = See_Comment [Automated 637-3) message] The sy stem which generated this result transmitted reference range : 166 - 358 10*3/ ?L. The reference r grant was not used to interpret this result as normal/abnormal . MPV (test code = 8.9 fL 9.5-12.9 L 50696-5) NRBC/100 WBC (test See_Comment [Automat ed code = 3241232572) message] The system which generated this result transmitted reference range : 0.0 - 10.0 /100 WBCs. The refer ence range was not u sed to interpret th is result as normal/abnormal . NRBC x10^3 (test code <0.01 See_Comment [Auto mated = 4015649538) message] The s ystem which generated this result transmitted reference range : 10*3/?L. The reference range was not used to interpret this result as normal/abnormal . GRAN MAT (NEUT) % 61.5 % (test code = 770-8) IMM GRAN % (test code 0.40 % = 3574989329) LYMPH % (test code = 27.9 % 736-9) MONO % (test code = 7.4 % 5905-5) EOS % (test code = 2.3 % 713-8) BASO % (test code = 0.5 % 706-2) GRAN MAT x10^3(ANC) 5.26 10*3/uL 1.88-7.09 (test code = 6221576687) IMM GRAN x10^3 (test 0.03 10*3/uL 0-0.06 code = 3729792790) LYMPH x10^3 (test code 2.38 10*3/uL 1.32-3.29 = 731-0) MONO x10^3 (test code 0.63 10*3/uL 0.33-0.92 = 742-7) EOS x10^3 (test code = 0.20 10*3/uL 0.03-0.39 711-2) BASO x10^3 (test code 0.04 10*3/uL 0.01-0.07 = 704-7) Lab Interpretation Abnormal (test code = 29440-8) [facility] [id number] 17:21:00 Test Item Value Reference Range Interpretation Comments POCT PREG (test code = 1605) negative On board controls acceptable with present C Line (test code = 3574) POCT PREG LOT # (test code = 3575) [id number] POCT PREG TEST DATE (test code = 3576) Lab Interpretation (test code = Normal 52842-2) [facility] [id number] 18:46:00 Test Item Value Reference Range Interpretation Comments POCT PREG (test code = 1605) Negative On board controls acceptable with C Yes Line (test code = 3574) POCT PREG LOT # (test code = 3575) POCT PREG TEST DATE (test code = 3576) [facility] [id number] 18:46:00 Test Item Value Reference Range Interpretation Comments POCT PREG (test code = 1605) Negative On board controls acceptable with C Yes Line (test code = 3574) POCT PREG LOT # (test code = 3575) POCT PREG TEST DATE (test code = 3576) [facility] [id number] 18:46:00 Test Item Value Reference Range Interpretation Comments POCT PREG (test code = 1605) Negative On board controls acceptable with C Yes Line (test code = 3574) POCT PREG LOT # (test code = 3575) POCT PREG TEST DATE (test code = 3576) [facility] [id number] 18:46:00 Test Item Value Reference Range Interpretation Comments POCT PREG (test code = 1605) Negative On board controls acceptable with C Yes Line (test code = 3574) POCT PREG LOT # (test code = 3575) POCT PREG TEST DATE (test code = 3576) [facility] [id number] 18:46:00 Test Item Value Reference Range Interpretation Comments POCT PREG (test code = 1605) Negative On board controls acceptable with C Yes Line (test code = 3574) POCT PREG LOT # (test code = 3575) POCT PREG TEST DATE (test code = 3576) [facility] RAPID STREP SCREEN FOR GROUP [id number] 19:48:00 Test Item Value Reference Range Interpretation Comments POCT GP A STREP (test code = positive Negative - Negative 29462-6) [facility] RAPID STREP SCREEN FOR GROUP [id number] 19:48:00 Test Item Value Reference Range Interpretation Comments POCT GP A STREP (test code = positive Negative - Negative 38295-3) [facility] RAPID FLU A AND B [id number] 19:47:00 Test Item Value Reference Range Interpretation Comments POCT INFLUENZA A (test code = Negative Negative - Negative 3840) POCT INFLUENZA B (test code = Negative Negative - Negative 3841) [facility] RAPID FLU A AND B [id number] 19:47:00 Test Item Value Reference Range Interpretation Comments POCT INFLUENZA A (test code = Negative Negative - Negative 3840) POCT INFLUENZA B (test code = Negative Negative - Negative 3841) [facility] [id number] 18:18:00Surgical Pathology Report Case: [id number] Authorizing Provider: Radha Araujo Jr., Collected: 02/17/2019 0852 Ordering Location: [address] Received: 02/17/2019 0943 Pathologist: Jing Ch [...] REACTIVE CHANGECC/pl Signing Pathologist Direct Phone Line: [phone] signed by Jing Ch MD on 02/23/2019 at 6:18 PMThe overall findings arecompatible with history of spontaneous pneumothorax. [place] clinical [place]. 17837 x2, 02738Hil and postop diagnosis: Pneumothorax, rightA. Right middle lobe wedge; B. Right upper lobe wedge; C. Right parietal pleuraA. Received fresh labeled with the patient's name, accession number and "lung,right middle lobe" is a 1.9 cm, 5 x 1.5 x 1 cm lung wedge. The pleura displays a focal area of hemorrhage. The remaining pleura is lavender-pink and smooth. The specimen is serially sectioned to revealpink-red, spongy parenchyma with no gross lesions. The specimen is entirely submitted in A1-A3. B. Received fresh labeled with the patient's name, accession number and "right upper lobe wedge" is 4.0 gm, 5.9 x 2.5 x 1.3 cm lung wedge. The pleura displays a focal area of adhesion with hemorrhage. The re maining pleura is lavender-warner, maroon to pink and mottled and smooth. The area of adhesion is inkedblue. The specimen is serially sectioned to reveal red-pink, spongy parenchyma with areas of anthracosis. No gross lesions are identified. Plaster Machine Operator sections of the area of adhesion with hemorrhage are submitted in B1-B3. C. Received in formalin labeled with the patient's name, accession number and "right parietal" is a 2.5 x 2 x 0.3 cm aggregate of multiple, irregular pink-white fibromembranoustissue fragments with attached adipose tissue. The specimen is submitted in toto in C1. CG/pl A and B: The right middle lobe and right upper lobe wedge resection show similar findings. They show the lung parenchyma with markedly thickened pleura with fibrosis and adhesion. There is also benign with granulation tissue and hemorrhage . Focal mesothelial hyperplasia is also seen. It is negative for malignancy.RAD, CHEST, 1 VIEW, NON [id number] 13:07:00Reason for exam:->CT removalShould this be performed at the bedside?->YesFINAL REPORT Exam: RAD, CHEST, 1 VIEW, NON DEPTDate: 02/20/2019 1:05 PM Indication: Chest tube removal Comparison: Chest radiograph of earlier the same day. FINDINGS: Lines/Tubes: Interval removal of both right chest tubes. EKG leads overlie the thorax. Lungs: The lungs are well-inflated. No focal consolidation or pulmonary edema. Pleura: Unchanged layering right pleural effusion.No pneumothorax. Heart/Mediastinum:The cardiomediastinal silhouette is unchanged in size and contour. Bones/Soft Tissues:No acute fracture or dislocation. Abdomen:No free air under the diaphragm. IMPRESSION:Interval removal of right chest tubes. No pneumothorax. Unchanged layering right pleural effusion. Signed: Radha Cardozoort Verified Date/Time: 02/20/2019 13:07:10 Reading Location: [facility] C013[facility] Reading Room RAD, CHEST, 1 VIEW, NON [id number] 05:26:00Reason for exam:- >pneumothoraxShould this be performed at the bedside?->YesFINAL REPORT Chest one view. Clinical history: pneumothorax Comparison: Chest radiograph 02/19/2019 Technique: A single frontal view of the chest was obtained. Findings:There are right-sided chest tubes unchanged.The cardiomediastinal contours are stable. There are post surgical changes in the right hemithorax with small loculated pleural fluid. There is no pneumothorax. Signed: Silver Novakort Verified Date/Time: 02/20/2019 05:26:31 RAD, CHEST, 1 VIEW, NON [id number] 23:15:00Reason for exam:- >pneomothoraxShould this be performed at the bedside?->YesFINAL REPORT EXAMINATION: AP PORTABLE CHEST RADIOGRAPH CLINICAL INDICATION: Pneumothorax. Chest tubes. IMPRESSION: Compared with 02/19/2019, 1215 hours. Right-sided chest tubes are again noted, similar in position. Asymmetric right lung parenchymal and pleural opacities are similarto previous. A small right-sided pneumothorax is also again suspected, stable. Left lung remains rela tively clear. Cardiac and mediastinal contours are unchanged. Signed: Talat Elliott VerifiedDate/Time: 02/19/2019 23:15:02 Reading Location: [address] Reading Room Electronicallysigned by: TALAT ELLIOTT M.D. on 02/19/2019 11:15 PMRAD, CHEST, 1 VIEW, NON [id number] 13:31:00Reason for exam:->CT to water sealShould this be performed at the bedside?->YesFINAL REPORT TECHNIQUE: Frontal chest radiograph dated 02/19/2019. CLINICAL HISTORY: CT to water seal COMPARISON STUDY: Chest radiograph performed earlier the same day Impression:Two right-sided chest tubes are unchanged in position. There is increased density in the lateral aspectof the right lung, likely bilateral layering effusion versus overlying objects. Left lung is clear. No pneumothorax. Cardiomediastinal silhouette is normal in size. No pulmonary edema. Bones appear osteopenic for patient's stated age. Signed: Kali Chavez MDReport Verified Date/Time: 02/19/2019 13:31:14 Reading Location: [facility] Reading Room [id number] 06:28:00 Test Item Value Reference Range Interpretation Comments MAGNESIUM (BEAKER) (test code = 1.7 mg/dL 1.6-2.6 627) BASIC METABOLIC [id number] 06:28:00 Test Item Value Reference Range Interpretation [...] PATIEN TS. CBC W/PLT COUNT & AUTO [id number] 05:42:00 Test Item Value Reference Range Interpretation [...] = 2801) RAD, CHEST, 1 VIEW, NON [id number] 04:23:00Reason for exam:- >pneumothoraxShould this be performed at the bedside?->YesFINAL REPORT EXAMINATION: AP PORTABLE CHEST RADIOGRAPH CLINICAL INDICATION: Pneumothorax IMPRESSION: Compared with 02/18/2019. Right-sided chest tubes are grossly stable in position. The asymmetric right lung opacities, right pleural effusion and small right-sided pneumothorax are similar to previous. No definite evidence of new lung consolidation. Cardiac and mediastinal contoursare unchanged. Signed: Talat Elliott MDReport Verified Date/Time: 02/19/2019 04:23:03 Reading Location: [address] Reading Room CBC W/PLT COUNT & AUTO [id number] 13:24:00 Test Item Value Reference Range Interpretation [...] = 2801) RAD, CHEST, 1 VIEW, NON [id number] 04:39:00Reason for exam:- >pneumothoraxShould this be performed at the bedside?->YesFINAL REPORT CLINICAL INDICATION: Pneumothorax Comparison: 02/17/2019 at 1011 hours The cardiomediastinal contours are stable. Postsurgical changes are present in the right mid to upper lung. There is a stable right hydropneumothorax. Right chest tubes remain in place. Signed: Oscar Noel MDReport Verified Date/Time: 02/18/2019 04:39:20 Reading Location: [address] Reading Room RAD, CHEST, 1 VIEW, NON [id number] 10:34:00Reason for exam:->post opIs the patient ?->NoShould this be performed at the bedside?->YesFINAL REPORT Chest, 1 view. History: Postop. Comparison: 02/17/2019. Impression: There is a grossly stable small right apicolateral pneumothorax. Two right-sided chest tubes are identified in place. The trachea is midline. There is no evidence for new large focal consolidation or significant pleural effusion. The cardiomediastinal silhouette is within normal limits. No acute osseous abnormalities identified. Signed: Saud Serratoeport Verified Date/Time: 02/17/2019 10:34:25 Reading Location: [facility] Radiology Reading Room [id number] 07:07:00 Test Item Value Reference Range Interpretation Comments MAGNESIUM (BEAKER) 1.8 mg/dL 1.6-2.6 Specimen slightly (test code = 627) hemolyzed [id number] 07:07:00 Test Item Value Reference Range Interpretation Comments PHOSPHORUS (BEAKER) 3.7 mg/dL 2.3-4.7 Specimen slightly (test code = 604) hemolyzed BASIC METABOLIC [id number] 07:07:00 Test Item Value Reference Range Interpretation [...] = 413) RAD, CHEST, 1 VIEW, NON [id number] 04:59:00Reason for exam:- >pneumothoraxShould this be performed at the bedside?->YesFINAL REPORT RAD, CHEST, 1 VIEW, NON DEPT INDICATION: pneumothorax COMPARISON: Prior day's exam FINDINGS: Portable frontal view of the chest. IMPRESSION: Lungs and pleura: Lungs are clear. No pleural effusion. Unchanged small right apical pneumothorax. No left pneumothorax.Heart and mediastinum: Stable contours. Additional findings: None. Signed: Elisha Cespedes Verified Date/Time: 02/17/2019 04:59:14 Reading Location: [address] Transitional Reading Room CT, CHEST, WITHOUT [id number] 02:53:00FINAL REPORT CLINICAL INDICATION: Shortness of breath, pneumothorax COMPARISON:None Multiple axial images of the chest were [...] is a small amount of overlying cutaneous emphysema.Tracheobronchial tree: No significant findings. Pulmonary vasculature: No significant findings. Cardiac contours and great vessels: No significant findings. Mediastinum: No significant findings. Lymph N odes: No adenopathy in the mediastinum or armando. Skeleton: No acute abnormality. Limited images of upper abdomen: No significant findings. IMPRESSION: Small right pneumothorax. A right chest tube is in place, with the distal portion in the major fissure. Small biapical bullae/blebs. Signed: Oscar Noel Verified Date/Time: 02/17/2019 02:53:00 Reading Location: [address] PREGNANCY SCREEN, [id number] 23:45:00 Test Item Value Reference Range Interpretation Comments TEST URINE (BEAKER) (test Negative code = 583) RAD, CHEST, 1 VIEW, NON [id number] 22:03:00Reason for exam:- >pneumothoraxShould this be performed [...] There is no acute bony abnormality. Signed: Noel, Oscar MDReport Verified Date/Time: 02/16/2019 22:03:20 Reading Location: [address] Reading Room
== END 2023-02-25 12:48 | disposition home or self-care (01) ==
LOC: ER 11:27
DX: K08.89 Other specified disorders of teeth and supporting structures (principal); Z53.21 Procedure and treatment not carried out due to patient leaving prior to being seen by health care provider